=== PATIENT | female | born 1980 | race Caucasian/White ===

== ENCOUNTER 2017-02-26 19:16 | Emergency (ER) | payer OTHER, SELFPAY | END 2017-02-26 19:46 | disposition home or self-care (01) | PROVIDERS: Emergency Provider Nurse Practitioner Family; Family Provider Family Medicine; Visit Provider Nurse Practitioner Family | DX: J02.9 Acute pharyngitis, unspecified (principal) | CPT/HCPCS: 87804; 87880; 99201 ==

== ENCOUNTER → 2019-04-13 18:35 | Outpatient (CLI) | payer OTHER, SELFPAY ==
[2019-04-13 18:52] LABS: Basophils # 0.1 K/mm3 (0-0.2); Basophils % 0.4 % (0.1-2.0); Eosinophils # 0.2 K/mm3 (0.0-0.4); Eosinophils % 1.7 % (0.1-12.0); Hematocrit 41.8 % (37.0-47.0); Hemoglobin 13.7 g/dL (12.2-16.2); Lymphocytes # 2.3 K/mm3 (0.7-4.5); Lymphocytes % 20.1 % (10-50); Mean Corpuscular HGB Conc 32.7 g/dL (31.8-35.4); Mean Corpuscular Hemoglobin 29.9 pg (27.0-31.2); Mean Corpuscular Volume 91.4 fl (81-99); Mean Platelet Volume 8.3 fl (7.4-10.4); Monocytes # 0.6 K/mm3 (0.1-1.0); Monocytes % 4.9 % (1.7-9.3); Neutrophils # 8.3 K/mm3 (1.8-7.8); Neutrophils % 72.7 % (37.0-80.0); Platelet Count 298 K/mm3 (142-424); Red Blood Count 4.57 M/mm3 (4.20-5.40); White Blood Count 11.4 K/mm3 (4.8-10.8)
[2019-04-13 19:28] LABS: Amphetamine/Metha Screen,Urine Negative ng/mL (<1000); Barbiturates Screen,Urine Negative ng/mL (<200); Benzodiazepines Screen,Urine Negative ng/mL (<200); Cannabinoid Screen,Urine Negative ng/mL (<50); Cocaine Screen,Urine Negative ng/mL (<300); Methadone Screen,Urine Negative ng/mL (<300); Opiate Screen,Urine Negative ng/mL (<300); Phencyclidine Screen,Urine Negative ng/mL (<25)
[2019-04-13 20:46] LABS: Alanine Aminotransferase 20 U/L (9-52); Albumin Level 3.9 g/dL (3.4-5.0); Albumin/Globulin Ratio 1.3 (1.1-1.8); Alkaline Phosphatase 132 U/L (46-116); Anion Gap 13.8 mEq/L (5-15); Aspartate Amino Transferase 16 U/L (15-37); Bilirubin,Total 0.2 mg/dL (0.2-1.0); Blood Urea Nitrogen 11 mg/dL (7-18); Calcium 8.7 mg/dL (8.5-10.1); Carbon Dioxide 25 mmol/L (21.0-32.0); Chloride 108 mmol/L (98-107); Chol/HDL Ratio 3.4 (1-3.5); Cholesterol 152 mg/dL (140-200); Creatinine,Serum 0.66 mg/dL (0.55-1.02); Estimated Glomerular Filt Rate 99 ml/min (>60); GFR (African American) 120 ML/MIN (>60); Globulin 3.1 gm/dl (1.3-3.2); Glucose 110 mg/dL (74-106); HDL Cholesterol 45 mg/dL (29-89); LDL Cholesterol 67 mg/dL (0-130); Potassium 3.8 mmoL/L (3.5-5.1); Sodium 143 mmol/L (137-145); T4 (Thyroxine) 6.8 ug/dl (4.7-13.3); Thyroid Stimulating Hormone 0.91 uIU/ml (0.358-3.740); Triglycerides 201 mg/dL (30-200); VLDL Cholesterol 40 mg/dL (0-40)
[2019-04-15 10:48] LABS: Vitamin D 25 Hydroxy 20.7 ng/mL (30.0-100.0)
== END ==
PROVIDERS: Visit Provider Nurse Practitioner Family
DX: E66.9 Obesity, unspecified (principal); E55.9 Vitamin D deficiency, unspecified
CPT/HCPCS: 80053; 80061; 80305; 82652; 84436; 84443; 85025

== ENCOUNTER → 2019-04-18 11:37 | Outpatient (CLI) | payer OTHER, SELFPAY ==
--- NOTE | 2019-04-18 11:41 | XR_ITS ---
PROCEDURE: XR CHEST 2V CLINICAL HISTORY: elevated alk phos COMPARISON: No exams were available for comparison FINDINGS: The cardiomediastinal silhouette and pulmonary vascularity are within normal limits. The lungs are clear without infiltrates, suspicious nodules, or pleural effusions. There is mild dextroscoliotic bowing of the mid thoracic spine. IMPRESSION: No acute findings. Dictated by: Jeff Reece 04/18/2019 15:19 Electronically signed by Jeff Reece in [facility] 04/18/2019 15:19
== END ==
PROVIDERS: PCP Internal Medicine Pulmonary Disease; Visit Provider Nurse Practitioner Family
DX: R74.8 Abnormal levels of other serum enzymes (principal)
CPT/HCPCS: 71046

== ENCOUNTER → 2019-05-18 07:37 | Outpatient (CLI) | payer OTHER, MEDICAID, SELFPAY ==
[2019-05-18 11:19] LABS: Alkaline Phosphatase 99 U/L (38-126)
== END ==
PROVIDERS: Visit Provider Nurse Practitioner Family
DX: R74.8 Abnormal levels of other serum enzymes (principal)
CPT/HCPCS: 36415; 84075

== ENCOUNTER 2019-07-25 18:37 | Emergency (ER) | payer OTHER, SELFPAY ==
[2019-07-25 18:38] VITALS: BP 150/87; PULSE 98; RESP 18; TEMP 36.9; O2SAT 100; BMI 30.2
--- NOTE | 2019-07-25 18:45 | CT_ITS ---
PROCEDURE: CT ABDOMEN PELVIS W CON CLINICAL INDICATION: abd pain abd pain and bloating COMPARISON: ABDPELW/O CT ABD PELVIS W/O CONTRAST from 11/03/2015 TECHNIQUE: IV Contrast: 75ML OPTIRAY 350 Oral Contrast none given Axial images obtained with sagittal and coronal reformats. All CT scans at the facility use one or more dose reduction, viz: automated exposure control, ma/kV adjustment per patient size (including targeted exams where dose is matched to indication, i.e. head), or iterative reconstruction technique. FINDINGS: Lower thorax: There is stable minimal postinflammatory scarring right middle lobe, there is no pleural fluid. ABDOMEN: Liver: No masses or biliary dilatation. Gallbladder: Nondistended. No radio opaque stones. Pancreas: No masses or peripancreatic fluid collections. Spleen: unremarkable Adrenals: unremarkable Kidneys/ureters: The kidneys are normal size and show symmetrical function both appearing normal. ABDOMEN & PELVIS: Stomach bowel: The stomach and small bowel appear normal. There is moderate scattered stool and gas seen throughout the colon. Peritoneum: No abnormal fluid collections. No obvious inflammatory changes. No free air. There is a stable small ventral hernia seen just above the level of the umbilicus containing fat only unchanged in size and appearance from the previous exam 11/03/2015. Lymph nodes: No enlarged lymph nodes apparent. Vasculature: No evidence of abdominal aortic aneurysm. No retroperitoneal hemorrhage evident. Bones: No acute fracture PELVIS: Reproductive: The uterus is slightly enlarged and somewhat retroverted. There is a right ovarian cyst measuring 3.4 x 2.8 by 3.1 cm. There appears to be a small amount of fluid within the endometrial canal, I am not aware of the menstrual period status. There is a small amount of cul-de-sac fluid likely physiologic. Bladder: The bladder is partially decompressed Appendix: The appendix is normal caliber and retrocecal in location. IMPRESSION: Stable small ventral hernia containing fat only, small right ovarian cyst with borderline enlarged uterus, no acute abdominal or pelvic pathology identified Dictated by: Dr. Mundo Webb MD 07/25/2019 20:[address] Mundo Webb MD in [facility] 07/25/2019 20:26
[2019-07-25 18:57] LABS: Microscopic, Urine URINE MICROSCOPIC (MICROSCOPIC)
[2019-07-25 19:00] LABS: Basophils # 0.1 K/mm3 (0-0.2); Basophils % 0.6 % (0.1-2.0); Eosinophils # 0.3 K/mm3 (0.0-0.4); Hematocrit 41.5 % (37.0-47.0); Hemoglobin 14.3 g/dL (12.2-16.2); Lymphocytes # 3.5 K/mm3 (0.7-4.5); Lymphocytes % 28.7 % (10-50); Mean Corpuscular HGB Conc 34.5 g/dL (31.8-35.4); Mean Corpuscular Hemoglobin 30.8 pg (27.0-31.2); Mean Corpuscular Volume 89.2 fl (81-99); Mean Platelet Volume 7.6 fl (7.4-10.4); Monocytes # 0.5 K/mm3 (0.1-1.0); Monocytes % 4.4 % (1.7-9.3); Neutrophils # 7.9 K/mm3 (1.8-7.8); Neutrophils % 64.4 % (37.0-80.0); Platelet Count 282 K/mm3 (142-424); Red Blood Count 4.65 M/mm3 (4.20-5.40); Red Cell Distribution Width 12.3 % (11.5-17.5); White Blood Count 12.3 K/mm3 (4.8-10.8)
[2019-07-25 19:02] LABS: Chloride 102 mmol/L (98-107)
[2019-07-25 19:03] LABS: Appearance,Urine CLEAR (Clear); Bilirubin,Urine Negative (Negative); Blood, Urine Negative (Negative); Color,Urine YELLOW (Yellow); Glucose,Urine (UA) Negative (Negative); Ketones,Urine Negative (Negative); Leukocyte Esterase,Urine Negative (Negative); Nitrate,Urine Negative (Negative); Potassium 3.6 mmoL/L (3.5-5.1); Protein,Urine Negative (Negative); Sodium 139 mmol/L (136-145); Specific Gravity, Urine 1.025 (1.005-1.030); Urobilinogen,Urine 0.2 EU/dl (0.2)
[2019-07-25 19:05] LABS: Alanine Aminotransferase 18 U/L (12-78); Alkaline Phosphatase 112 U/L (38-126); Amylase 42 U/L (30-110); Anion Gap 11.6 mEq/L (5-15); Aspartate Amino Transferase 25 U/L (14-36); Bilirubin,Total 0.3 mg/dl (0.2-1.3); Blood Urea Nitrogen 7 mg/dl (7-17); Carbon Dioxide 29 mmol/L (22.0-30.0); Creatinine Clearance Estimated 143 mL/min (50-200); Estimated Glomerular Filt Rate 111 ml/min (>60); GFR (African American) 134 ML/MIN (>60)
[2019-07-25 19:06] LABS: Albumin Level 4.1 g/dl (3.5-5.0); Albumin/Globulin Ratio 1.4 (1.1-1.8); Calcium 9.4 mg/dl (8.4-10.2); Glucose 108 mg/dl (74-100); Lipase 47 U/L (23-300); Total Protein,Serum 7.1 g/dl (6.3-8.2)
[2019-07-25 19:07] LABS: Urine Pregnancy, HCG Qual. Negative (Negative)
[2019-07-25 19:10] LABS: Bacteria,Urine Trace /lpf; Mucus,Urine 1+ /lpf; Squamous Epithelial Cell,Urine Occasional #/hpf (0-5); WBC,Urine Occasional #/hpf (0-3)
--- NOTE | 2019-07-25 19:37 | HMH.EDABDPAI ---
ED Disposition Condition on Discharge: Good - Critical Care Critical Care Time: No <Prince Collins - Last Filed: 07/25/19 19:39> <Ag Bustos - Last Filed: 07/25/19 21:30> Clinical Impression: Abdominal pain Qualifiers: Abdominal location: right upper quadrant Qualified Code(s): R10.11 - Right upper quadrant pain Disposition: Home, Self-Care Instructions: DI for Acute Abdomen Additional Instructions: call pcp in am for follow up Referrals: Bryan Coe MD [Primary Care Provider] - Attestation: On 07/25/19, the high probability of a clinically significant, sudden or life threatening deterioration of the following system(s) required my full and direct attention, intervention and personal management. The time I documented below is in addition to time spent performing reported procedures but includes the following listed in this critical care notation. Medical Decision Making - Medical Records Medical records reviewed: Yes: I reviewed the patient's medical records. - Bravo Inquiry Pt receiving controlled substance: No - Lab Data Lab results reviewed: Yes: I reviewed the patient's lab results. Result diagrams: 07/25/19 18:51 07/25/19 18:51 <Prince Collins - Last Filed: 07/25/19 19:39> - Lab Data Result diagrams: 07/25/19 18:51 07/25/19 18:51 - CT Data CT Scan: Abdomen, Pelvis Time Received: 21:[address] Reviewed: Yes: I have viewed the radiologist's interpretation Preliminary Findings: Abnormal (see report ) - Reevaluation(s) Time: 21:29 <Ag Bustos - Last Filed: 07/25/19 21:30> Vital Signs: 07/25/19 18:38 Temperature 98.5 F Temperature Source Temporal Artery Scan Pulse Rate [Right] 98 H Respiratory Rate 18 Blood Pressure [Right Arm] 150/87 H Blood Pressure Mean [Right Arm] 108 02 Sat by Pulse Oximetry 100 - Lab Data Lab Results 07/25/19 18:51: Urine Color Yellow, Urine Appearance Clear, Urine pH 6.0, Ur Specific [place] 1.025, Urine Protein Negative, Urine Glucose (UA) Negative, Urine Ketones Negative, Urine Blood Negative, Urine Nitrate Negative, Urine Bilirubin Negative, Urine Urobilinogen 0.2, Ur Leukocyte Esterase Negative, Urine WBC Occasional, Ur Squamous Epith Cells Occasional, Urine Bacteria Trace, Urine Mucus 1+ 07/25/19 18:51: WBC 12.3 H, RBC 4.65, Hgb 14.3, Hct 41.5, MCV 89.2, MCH 30.8, MCHC 34.5, RDW 12.3, Plt Count 282, MPV 7.6, Neut % (Auto) 64.4, Lymph % (Auto) 28.7, [place] % (Auto) 4.4, Eos % (Auto) 2.0, Baso % (Auto) 0.6, Neut # (Auto) 7.9 H, Lymph # (Auto) 3.5, [place] # (Auto) 0.5, Eos # (Auto) 0.3, Baso # (Auto) 0.1 07/25/19 18:51: Urine HCG, Qual Negative 07/25/19 18:51: Sodium 139, Potassium 3.6, Chloride 102, Carbon Dioxide 29, Anion Gap 11.6, BUN 7, Creatinine 0.60, Estimated Creat Clear 143, Estimated GFR 111, Est GFR ( Amer) 134, Glucose 108 H, Calcium 9.4, Total Bilirubin 0.3, AST 25, ALT 18, Alkaline Phosphatase 112, Total Protein 7.1, Albumin 4.1, Globulin 3.0, Albumin/Globulin Ratio 1.4, Amylase 42, Lipase 47 Orders (Tests/Meds): ED MEDICATIONS Generic Name Dose Route Start Last Admin Trade Name Freq PRN Reason Stop Dose Admin Sodium Chloride 8 ml 07/25/19 21:18 Sodium Chloride 0.9% 10ml Vial IV 08/24/19 21:17 NEEDED PRN dilute pepcid Discontinued Medications Generic Name Dose Route Start Last Admin Trade Name Freq PRN Reason Stop Dose Admin Famotidine 20 mg 07/25/19 21:18 07/25/19 21:19 Pepcid 20mg/2ml Vial IV 07/25/19 21:19 20 mg ONCE ONE Administration Ioversol 75 ml 07/25/19 20:17 07/25/19 20:21 Rad-Optiray 350 100ml Vial IV 07/25/19 20:18 75 ml ONCE ONE Administration Protocol Ketorolac Tromethamine 30 mg 07/25/19 21:18 07/25/19 21:19 Toradol 30mg/Ml Vial IV 07/25/19 21:19 30 mg ONCE ONE Administration Metoclopramide HCl 10 mg 07/25/19 21:18 07/25/19 21:19 Reglan 10mg/2ml Vial IVP 07/25/19 21:19 10 mg ONCE ONE Administration Sodium Chlorid
[2019-07-25 21:35] VITALS: BP 121/74; PULSE 63; RESP 16; TEMP 36.5; O2SAT 100
== END 2019-07-25 21:40 | disposition home or self-care (01) ==
PROVIDERS: Emergency Provider Family Medicine; PCP Family Medicine
DX: R10.30 Lower abdominal pain, unspecified (principal); R10.11 Right upper quadrant pain; F41.8 Other specified anxiety disorders
CPT/HCPCS: 74177; 80053; 81001; 81025; 82150; 83690; 85025; 96365; 96374; 96375; 99283; Q9967

== ENCOUNTER → 2019-08-01 08:22 | Outpatient (CLI) | payer OTHER, SELFPAY ==
--- NOTE | 2019-08-01 09:32 | US_ITS ---
PROCEDURE: US ABDOMEN LIMITED CLINICAL INDICATION: ABD PAIN,MIGRAINES,N/V Right upper quadrant pain COMPARISON: No exams were available for comparison FINDINGS: PANCREAS: Unremarkable. No obvious mass or abnormal fluid collection. No ductal dilatation LIVER: No focal liver lesions demonstrated. Homogeneous echogenicity. No intrahepatic biliary ductal dilatation evident. There is appropriate direction of blood flow within a non dilated portal vein RIGHT KIDNEY: Unremarkable. Normal size and echogenicity. No hydronephrosis GALLBLADDER: There is a small amount of sludge in the gallbladder. No shadowing stones are demonstrated. Bile duct is normal at 2 mm. No gallbladder wall thickening, pericholecystic fluid, or biliary dilatation is evident. IMPRESSION: Gallbladder sludge otherwise negative right upper quadrant ultrasound Dictated by: Eitan Albert MD 08/01/2019 14:26 Electronically signed by Eitan Albert MD in [facility] 08/01/2019 14:26
== END ==
PROVIDERS: PCP Family Medicine; Visit Provider Nurse Practitioner
DX: R10.9 Unspecified abdominal pain (principal); R11.2 Nausea with vomiting, unspecified; G43.909 Migraine, unspecified, not intractable, without status migrainosus
CPT/HCPCS: 76705

== ENCOUNTER → 2019-08-15 08:59 | Outpatient (CLI) | payer OTHER, SELFPAY ==
--- NOTE | 2019-08-15 09:05 | NM_ITS ---
PROCEDURE: NM HEPATOBILIARY W PHARM CLINICAL INDICATION: N/V,ABD PAIN Gallbladder sludge on ultrasound COMPARISON: No exams were available for comparison TECHNIQUE: DOSE: 8.4 mCi technetium Choletec 1.5 mcg of CCK FINDINGS: Homogeneous activity is present within the hepatic parenchyma. Activity is present in the gallbladder by 5 minutes. Activity is present in the small bowel by 25 minutes. The gallbladder ejection fraction is calculated to be 83 percent. CCK-The patient reported mild pain during CCK infusion. IMPRESSION: Unremarkable hepatobiliary scan. No evidence of common or cystic duct obstruction with normal gallbladder ejection Dictated by: Eitan Albert MD 08/15/2019 17:17 Electronically signed by Eitan Albert MD in [facility] 08/15/2019 17:17
--- NOTE | 2019-08-15 09:30 | HMH.ITSHM ---
Current Home Medications as stated by this patient Diomedes Morris or product support representative. []PHENTERMINE VITAMIN D2
== END ==
PROVIDERS: PCP Family Medicine; Visit Provider Nurse Practitioner
DX: R10.9 Unspecified abdominal pain (principal); R11.2 Nausea with vomiting, unspecified
CPT/HCPCS: 78227; A9537; J2805

== ENCOUNTER → 2019-10-04 08:07 | Outpatient (POV) | payer OTHER, MEDICAID, SELFPAY | PROVIDERS: PCP Family Medicine; Visit Provider Dermatology | DX: Z00.00 Encounter for general adult medical examination without abnormal findings (principal) ==

== ENCOUNTER 2020-02-03 15:05 | Emergency (ER) | payer OTHER, SELFPAY ==
[2020-02-03 15:14] VITALS: BP 140/92; PULSE 100; RESP 18; O2SAT 99; BMI 30.2
--- NOTE | 2020-02-03 15:41 | HMH.EDUTC ---
[facility] [place] Disposition Clinical Impression: Sinusitis Qualifiers: Sinusitis location: unspecified location Chronicity: acute Recurrence: non-recurrent Qualified Code(s): J01.90 - Acute sinusitis, unspecified Disposition: Home, Self-Care Condition on Discharge: Good Instructions: Sinusitis, DI for Sinusitis Additional Instructions: Drink plenty of fluids. Take tylenol or ibuprofen for pain or fever. Take the medications as directed. Follow up with your regular doctor. GO TO THE ER FOR ANY WORSENING SYMPTOMS Prescriptions: Brompheniramine/Pseudoephed/Dm [Bromfed Dm Cough Syrup] 5 ml PO Q6HP PRN #240 syrup PRN Reason: Cough Transmission Status: Received by [id number] predniSONE [Deltasone 10mg tablet] 10 mg PO BID 3 Days #6 tab Transmission Status: Received by [id number] Azithromycin [Z-Christian 250mg Tab*] 250 mg PO UD DOSE PK #6 tab Transmission Status: Received by [id number] Referrals: Bryan Coe MD [Primary Care Provider] - Time of Disposition: 15:51 Medical Decision Making - Medical Records Medical records reviewed: No: I reviewed the patient's medical records. - Bravo Inquiry Pt receiving controlled substance: No Vital Signs: 02/03/20 15:14 02/03/20 15:57 Temperature 98.1 F Temperature Source Oral Pulse Rate 100 H Pulse Rate [Radial] 100 H Respiratory Rate 18 18 Blood Pressure 140/92 H Blood Pressure [Right Arm] 140/92 H Blood Pressure Mean [Right Arm] 108 Blood Pressure Source Automatic Cuff Blood Pressure Source [Right Arm] Automatic Cuff Blood Pressure Position Sitting Blood Pressure Position [Right Arm] Sitting 02 Sat by Pulse Oximetry 99 Oxygen Delivery Method Room Air Room Air - Lab Data Lab Results 02/03/20 15:17: Strep Scn Rapid Clinic Negative Orders (Tests/Meds): ORDERS Category Date Time Status Covid-19 Nasal PCR ([facility]) Stat Lab 02/03/20 15:11 Received Strep Screen Confirmation Stat Micro 02/03/20 15:17 Received [facility] [place] HPI - General Stated complaint: cough, congestion, covid exposure Time Seen by Provider: 02/03/20 15:41 Mode of Arrival: Ambulatory Source of Information: Patient Limitations: No Limitations Description of Symptoms (Recalled from Triage Doc. by RN): sore throat, cough, borges, exhausted since this morning, states she was exposed to covid. HEENT Symptoms (Recalled from RN notes): Yes Resp Symptoms (Recalled from RN notes): No Skin Symptoms (Recalled from RN notes): No MS Symptoms (Recalled from RN notes): No Functional Status (Recalled from RN notes): wnl - History of Present Illness Provider Complaint: She c/o 2 days of worsening sinus congestion. She has also been coughing. She denies any fever/chills/body aches. - Related Data Previous Rx's Medication Instructions Recorded ergocalciferol (vitamin D2) 1,250 50,000 unit PO QWEEK #7 cap 04/16/19 mcg (50,000 unit) capsule phentermine 37.5 mg tablet 37.5 mg PO DAILY #30 tab 06/24/19 Azithromycin [Z-Christian 250mg Tab*] 250 mg PO UD DOSE PK #6 tab 02/03/20 Brompheniramine/Pseudoephed/Dm 5 ml PO Q6HP PRN #240 syrup 02/03/20 [Bromfed Dm Cough Syrup] predniSONE [Deltasone 10mg tablet] 10 mg PO BID 3 Days #6 tab 02/03/20 Allergies Allergy/AdvReac Type Severity Reaction Status Date / Time No Known Allergies Allergy Verified 06/24/19 08:40 - Worker's Comp Is this a Worker's Comp case?: No [facility] History - Hepatitis A Screen Drug use history?: No High risk sexual behaviors?: No History of sexually transmitted infection?: No Currently employed?: No Childcare worker?: No Do you have indoor plumbing?: Yes Do you have electricity?: Yes Attestation statement:: This patient has been screened for Hepatitis A risk factors. I have reviewed the patient's past medical history: Yes Medical History: Reports:: Anxiety, Depression Denies:: Diabetes Mellitus Type 1, Hyperlipidemia, Hypertension, Migraine, MRSA Other Surgeries: Yes: Tubal Lig
[2020-02-03 15:57] VITALS: BP 140/92; PULSE 100; RESP 18; TEMP 36.7; O2SAT 99
[2020-02-03 19:36] LABS: UTC Strep Screen (Rapid) Negative (Negative)
--- NOTE | 2020-02-04 09:33 | PC.NURSE ---
patient notified of positive covid results
== END 2020-02-03 15:59 | disposition home or self-care (01) ==
PROVIDERS: Emergency Provider Nurse Practitioner Family; PCP Family Medicine
DX: U07.1 COVID-19 (principal); F41.8 Other specified anxiety disorders; Z79.899 Other long term (current) drug therapy
CPT/HCPCS: 87880; 99202; U0003

== ENCOUNTER → 2020-02-14 09:30 | Outpatient (CLI) | payer OTHER, MEDICAID, SELFPAY ==
[2020-02-14 11:23] LABS: Coronavirus 19 IgG Antibody Negative (Negative); Coronavirus 19 IgM Antibody Negative (Negative)
== END ==
PROVIDERS: Visit Provider Family Medicine
DX: Z03.818 Encounter for observation for suspected exposure to other biological agents ruled out (principal)
CPT/HCPCS: 36415; 86328

== ENCOUNTER 2020-03-13 04:24 | Emergency (ER) | payer OTHER, SELFPAY ==
[2020-03-13 04:25] VITALS: BP 164/84; PULSE 113; RESP 16; TEMP 36.8; O2SAT 99; BMI 31.9
--- NOTE | 2020-03-13 04:49 | CT_ITS ---
PROCEDURE: CT HEAD/BRAIN WO CON CLINICAL INDICATION: dizziness COMPARISON: No exams were available for comparison TECHNIQUE: Axial images obtained. All CT scans at the facility use one or more dose reduction, viz: automated exposure control, ma/kV adjustment per patient size (including targeted exams where dose is matched to indication, i.e. head), or iterative reconstruction technique. FINDINGS: No midline shift, mass effect, intracranial hemorrhage, hydrocephalus, or extra-axial fluid collection is evident. The calvarium has an unremarkable appearance. No mastoid effusion. No sinus air-fluid level. IMPRESSION: No acute intracranial finding Dictated by: Eitan Albert MD 03/13/2020 06:47 Eitan Albert MD in [place] 03/13/2020 06:47
--- NOTE | 2020-03-13 04:54 | CT_ITS ---
PROCEDURE: CT ABDOMEN PELVIS W CON CLINICAL INDICATION: nausea and vomiting Nausea and vomiting, abdominal cramping COMPARISON: CT CT ABDOMEN PELVIS W CON from 07/25/2019 TECHNIQUE: IV Contrast: 75ML Isovue 370 Oral Contrast None Axial images obtained with sagittal and coronal reformats. All CT scans at the facility use one or more dose reduction, viz: automated exposure control, ma/kV adjustment per patient size (including targeted exams where dose is matched to indication, i.e. head), or iterative reconstruction technique. FINDINGS: LOWER THORAX: There are atelectatic changes in the right middle lobe ABDOMEN & PELVIS: The liver, gallbladder, spleen, adrenal glands, and pancreas have an unremarkable appearance. No intestinal obstruction or free air is evident. No evidence appendicitis or diverticulitis. There is a small supraumbilical hernia which contains fat. There are few fluid-filled loops of small bowel in the left upper quadrant with questionable bowel wall thickening. Possible mild enteritis. There is a complex left ovarian cyst bilobed in nature at 5.5 cm containing an internal septation. The uterus is retroverted and somewhat bulky. Pelvic ultrasound may provide further evaluation. There is a minimal amount of fluid in the cul-de-sac. No acute bony findings. IMPRESSION: 1. Possible mild enteritis. 2. Small supraumbilical hernia. 3. Complex left ovarian cyst and bulky uterus. Pelvic ultrasound may provide further evaluation. Dictated by: Eitan Albert MD 03/13/2020 07:02 Eitan Albert MD in [facility] 03/13/2020 07:02
[2020-03-13 04:56] LABS: Basophils # 0.1 K/mm3 (0-0.2); Basophils % 0.4 % (0.1-2.0); Eosinophils # 0.2 K/mm3 (0.0-0.4); Eosinophils % 1.2 % (0.1-12.0); Hematocrit 43.8 % (37.0-47.0); Hemoglobin 14.5 g/dL (12.2-16.2); Lymphocytes # 3.2 K/mm3 (0.7-4.5); Lymphocytes % 19.5 % (10-50); Mean Corpuscular HGB Conc 33.1 g/dL (31.8-35.4); Mean Corpuscular Volume 90.6 fl (81-99); Mean Platelet Volume 7.4 fl (7.4-10.4); Monocytes % 6.2 % (1.7-9.3); Neutrophils # 11.7 K/mm3 (1.8-7.8); Neutrophils % 72.6 % (37.0-80.0); Platelet Count 289 K/mm3 (142-424); Red Blood Count 4.84 M/mm3 (4.20-5.40); Red Cell Distribution Width 12.6 % (11.5-17.5); White Blood Count 16.2 K/mm3 (4.8-10.8)
[2020-03-13 05:00] LABS: MANUAL DIFFERENTIAL MANUAL DIFFERENTIAL (MANUAL DIFF)
--- NOTE | 2020-03-13 05:00 | CT_ITS ---
PROCEDURE: CT SINUS WO CON CLINICAL HISTORY: dizziness Acute sinusitis COMPARISON: No exams were available for comparison TECHNIQUE: Axial images obtained with sagittal and coronal reformats. All CT scans at the facility use one or more dose reduction, viz: automated exposure control, ma/kV adjustment per patient size (including targeted exams where dose is matched to indication, i.e. head), or iterative reconstruction technique. FINDINGS: Minimal mucosal thickening involves the right maxillary sinus inferiorly. The ostiomeatal complexes are patent. There is minimal leftward nasal septal deviation. There is a right elvia bullosa. The ethmoid frontal and sphenoid sinuses are unremarkable. No mastoid effusion. Scattered small nodes are present in the neck. The TMJs are unremarkable. There are degenerative changes in the cervical spine at C5-C6 and C6-C7 IMPRESSION: 1. No acute finding. 2. Minimal mucosal thickening right maxillary sinus with small right elvia bullosa and mild leftward nasal septal deviation. 3. Cervical spondylosis Dictated by: Eitan Albert MD 03/13/2020 06:50 Eitan Albert MD in [facility] 03/13/2020 06:50
--- NOTE | 2020-03-13 05:01 | PC.NURSE ---
pt to RAD
[2020-03-13 05:05] LABS: Amylase 38 U/L (30-110); Lipase 85 U/L (23-300)
[2020-03-13 05:06] LABS: Alanine Aminotransferase 28 U/L (12-78); Albumin Level 4.2 g/dl (3.5-5.0); Alkaline Phosphatase 126 U/L (38-126); Anion Gap 13.5 mEq/L (5-15); Aspartate Amino Transferase 39 U/L (14-36); Bilirubin,Direct 0.2 mg/dl (0.0-0.4); Bilirubin,Indirect 0.3 mg/dL (0.0-0.9); Bilirubin,Total 0.5 mg/dl (0.2-1.3); Bilirubin,Unconjugated 0.3 mg/dL (0.0-1.1); Blood Urea Nitrogen 11 mg/dl (7-17); Calcium 9.8 mg/dl (8.4-10.2); Carbon Dioxide 24 mmol/L (22.0-30.0); Chloride 104 mmol/L (98-107); Creatinine Clearance Estimated 149 mL/min (50-200); Estimated Glomerular Filt Rate 110 ml/min (>60); GFR (African American) 133 ML/MIN (>60); Glucose 171 mg/dl (74-100); Potassium 3.5 mmoL/L (3.5-5.1); Sodium 138 mmol/L (136-145); Total Protein,Serum 7.4 g/dl (6.3-8.2)
[2020-03-13 05:28] LABS: Microscopic, Urine URINE MICROSCOPIC (MICROSCOPIC)
--- NOTE | 2020-03-13 05:31 | PC.NURSE ---
back from RAD
[2020-03-13 05:35] LABS: Appearance,Urine CLEAR (Clear); Bilirubin,Urine Negative (Negative); Blood, Urine Negative (Negative); Color,Urine YELLOW (Yellow); Glucose,Urine (UA) Negative (Negative); Ketones,Urine Negative (Negative); Leukocyte Esterase,Urine Negative (Negative); Nitrate,Urine Negative (Negative); PH,Urine 5.5 (5.0-8.5); Protein,Urine Negative (Negative); Specific Gravity, Urine >= 1.030 (1.005-1.030); Urobilinogen,Urine 0.2 EU/dl (0.2)
[2020-03-13 05:36] LABS: Urine Pregnancy, HCG Qual. Negative (Negative)
[2020-03-13 05:47] VITALS: BP 120/69; PULSE 98; RESP 17; O2SAT 100
[2020-03-13 06:07] LABS: Erythrocyte Sedimentation Rate 16 mm/hr (0-20)
[2020-03-13 06:20] VITALS: BP 121/85; PULSE 94; RESP 16; O2SAT 96
[2020-03-13 06:33] LABS: Eosinophils % 3 % (0-3); Lymphocytes % 24 % (10-50); Monocytes % 2 % (2-9); Neutrophils % 71 % (42-76); Platelet Estimate Normal; Stomatocytes 1+; Total Cells Counted 100
--- NOTE | 2020-03-13 06:38 | HMH.EDDIZZ ---
ED Disposition Clinical Impression: Vertigo, SIRS (systemic inflammatory response syndrome) Ovarian cyst Qualifiers: Laterality: left Qualified Code(s): N83.202 - Unspecified ovarian cyst, left side Disposition: Home, Self-Care Condition on Discharge: Good Instructions: Dizziness, Nonvertigo Additional Instructions: fluids and see pcp for follow up and recheck if needed in the ed Referrals: Bryan Ceo MD [Primary Care Provider] - - Critical Care Critical Care Time: No Attestation: On 03/13/20, the high probability of a clinically significant, sudden or life threatening deterioration of the following system(s) required my full and direct attention, intervention and personal management. The time I documented below is in addition to time spent performing reported procedures but includes the following listed in this critical care notation. Medical Decision Making - Medical Records Medical records reviewed: Yes: I reviewed the patient's medical records. - Bravo Inquiry Pt receiving controlled substance: No Vital Signs: 03/13/20 04:25 03/13/20 05:47 03/13/20 06:20 Temperature 98.3 F Temperature Source Oral Pulse Rate [Left Radial] 113 H 98 H 94 H Respiratory Rate 16 17 16 Blood Pressure [Right Arm] 164/84 H 120/69 121/85 Blood Pressure Mean [Right Arm] 110 86 97 Blood Pressure Source [Right Arm] Automatic Cuff Automatic Cuff Automatic Cuff Blood Pressure Position [Right Arm] Sitting Sitting Sitting 02 Sat by Pulse Oximetry 99 100 96 Oxygen Delivery Method Room Air Room Air Room Air - Lab Data Lab results reviewed: Yes: I reviewed the patient's lab results. Lab Results 03/13/20 04:37: Urine Color Yellow, Urine Appearance Clear, Urine pH 5.5, Ur Specific [place] >= 1.030, Urine Protein Negative, Urine Glucose (UA) Negative, Urine Ketones Negative, Urine Blood Negative, Urine Nitrate Negative, Urine Bilirubin Negative, Urine Urobilinogen 0.2, Ur Leukocyte Esterase Negative, Urine WBC 3-5, Ur Squamous Epith Cells 3-5 03/13/20 04:37: Urine HCG, Qual Negative 03/13/20 04:42: WBC 16.2 H, RBC 4.84, Hgb 14.5, Hct 43.8, MCV 90.6, MCH 30.0, MCHC 33.1, RDW 12.6, Plt Count 289, MPV 7.4, Neut % (Auto) 72.6, Lymph % (Auto) 19.5, [place] % (Auto) 6.2, Eos % (Auto) 1.2, Baso % (Auto) 0.4, Neut # (Auto) 11.7 H, Lymph # (Auto) 3.2, [place] # (Auto) 1.0, Eos # (Auto) 0.2, Baso # (Auto) 0.1, Total Counted 100, Neutrophils % (Manual) 71, Lymphocytes % (Manual) 24, Monocytes % (Manual) 2, Eosinophils % (Manual) 3, Platelet Estimate Normal, Stomatocytes 1+ 03/13/20 04:42: Sodium 138, Potassium 3.5, Chloride 104, Carbon Dioxide 24, Anion Gap 13.5, BUN 11, Creatinine 0.60, Estimated Creat Clear 149, Estimated GFR 110, Est GFR ( Amer) 133, Glucose 171 H, Calcium 9.8, Total Bilirubin 0.5, Direct Bilirubin 0.2, Conjugated Bilirubin 0.0, Indirect Bilirubin 0.3, Unconjugated Bilirubin 0.3, AST 39 H, ALT 28, Alkaline Phosphatase 126, Total Protein 7.4, Albumin 4.2 03/13/20 04:42: ESR 16 03/13/20 04:42: C-Reactive Protein 3.0, Amylase 38, Lipase 85 Result diagrams: 03/13/20 04:42 03/13/20 04:42 Orders (Tests/Meds): ED MEDICATIONS Generic Name Dose Route Start Last Admin Trade Name Freq PRN Reason Stop Dose Admin Sodium Chloride 1,000 mls @ 999 mls/hr 03/13/20 05:00 03/13/20 04:55 Sod Chlor 0.9% 1000ml Bag IV 03/13/20 06:00 999 mls/hr .Q1H1M ANNITA Administration Sodium Chloride 1,000 mls @ 999 mls/hr 03/13/20 06:45 03/13/20 06:46 Sod Chlor 0.9% 1000ml Bag IV 03/13/20 07:45 999 mls/hr .Q1H1M ANNITA Administration Discontinued Medications Generic Name Dose Route Start Last Admin Trade Name Freq PRN Reason Stop Dose Admin Iopamidol 75 ml 03/13/20 06:17 03/13/20 06:18 Iopamidol-370 (76%);100ml Bottle IV 03/13/20 06:18 75 ml ONCE ONE Administration Methylprednisolone Sodium Succinate 125 mg 03/13/20 04:48 03/13/20 04:55 Methylprednisolone Sod Succ 125mg Vial IV 03/13/20 04:49 125 mg
[2020-03-13 07:56] VITALS: BP 129/88; PULSE 111; O2SAT 96
[2020-03-13 08:07] VITALS: BP 129/89; PULSE 119; RESP 20; TEMP 36.8; O2SAT 97
== END 2020-03-13 08:07 | disposition home or self-care (01) ==
PROVIDERS: Emergency Provider Emergency Medicine; PCP Family Medicine
DX: R42 Dizziness and giddiness (principal); R65.10 Systemic inflammatory response syndrome (SIRS) of non-infectious origin without acute organ dysfunction; N83.202 Unspecified ovarian cyst, left side; F41.8 Other specified anxiety disorders; Z86.16 Personal history of COVID-19; Z79.899 Other long term (current) drug therapy
CPT/HCPCS: 70450; 70486; 74177; 80048; 80076; 81001; 81025; 82150; 83690; 85007; 85025; 85651; 86140; 96365; 96366; 96375; 99283; J2405; Q9967

== ENCOUNTER → 2020-08-13 08:16 | Outpatient (CLI) | payer OTHER, SELFPAY ==
--- NOTE | 2020-08-13 16:34 | XR_ITS ---
PROCEDURE: XR FOOT WT BEARING RT 3V XR foot weight-bearing left three-view CLINICAL INDICATION: Bilateral foot pain COMPARISON: CR XR FOOT WT BEARING LT 3V from 08/13/2020 FINDINGS: Three views of the right foot show no acute fracture or dislocation. Small accessory ossicle adjacent to the talus medially noted. Tiny plantar calcaneal spur. Joint spaces are normal. Three views of the left foot show small accessory ossicle adjacent to the talus medially. No acute fracture or dislocation. Small plantar calcaneal spur. No soft tissue abnormality. IMPRESSION: No acute findings. Small bilateral accessory ossicles adjacent to the talus bilaterally. Small bilateral plantar calcaneal spurs. Dictated by: Simone Lozada 08/14/2020 10:40 Simone Lozada in [facility] 08/14/2020 10:40
== END ==
PROVIDERS: PCP Family Medicine; Visit Provider Podiatrist
DX: M79.672 Pain in left foot (principal); M79.671 Pain in right foot
CPT/HCPCS: 73630

== ENCOUNTER 2021-01-07 15:14 | Emergency (ER) | payer OTHER, SELFPAY ==
[2021-01-07 16:00] VITALS: BP 140/88; PULSE 84; RESP 21; TEMP 36.9; O2SAT 99; BMI 29.7
[2021-01-07 16:21] LABS: Coronavirus 19, PCR Not Detected (NotDetected); Influenza A, PCR Not Detected (NotDetected); Influenza B, PCR Not Detected (NotDetected)
--- NOTE | 2021-01-07 16:24 | HMH.EDUTC ---
[facility] [place] Disposition Clinical Impression: Sinusitis Qualifiers: Sinusitis location: unspecified location Chronicity: unspecified Qualified Code(s): J32.9 - Chronic sinusitis, unspecified Disposition: Home, Self-Care Condition on Discharge: Good Instructions: Sinusitis, DI for Sinusitis, DI for COVID-19 (Suspected or Confirmed ) Additional Instructions: *Monitor Temp, Over the counter Motrin or Tylenol as directed/as needed Tylenol every 4 hours and Motrin every 6 hours (as long as your family doctor has told you that you can take it) for fever or pain. and straight to ER if unable to lower temp less than 101.0 after medication given *Warm salt water gargles may help to soothe the throat *Throat Lozenges *Warm fluids like tea with honey may help to soothe the throat *Sleep elevated *Humidifier/Vaporizer *Flonase 2 sprays in each nostril daily but be aware that it may take 2-3 days before you notice improvement Take medication as prescribed Your throat swab was sent for culture. Those results are typically sent to your primary care. Be sure to follow up in 2-3 days with your family doctor/primary care physician if no improvement so they can review those result and treat if necessary. If you don?t have a primary care doctor, I recommend you get one but in the mean time, you will have to return to a walk in clinic Follow up IMMEDIATELY for new or worsening symptoms or no Noticeable improvement over the next 48-72 hours. 911 for difficulty breathing or swallowing Prescriptions: predniSONE [Deltasone 10mg tablet] 10 mg PO BID 5 Days #10 tab Transmission Status: Pending to [facility] Fluticasone Propionate [Flonase 50mcg nasal spray 16gm] 1 spr NS DAILY #1 ml Transmission Status: Pending to [facility] Azithromycin [Z-Christian 250mg Tab] 250 mg PO DIRECTED #6 tab Transmission Status: Pending to [facility] Referrals: Bryan Coe MD [Primary Care Provider] - As needed Forms: Work/School Release Time of Disposition: 16:38 Medical Decision Making - Bravo Inquiry Pt receiving controlled substance: No Bravo was queried for this patient: No Vital Signs: 01/07/21 16:00 Temperature 98.5 F Temperature Source Oral Pulse Rate [Right Brachial] 84 Respiratory Rate 21 Blood Pressure [Right Arm] 140/88 Blood Pressure Mean [Right Arm] 105 Blood Pressure Source [Right Arm] Automatic Cuff Blood Pressure Position [Right Arm] Sitting 02 Sat by Pulse Oximetry 99 Oxygen Delivery Method Room Air - Lab Data Lab results reviewed: Yes: I reviewed the patient's lab results. Orders (Tests/Meds): ORDERS Category Date Time Status Rapid PCR Covid and Flu A/B Stat Lab 01/07/21 16:[address] [facility] [place] HPI - General Stated complaint: sore throat headache congestion Time Seen by Provider: 01/07/21 16:24 Mode of Arrival: Ambulatory Source of Information: Patient Limitations: No Limitations Description of Symptoms (Recalled from Triage Doc. by RN): PATIENT C/O HEADACHE, SORE THROAT AND CONGESTION SINCE YESTERDAY HEENT Symptoms (Recalled from RN notes): Yes Resp Symptoms (Recalled from RN notes): No Skin Symptoms (Recalled from RN notes): No MS Symptoms (Recalled from RN notes): No Functional Status (Recalled from RN notes): WNL - History of Present Illness Provider Complaint: Patient states that she has been having sinus congestion and pressure and it has continued to feel worse since yesterday. States that she is having sinus congestion and pressure along with cough, sore scratchy throat and body aches States that she worked today and had continued to feel bad do after work she came in to get checked - Related Data Previous Rx's Medication Instructions Recorded Azithromycin [Z-Christian 250mg Tab] 250 mg PO DIRECTED #6 tab 01/07/21 Fluticasone Propionate [Flonase 1 spr NS DAILY #1 ml 01/07/21 50mcg nasal spray 16gm] predniSONE [Deltasone 10mg tablet] 10 mg PO BID 5 Days #10 tab 01/07/21
[2021-01-07 16:26] LABS: UTC Strep Screen (Rapid) Negative (Negative)
[2021-01-07 16:39] VITALS: BP 140/88; PULSE 84; RESP 21; TEMP 36.9; O2SAT 99
== END 2021-01-07 16:44 | disposition home or self-care (01) ==
PROVIDERS: Emergency Provider Nurse Practitioner; PCP Family Medicine
DX: J32.9 Chronic sinusitis, unspecified (principal)
CPT/HCPCS: 87880; 99203; C9803; G0463; U0003; U0005

== ENCOUNTER → 2021-03-15 14:21 | Outpatient (CLI) | payer OTHER, SELFPAY ==
[2021-03-15 14:54] LABS: Influenza A, PCR Not Detected (NotDetected); Influenza B, PCR Not Detected (NotDetected)
[2021-03-15 15:22] LABS: Coronavirus 19, PCR Detected (NotDetected)
== END ==
PROVIDERS: Visit Provider Nurse Practitioner
DX: U07.1 COVID-19 (principal)
CPT/HCPCS: C9803; U0003; U0005

== ENCOUNTER 2021-04-30 09:04 | Emergency (ER) | payer OTHER, SELFPAY ==
[2021-04-30 09:04] VITALS: BP 108/86; PULSE 97; RESP 16; TEMP 36.7; O2SAT 97; BMI 33.0
--- NOTE | 2021-04-30 09:38 | HMH.EDUTC ---
[facility] [place] Disposition Clinical Impression: Sinusitis Qualifiers: Sinusitis location: unspecified location Chronicity: unspecified Qualified Code(s): J32.9 - Chronic sinusitis, unspecified Disposition: Home, Self-Care Condition on Discharge: Good Instructions: Sinusitis, DI for Sinusitis Additional Instructions: *Monitor Temp, Over the counter Motrin or Tylenol as directed/as needed Tylenol every 4 hours and Motrin every 6 hours (as long as your family doctor has told you that you can take it) for fever or pain. and straight to ER if unable to lower temp less than 101.0 after medication given *Warm salt water gargles may help to soothe the throat *Throat Lozenges *Warm fluids like tea with honey may help to soothe the throat *Sleep elevated *Humidifier/Vaporizer *Flonase 2 sprays in each nostril daily but be aware that it may take 2-3 days before you notice improvement Take medication as prescribed Return if needed Follow up IMMEDIATELY for new or worsening symptoms or no Noticeable improvement over the next 48-72 hours. 911 for difficulty breathing or swallowing Prescriptions: Amoxicillin/Potassium Clav [Amox-Clav 875-125 mg Tablet] 1 tab PO BID #14 tab [facility]: [facility] predniSONE [Deltasone 10mg tablet] 10 mg PO BID 5 Days #10 tab Transmission Status: Pending to [facility] Referrals: Bryan Coe MD [Primary Care Provider] - As needed Time of Disposition: 09:42 Medical Decision Making - Bravo Inquiry Pt receiving controlled substance: No Bravo was queried for this patient: No Vital Signs: 04/30/21 09:04 Temperature 98.0 F Temperature Source Oral Pulse Rate [Right] 97 H Respiratory Rate 16 Blood Pressure [Right Arm] 108/86 L Blood Pressure Mean [Right Arm] 93 Blood Pressure Source [Right Arm] Automatic Cuff Blood Pressure Position [Right Arm] Sitting 02 Sat by Pulse Oximetry 97 Oxygen Delivery Method Room Air [facility] [place] HPI - General Stated complaint: congestion, h/a, body aches Time Seen by Provider: 04/30/21 09:38 Mode of Arrival: Ambulatory Source of Information: Patient Limitations: No Limitations Description of Symptoms (Recalled from Triage Doc. by RN): Pt c/o congestion, body aches, headache that started yesterday HEENT Symptoms (Recalled from RN notes): Yes (congestion, body aches, headache) Resp Symptoms (Recalled from RN notes): No Skin Symptoms (Recalled from RN notes): No MS Symptoms (Recalled from RN notes): No Functional Status (Recalled from RN notes): na - History of Present Illness Provider Complaint: Patient states that she has been having sinus issues about a week ago States that yesterday it got worse States that she is having sinus pain and pressure, headache, feeling achy and over all not feeling well States that she thinks she may have a sinus infection - Related Data Previous Rx's Medication Instructions Recorded Azithromycin [Z-Christian 250mg Tab] 250 mg PO DIRECTED #6 tab 01/07/21 Fluticasone Propionate [Flonase 1 spr NS DAILY #1 ml 01/07/21 50mcg nasal spray 16gm] predniSONE [Deltasone 10mg tablet] 10 mg PO BID 5 Days #10 tab 01/07/21 Amoxicillin/Potassium Clav 1 tab PO BID #14 tab 04/30/21 [Amox-Clav 875-125 mg Tablet] predniSONE [Deltasone 10mg tablet] 10 mg PO BID 5 Days #10 tab 04/30/21 Allergies Allergy/AdvReac Type Severity Reaction Status Date / Time No Known Allergies Allergy Verified 11/01/20 15:54 - Worker's Comp Is this a Worker's Comp case?: No [facility] History - Hepatitis A Screen Drug use history?: No High risk sexual behaviors?: No History of sexually transmitted infection?: No Currently employed?: No Childcare worker?: No Do you have indoor plumbing?: Yes Do you have electricity?: Yes Attestation statement:: This patient has been screened for Hepatitis A risk factors. I have reviewed the patient's past medical history: Yes Medical History: Reports:: Anxiety, Depression, Migr
[2021-04-30 09:57] VITALS: BP 108/86; PULSE 97; RESP 16; TEMP 36.7; O2SAT 97
== END 2021-04-30 09:57 | disposition home or self-care (01) ==
PROVIDERS: Emergency Provider Nurse Practitioner; PCP Family Medicine
DX: J32.9 Chronic sinusitis, unspecified (principal)
CPT/HCPCS: 99212; G0463

== ENCOUNTER 2022-02-24 08:56 | Emergency (ER) | payer OTHER, SELFPAY ==
[2022-02-24 09:15] VITALS: BP 137/92; PULSE 82; RESP 16; TEMP 37.1; O2SAT 95; BMI 23.3
--- NOTE | 2022-02-24 09:22 | EXP.UTC ---
Discharge Plan Disposition Patient Disposition: Home, Self-Care Condition: Good Prescriptions Prescriptions: New azithromycin [Zithromax] 250 mg tablet 250 mg PO UD DOSE PK Qty: 6 0RF Rx Instructions: Take two (2) tablets today, then one (1) tablet days #2 thru #5 benzonatate [benzonatate] 100 mg capsule 100 mg PO TIDP PRN (Reason: Cough) Qty: 30 0RF methylprednisolone 4 mg Tablets,Dose Pack 4 mg PO DIRECTED Qty: 21 0RF No Action cholecalciferol (vitamin D3) 25 mcg (1,000 unit) capsule 25 mcg PO DAILY metformin 500 mg tablet 500 mg PO BID Qty: 60 2RF phentermine [Adipex-P] 37.5 mg tablet 37.5 mg PO DAILY Qty: 30 0RF Rx Instructions: must administer 30 minutes before or 1-2 hours after breakfast Referrals Follow up/Referrals: Aftab Alonso MD [Primary Care Provider] - See instructions Activity Restrictions/Add. Instructions Additional Instructions/Restrictions: Drink plenty of fluids. Take tylenol or ibuprofen for pain or fever. Take the medications as directed. Follow up with your regular doctor. GO TO THE ER FOR ANY WORSENING SYMPTOMS Clinical Impressions Clinical Impression: Sinusitis Instructions Patient Instructions: DI for Sinusitis Discharge ED Provider: Simone Fournier [facility] [place] [place] General Stated complaint: Congestion,Cough Mode of Arrival: Ambulatory Source of Information: Patient Limitations: No Limitations Time Seen by Provider: 02/24/22 09:22 Description of Symptoms (Recalled from Triage Doc. by RN): pt comes in with c/o sinus congestion ongoing for a few days. productive cough and head pressure. HEENT Symptoms (Recalled from RN notes): Yes Resp Symptoms (Recalled from RN notes): Yes Skin Symptoms (Recalled from RN notes): No MS Symptoms (Recalled from RN notes): No Functional Status (Recalled from RN notes): n/a History of Present Illness Provider Complaint: She states that for the past 3 days she has had sinus congestion, a sinus headache, and sinus drainage. She denies any fever/chills/body aches. Related Data Home Medications Medication Instructions Recorded Confirmed cholecalciferol (vitamin D3) 25 25 mcg PO DAILY 10/15/21 10/15/21 mcg (1,000 unit) capsule Previous Rx's Medication Instructions Recorded metformin 500 mg tablet 500 mg PO BID #60 tabs 10/15/21 phentermine 37.5 mg tablet 37.5 mg PO DAILY #30 tabs 12/18/21 (Adipex-P) azithromycin 250 mg tablet 250 mg PO UD DOSE PK #6 tabs 02/24/22 (Zithromax) benzonatate 100 mg capsule 100 mg PO TIDP PRN Cough #30 caps 02/24/22 methylprednisolone 4 mg tablets in 4 mg PO DIRECTED #21 tabs 02/24/22 a dose pack Allergies Allergy/AdvReac Type Severity Reaction Status Date / Time No Known Allergies Allergy Verified 02/24/22 09:17 Worker's Comp Is this a Worker's Comp case?: No PFSH [facility] Disclaimer: The information contained in this section may have been updated after the patient was seen, as this information can be updated by other users. Social History Smoking Status: Never smoker alcohol intake: current substance use type: denies use current occupational status: employed Travel in the last 8 weeks: None household members: spouse and children housing: house current occupation: [employer] ROS Obtained: Yes All systems reviewed & no additional complaints except as documented Constitutional Constitutional: Reports chills and Denies fever(s) Eyes Eyes: Denies eye discharge ENT Ears, Nose, Mouth, and Throat: Reports as per HPI Cardiovascular Cardiovascular: Denies chest pain Respiratory Respiratory: Denies chest congestion and Reports cough Gastrointestinal Gastrointestingal: Reports nausea; Denies abdominal pain, constipation, cramping, diarrhea or vomiting Musculoskeletal Musculoskeletal: Denies arthralgias Integumentary/Breasts Skin/Breast: Denies rash Neurologic Flash
[2022-02-24 10:16] VITALS: BP 137/92; PULSE 82; RESP 16; TEMP 37.1
== END 2022-02-24 10:19 | disposition home or self-care (01) ==
PROVIDERS: Emergency Provider Nurse Practitioner Family; PCP Family Medicine
DX: J32.9 Chronic sinusitis, unspecified (principal)
CPT/HCPCS: 96372; 99212; G0463

== ENCOUNTER → 2022-03-31 11:05 | Outpatient (CLI) | payer OTHER, SELFPAY ==
[2022-03-31 10:08] LABS: MANUAL DIFFERENTIAL MANUAL DIFFERENTIAL (MANUAL DIFF); Microscopic, Urine URINE MICROSCOPIC (MICROSCOPIC)
[2022-03-31 10:21] LABS: Appearance,Urine CLEAR (Clear); Basophils % 0.6 % (0.1-2.0); Bilirubin,Urine Negative (Negative); Blood, Urine Negative (Negative); Color,Urine YELLOW (Yellow); Eosinophils # 0.2 K/mm3 (0.0-0.4); Eosinophils % 2.2 % (0.1-12.0); Glucose,Urine (UA) Negative (Negative); Hematocrit 42.8 % (37.0-47.0); Ketones,Urine Negative (Negative); Leukocyte Esterase,Urine Negative (Negative); Lymphocytes # 2.4 K/mm3 (0.7-4.5); Lymphocytes % 32.9 % (10-50); Mean Corpuscular HGB Conc 32.8 g/dL (31.8-35.4); Mean Corpuscular Hemoglobin 29.3 pg (27.0-31.2); Mean Corpuscular Volume 89.3 fl (81-99); Mean Platelet Volume 7.9 fl (7.4-10.4); Monocytes # 0.5 K/mm3 (0.1-1.0); Monocytes % 6.2 % (1.7-9.3); Neutrophils # 4.2 K/mm3 (1.8-7.8); Neutrophils % 58.1 % (37.0-80.0); Nitrate,Urine Negative (Negative); PH,Urine 6.5 (5.0-8.5); Platelet Count 363 K/mm3 (142-424); Protein,Urine Negative (Negative); Red Blood Count 4.79 M/mm3 (4.20-5.40); Red Cell Distribution Width 12.3 % (11.5-17.5); Urobilinogen,Urine 0.2 EU/dl (0.2); White Blood Count 7.3 K/mm3 (4.8-10.8)
[2022-03-31 10:33] LABS: Bacteria,Urine Trace /lpf; Squamous Epithelial Cell,Urine Occasional #/hpf (0-5); WBC,Urine Occasional #/hpf (0-3)
[2022-03-31 10:44] LABS: Alanine Aminotransferase 19 U/L (12-78); Albumin Level 4.3 g/dl (3.5-5.0); Albumin/Globulin Ratio 1.5 (1.1-1.8); Alkaline Phosphatase 120 U/L (38-126); Anion Gap 10.2 mEq/L (5-15); Aspartate Amino Transferase 26 U/L (14-36); Bilirubin,Total 0.4 mg/dl (0.2-1.3); Blood Urea Nitrogen 9 mg/dl (7-17); Calcium 9.2 mg/dl (8.4-10.2); Carbon Dioxide 26 mmol/L (22.0-30.0); Chloride 105 mmol/L (98-107); Chol/HDL Ratio 3.4 (1-3.5); Cholesterol 189 mg/dl (140-200); Estimated Glomerular Filt Rate 135 ml/min (>60); GFR (African American) 163 ML/MIN (>60); Globulin 2.8 g/dL (1.3-3.2); Glucose 105 mg/dl (74-100); HDL Cholesterol 56 mg/dl (40-60); Potassium 4.2 mmoL/L (3.5-5.1); Sodium 137 mmol/L (136-145); Total Protein,Serum 7.1 g/dl (6.3-8.2); Triglycerides 135 mg/dl (30-150); VLDL Cholesterol 27 mg/dL (0-40)
[2022-03-31 10:49] LABS: Hemoglobin A1C 5.6 % (4.0-6.0)
[2022-03-31 10:55] LABS: Direct LDL Cholesterol 110.37 mg/dL (100-129)
[2022-03-31 11:15] LABS: Thyroid Stimulating Hormone 1.18 uIU/mL (0.465-4.68)
[2022-03-31 11:40] LABS: Eosinophils % 2 % (0-3); Lymphocytes % 37 % (10-50); Monocytes % 3 % (2-9); Neutrophils % 58 % (42-76); Platelet Estimate Normal; RBC Morphology Normal; Total Cells Counted 100
== END ==
PROVIDERS: PCP Nurse Practitioner Family; Visit Provider Nurse Practitioner Family
DX: Z00.00 Encounter for general adult medical examination without abnormal findings (principal); Z13.1 Encounter for screening for diabetes mellitus
CPT/HCPCS: 80053; 80061; 81001; 83036; 84443; 85007; 85014; 85018; 85048; 85049

== ENCOUNTER → 2022-04-04 12:51 | Outpatient (CLI) | payer OTHER, SELFPAY ==
--- NOTE | 2022-04-04 13:00 | CA_ITS ---
APPROVED REPORT EXAM: Comprehensive 2D, Doppler, and color-flow Echocardiogram Reservoir Engineer: Emelina Carvajal CRT Ht: 5 ft 1 in Wt: 167lbs BSA: 1.75 BP: 120/78 mmHg Indications: Migraines bubble study, cp Echo Enhancing Agent Indication: Rule out Shunt Agent(s) / Amount(s) Used: Agitated Saline 5 cc Comments: B/S appears positive 2D Dimensions LVOT 1.85 cm (M/F) 1.5-2.5 LA Volume 27.60 mL LA Volume Index 15.40 mL/m2 (M/F) 16-34 M-Mode Dimensions RVDd 2.97 cm (0.9-2.6) LA Diam 3.45 cm (1.9-4.0) LVDd 4.41 cm (3.5-5.7) Ao Diam 3.33 cm (2.0-3.7) LVDs 3.22 cm (3.5-5.7) IVSd 0.59 cm (0.6-1.1) PWd 0.41 cm (0.6-1.1) EF (Teich) 52.80% FS 27.00% EDV (Teich) 88.20 mL TAPSE 2.67 (<1.7) ESV (Teich) 41.60 mL LV Diastology E Decel Time 163.00 (160-240 msec) E/A Ratio 0.82 MED E' 10.80 (< 7 cm/sec) MED A' 15.80 cm/s E'/MED E' Ratio 6.71 (>14) LAT E' 13.60 (<10 cm/sec) LAT A' 15.00 cm/s E/LAT E' Ratio 5.33 (>14) Aortic Valve AO Peak GR. 9.90 mmHg Mitral Valve MV E Max Won. 73.00 (40-130 cm/s) MV A Velocity 88.00 (40-130 cm/s) E/A Ratio 0.82 MV Decel. Time 163.00 (160-240 ms) MV PHT 48.00 ms Pulmonary Valve PV Peak Velocity 118.00 (50-150 cm/s) Tricuspid Valve TR P. Velocity 152.00 cm/s RAP Estimate 10.00 mmHg RVSP 19.20 mmHg Left Ventricle Left atrium is normal size, left ventricle is normal size, estimated ejection fraction 55% with no regional wall motion abnormality, diastolic parameters are within normal range. Right Ventricle Right atrium and right ventricle are normal size and contractility. Atria Intra-atrial septum is intact, agitated saline contrast study with provocative measures identifies right to left shunt likely small patent foramen ovale. Aortic Valve Aortic valve is grossly normal, there is no aortic stenosis or aortic insufficiency. Mitral Valve Mitral valve grossly normal, there is trace mitral regurgitation. Tricuspid Valve Tricuspid grossly normal, there is trace tricuspid regurgitation. Tricuspid regurgitation jet velocity is inadequate for calculation of the right ventricular systolic pressure. Pulmonic Valve Pulmonic valve is poorly visualized. Great Vessels Aortic root is normal size. Inferior vena cava is normal size with normal inspiratory collapse. Pericardium No significant pericardial effusion noted. Conclusion 1. Normal left ventricular size preserved left ventricular systolic function, estimated ejection fraction 55% with no regional wall motion abnormality, diastolic parameters are within normal range. 2. Likely small patent foramen ovale with [id number] shunt. 3. Trace mitral and tricuspid regurgitation. 4. No significant pericardial effusion noted. 5. Inferior vena cava is normal 7 normal inspiratory collapse. Electronically signed by : Rafa Eduardo MD 04/04/2022 16:41:12
== END ==
PROVIDERS: PCP Nurse Practitioner Family; Visit Provider Nurse Practitioner Family
DX: R07.9 Chest pain, unspecified (principal)
CPT/HCPCS: 93306

== ENCOUNTER → 2022-04-08 21:13 | Outpatient (CLI) | payer OTHER, SELFPAY | LOC: LAB 04-11 00:36 → LAB.DROPOF 04-16 08:14 | PROVIDERS: PCP Student in an Organized Health Care Education/Training Program; Visit Provider Student in an Organized Health Care Education/Training Program | DX: J32.9 Chronic sinusitis, unspecified (principal) | CPT/HCPCS: 87070 ==

== ENCOUNTER → 2022-04-14 12:46 | Outpatient (CLI) | payer OTHER, SELFPAY ==
--- NOTE | 2022-04-14 12:46 | MM_ITS ---
PROCEDURE INFORMATION: Exam: MG Bilateral Screening 3D Mammography Exam date and time: 04/14/2022 12:56 PM Age: 41 years old Clinical indication: Screening mammogram TECHNIQUE: Imaging protocol: Bilateral Screening tomosynthesis and 2D mammography including computer-aided detection (CAD) when performed. COMPARISON: 1. MG MAMMO SCREENING DIGITAL TOMOSYNTHESIS BILATERAL W CAD 12/26/2019 2:33 PM 2. US BREAST LEFT LIMITED 01/06/2020 8:12 AM FINDINGS: MAMMOGRAPHY: Breast composition: The breast is heterogeneously dense, which may obscure small masses. Mass: None. Architectural distortion: No new or suspicious architectural distortion. Calcifications: No new or suspicious calcifications are present Asymmetric density: No new or suspicious asymmetric density is present Skin thickening: None. Axillary adenopathy: None. IMPRESSION: No mammographic evidence of malignancy. Recommend annual screening mammography unless otherwise clinically indicated. ASSESSMENT: BI-RADS category 1: Negative
== END ==
PROVIDERS: PCP Student in an Organized Health Care Education/Training Program; Visit Provider Nurse Practitioner Family
DX: Z12.31 Encounter for screening mammogram for malignant neoplasm of breast (principal)
CPT/HCPCS: 77063; 77067

== ENCOUNTER → 2022-04-21 13:16 | Outpatient (CLI) | payer OTHER, SELFPAY ==
--- NOTE | 2022-04-21 13:17 | CT_ITS ---
FINAL REPORT CLINICAL HISTORY: migraines/pfo FINDINGS: Axial images of the head were obtained without and with contrast. Coronal reformatted images were also obtained. This study was performed with techniques to keep radiation doses as low as reasonably achievable (ALARA). Individualized dose reduction techniques using automated exposure control or adjustment of mA and/or kV according to the patient's size were employed. There is no evidence of intracranial hemorrhage or mass. There is no evidence of acute infarct. There is no evidence of shift of the midline structures. No skull abnormality is seen on the bone window images. No abnormal contrast enhancement is seen. IMPRESSION: No acute intracranial abnormality identified. Reviewed, Interpreted and Dictated by Charles Mcdonald III, MD Transcribed by Earle Henning Authenticated and . [facility]
== END ==
PROVIDERS: PCP Nurse Practitioner Family; Visit Provider Physician Assistant
DX: G43.909 Migraine, unspecified, not intractable, without status migrainosus (principal); Q21.12 Patent foramen ovale; R00.0 Tachycardia, unspecified; R07.9 Chest pain, unspecified
CPT/HCPCS: 70470; Q9966

== ENCOUNTER → 2022-04-24 07:44 | Outpatient (CLI) | payer OTHER, SELFPAY ==
--- NOTE | 2022-04-24 | CA_ITS ---
APPROVED REPORT Exam: Exercise Treadmill Technologist: Ariana Juarez, Ht: 5 ft 1 in Wt: 166 lbs BSA: 1.74 m2 HR: 73 bpm BP: 149/83 mmHg Rhythm: NSR Medical History Medications: Prednisone,,,,, RImegapant,,,,, Allergies: No known drug allergies Stress Test Details Test: Harry HR Resting HR: 93 bpm Max Heart Rate (APMHR): 177.785990 bpm Max HR Achieved: 174 bpm Target HR (85% APMHR): 150.217671 bpm % of APMHR: 98.31 BP Resting BP: 149/83 mmHg Max BP: 156/82 mmHg ECG Clinical Reason for Termination: Dyspnea Exercise duration: 09:06 min Highest Stage Achieved: Exercise capacity: 10.1 METs Stress ECG Conclusion EXERCISED 9 MINUTES ON HARRY PROTOCOL WITH A METS OF 10.1. MAX HEART RATE 172 BPM WHICH IS 115% OF PM FOR AGE. TEST STOPPED DUE TO DYSPNEA. NO CHEST PAIN. NO ARRHYTHMIAS/ECTOPY. <1.5MM ST SEGMENT CHANGES. NEGATIVE STRESS. SEE ECHO Test Summary REST . . . . . . . Standing REST . . . . . . . Sitting REST 09:21 0.0 0.0 93 . 149/ 83 . . Stage 1 01:00 10.0 1.7 112 . . . . Stage 1 02:00 10.0 1.7 121 . . . . Stage 1 03:00 10.0 1.7 128 . 152/ 82 . . Stage 2 01:00 12.0 2.5 140 . . . . Stage 2 02:00 12.0 2.5 146 . . . . Stage 2 03:00 12.0 2.5 151 . 156/ 82 . . Stage 3 01:00 14.0 3.4 164 . . . . Stage 3 02:00 14.0 3.4 168 . . . . Stage 3 03:00 14.0 3.4 171 . . . . Stage 4 00:06 16.0 4.2 172 . . . Stop exercise at 09:06 RECOVERY 01:00 0.0 0.0 139 . . . . RECOVERY 02:00 0.0 0.0 121 . . . . RECOVERY 03:00 0.0 0.0 113 . . . . RECOVERY 04:00 0.0 0.0 115 . 145/ 86 . . RECOVERY 04:45 0.0 0.0 109 . 130/ 81 . . Electronically signed by : Rafa Eduardo MD 04/25/2022 12:58:11
--- NOTE | 2022-04-24 07:48 | CA_ITS ---
APPROVED REPORT EXAM: Comprehensive 2D, Doppler, and color-flow Echocardiogram Casing Running Machine Tender: Briana Pena RVT Ht: 5 ft 1 in Wt: 165lbs BSA: 1.74 BP: 126/88 mmHg Indications: CP,PFO,TACHYCARDIA Stress Test Details HR Max Heart Rate (APMHR): 177.874555 bpm Target HR (85% APMHR): 150.732536 bpm BP ECG Conclusion 1. Patient exercised on Harry protocol achieved 10.1 METs of workload on treadmill with no chest pain, EKG was negative for ischemia. 2. The resting echocardiogram showed normal left ventricular size and function with no regional wall motion abnormality, with exercise there is increase in contractility of all the segments of the myocardium with hyperdynamic left ventricular systolic response, no obvious regional wall motion abnormality to suggest underlying ischemic heart disease. 3. Normal exercise stress echo, normal ejection fraction. Electronically signed by : Rafa Eduardo MD 04/25/2022 13:00:10
== END ==
PROVIDERS: PCP Nurse Practitioner Family; Visit Provider Physician Assistant
DX: R07.9 Chest pain, unspecified (principal); R00.0 Tachycardia, unspecified; Q21.12 Patent foramen ovale; G43.909 Migraine, unspecified, not intractable, without status migrainosus
CPT/HCPCS: 93017; 93350

== ENCOUNTER 2022-05-29 15:00 | Outpatient (RCR) | payer OTHER, SELFPAY ==
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
== END 2022-05-29 15:05 | disposition home or self-care (01) ==
LOC: PT 15:00
PROVIDERS: PCP Nurse Practitioner Family; Visit Provider Specialist
DX: G43.909 Migraine, unspecified, not intractable, without status migrainosus (principal); G44.86 Cervicogenic headache
CPT/HCPCS: 97010; 97014; 97110; 97163; G0283

== ENCOUNTER → 2022-08-29 14:30 | Outpatient (CLI) | payer OTHER, SELFPAY ==
[2022-08-29 15:43] LABS: 25-OH Vitamin D, Total 31.9 ng/mL (30-100)
[2022-08-29 16:16] LABS: Vitamin B12 805 pg/mL (239-931)
== END ==
PROVIDERS: PCP Nurse Practitioner Family; Visit Provider Nurse Practitioner Family
DX: R53.83 Other fatigue (principal); E66.3 Overweight; Z68.29 Body mass index [BMI] 29.0-29.9, adult
CPT/HCPCS: 36415; 82306; 82607

== ENCOUNTER 2023-05-11 17:17 | Emergency (ER) | payer BC, SELFPAY ==
[2023-05-11 18:05] VITALS: BP 134/87; PULSE 86; RESP 18; TEMP 37.1; O2SAT 98; BMI 31.5
[2023-05-11 18:12] VITALS: BP 134/87; PULSE 86; RESP 18; TEMP 37.1; O2SAT 98
--- NOTE | 2023-05-11 18:27 | EXP.UTC ---
Discharge Plan Disposition Patient Disposition: Home, Self-Care Condition: Good Prescriptions Prescriptions: New methylprednisolone [Medrol (Christian)] 4 mg tablets,dose pack See Rx Instructions .Route .COMPLEX 6 Days Qty: 21 0RF Rx Instructions: taper pack; amoxicillin-pot clavulanate 875-125 mg Tablet 1 tab PO Q12H Qty: 20 0RF No Action Qulipta 10 mg tablet 10 mg PO DAILY citalopram [Celexa] 10 mg tablet 10 mg PO DAILY Qty: 30 2RF Ubrelvy 50 mg tablet 50 mg PO ONCE PRN (Reason: migraine ) Qty: 30 2RF Rx Instructions: If needed, may take a second dose at least 2 hours after initial dose. MDD 200mg/24hr. Ozempic 0.25 mg or 0.5 mg (2 mg/3 mL) Pen Injector 0.25 mg SQ WEEKLY Rx Instructions: for 4 weeks Referrals Follow up/Referrals: Glendy Brar APRN [Primary Care Provider] - See instructions Activity Restrictions/Add. Instructions Additional Instructions/Restrictions: *Monitor Temp, Over the counter Motrin or Tylenol as directed/as needed Tylenol every 4 hours and Motrin every 6 hours (as long as your family doctor has told you that you can take it) for fever or pain. and straight to ER if unable to lower temp less than 101.0 after medication given *Warm salt water gargles may help to soothe the throat *Throat Lozenges? *Warm fluids like tea with honey may help to soothe the throat? *Sleep elevated *Humidifier/Vaporizer Take medication as prescribed Follow up IMMEDIATELY for new or worsening symptoms or no Noticeable improvement over the next 48-72 hours. 911 for difficulty breathing or swallowing Clinical Impressions Clinical Impression: Sinusitis Instructions Patient Instructions: DI for Sinusitis, Sinusitis Discharge ED Provider: Amber Rose [facility] [place] HPI General Stated complaint: Head congestion Mode of Arrival: Ambulatory Source of Information: Patient Limitations: No Limitations Time Seen by Provider: 05/11/23 18:27 Description of Symptoms (Recalled from Triage Doc. by RN): PATIENT C/O SINUS PRESSURE AND CONGESTION SINCE YESTERDAY HEENT Symptoms (Recalled from RN notes): Yes Resp Symptoms (Recalled from RN notes): No Skin Symptoms (Recalled from RN notes): No MS Symptoms (Recalled from RN notes): No Functional Status (Recalled from RN notes): WNL History of Present Illness Provider Complaint: Patient states that she has been having sinus congestion and drainage in the back of her throat for several days but got worse yesterday States that she is having pain and pressure in her sinuses and behind her eyes and drainage in the back of her throat making her throat feel achy and scratchy Related Data Home Medications Medication Instructions Recorded Confirmed atogepant 10 mg tablet (Qulipta) 10 mg PO DAILY 03/23/23 05/11/23 semaglutide 0.25 mg or 0.5 mg (2 0.25 mg SQ WEEKLY 05/11/23 05/11/23 mg/3 mL) subcutaneous pen injector (Ozempic) Previous Rx's Medication Instructions Recorded citalopram 10 mg tablet (Celexa) 10 mg PO DAILY #30 tabs 03/23/23 ubrogepant 50 mg tablet (Ubrelvy) 50 mg PO ONCE PRN migraine 04/03/23 #30 tabs amoxicillin 875 mg-potassium 1 tab PO Q12H #20 tabs 05/11/23 clavulanate 125 mg tablet methylprednisolone 4 mg tablets in See Rx Instructions .Route 05/11/23 a dose pack (Medrol (Christian)) .COMPLEX 6 days #21 tabs Allergies Allergy/AdvReac Type Severity Reaction Status Date / Time No Known Allergies Allergy Verified 05/07/23 11:34 Worker's Comp Is this a Worker's Comp case?: No PFSH PFS Disclaimer: The information contained in this section may have been updated after the patient was seen, as this information can be updated by other users. Medical History Gallstones BMI 29.0-29.9,adult Sinusitis Body mass index (BMI) of 30.0 to 30.9 in adult Cervicogenic headache Migraine Sinus tachycardia PFO (patent foramen ovale) Chest pain Establishing care with new doctor, encounter for BMI 31.0-31.9,adult Chest pain at rest Diabetes Asthma Migraine Anxiety and depression SIRS (systemic inflammatory response syndrome) Ovarian cyst Vertigo Sinusitis Abdominal pain Sciatica Surgical History H/O tubal ligation 01/25/2011 Family History Father Cancer lung Diabetes Mother Hypertension FHx: mental illness COPD (chronic obstructive pulmonary disease) Social History Smoking Status: Never smoker alcohol intake: current substance use type: denies use current occupational status: employed Travel in the last 8 weeks: None household members: spouse and children housing: house marital status: number of children: 3 current occupation: [employer] ROS Obtained: Yes All systems reviewed & no additional complaints except as documented and Yes Systems reviewed as appropriate & no additional complaints except as documented Constitutional Constitutional: Reports system reviewed and no additional complaints, except as documented, Reports as per HPI and Reports headache(s) ENT Ears, Nose, Mouth, and Throat: Reports system reviewed and no additional complaints, except as documented, Reports as per HPI, Reports headache(s), Reports sinus pain, Reports sinus pressure and Reports sore throat Cardiovascular Cardiovascular: Reports system reviewed and no additional complaints, except as documented and Reports as per HPI Respiratory Respiratory: Reports system reviewed and no additional complaints, except as documented and Reports as per HPI Gastrointestinal Gastrointestingal: Reports system reviewed and no additional complaints, except as documented and as per HPI Neurologic Neurologic: Reports headache(s) Physical Exam General General appearance: alert and in no apparent distress ENT ENT exam: Present mucous membranes moist Expanded ENT Exam Nose exam: Present sinus tenderness Throat exam: Present other (Pharyngeal erythema noted with PND) Respiratory Respiratory exam: Present normal lung sounds bilaterally; Absent respiratory distress or wheezes Cardiovascular Cardiovascular exam: Present regular rate, normal rhythm and normal heart sounds Abdominal Exam Abdominal exam: Present soft and normal bowel sounds; Absent distention or tenderness Neurological Exam Neurological exam: Present alert, oriented X3 and normal gait Medical Decision Making Bravo Inquiry Pt receiving controlled substance: No Bravo was queried for this patient: No Vital Signs: 05/11/23 18:05 05/11/23 18:12 Temperature 98.7 F 98.7 F Temperature Source Oral Pulse Rate 86 Pulse Rate [Left Brachial] 86 Respiratory Rate 18 18 Blood Pressure 134/87 Blood Pressure [Left Arm] 134/87 Blood Pressure Mean [Left Arm] 102 Blood Pressure Source [Left Arm] Automatic Cuff Blood Pressure Position [Left Arm] Sitting 02 Sat by Pulse Oximetry 98 Oxygen Delivery Method Room Air Medical Decision Narrative: Patient states that she has taken Medrol in the past without complications or reactions
== END 2023-05-11 18:37 | disposition home or self-care (01) ==
PROVIDERS: Emergency Provider Nurse Practitioner; PCP Nurse Practitioner Family
DX: J01.90 Acute sinusitis, unspecified (principal); E11.9 Type 2 diabetes mellitus without complications; J45.909 Unspecified asthma, uncomplicated; F41.9 Anxiety disorder, unspecified; F32.A Depression, unspecified
CPT/HCPCS: 99212; 99214; G0463

== ENCOUNTER 2023-08-21 17:42 | Outpatient (CLI) | payer BC, SELFPAY ==
[2023-08-21 18:34] LABS: Basophils # 0.1 K/mm3 (0-0.2); Basophils % 0.6 % (0.1-2.0); Eosinophils # 0.1 K/mm3 (0.0-0.4); Eosinophils % 1.2 % (0.1-12.0); Hematocrit 43.4 % (37.0-47.0); Hemoglobin 13.9 g/dL (12.2-16.2); Lymphocytes # 1.5 K/mm3 (0.7-4.5); Lymphocytes % 20.4 % (10-50); Mean Corpuscular HGB Conc 32.1 g/dL (31.8-35.4); Mean Corpuscular Hemoglobin 30.8 pg (27.0-31.2); Mean Corpuscular Volume 95.9 fl (81-99); Mean Platelet Volume 9.5 fl (7.4-10.4); Monocytes # 0.5 K/mm3 (0.1-1.0); Monocytes % 6.8 % (1.7-9.3); Neutrophils # 5.3 K/mm3 (1.8-7.8); Platelet Count 301 K/mm3 (142-424); Red Blood Count 4.53 M/mm3 (4.20-5.40); White Blood Count 7.5 K/mm3 (4.8-10.8)
[2023-08-21 18:54] LABS: Chloride 104 mmol/L (98-107); Potassium 4.3 mmoL/L (3.5-5.1); Sodium 140 mmol/L (136-145)
[2023-08-21 18:55] LABS: Hemoglobin A1C 4.9 % (4.0-6.0)
[2023-08-21 18:56] LABS: Alanine Aminotransferase 16 U/L (12-78); Alkaline Phosphatase 106 U/L (38-126); Anion Gap 10.3 mEq/L (5-15); Aspartate Amino Transferase 27 U/L (14-36); Bilirubin,Total 0.5 mg/dl (0.2-1.3); Blood Urea Nitrogen 10 mg/dl (7-17); Carbon Dioxide 30 mmol/L (22.0-30.0); Estimated Glomerular Filt Rate 109 ml/min (>60); GFR (African American) 131 ML/MIN (>60)
[2023-08-21 18:57] LABS: Albumin/Globulin Ratio 1.5 (1.1-1.8); Calcium 9.6 mg/dl (8.4-10.2); Chol/HDL Ratio 3.2 (1-3.5); Cholesterol 154 mg/dl (140-200); Globulin 2.6 g/dL (1.3-3.2); Glucose 65 mg/dl (74-100); HDL Cholesterol 48 mg/dl (40-60); Total Protein,Serum 6.6 g/dl (6.3-8.2); Triglycerides 114 mg/dl (30-150); VLDL Cholesterol 23 mg/dL (0-40)
[2023-08-21 19:08] LABS: Direct LDL Cholesterol 79.42 mg/dL (100-129)
[2023-08-21 19:15] LABS: 25-OH Vitamin D, Total 34.2 ng/mL (30-100)
[2023-08-21 19:16] LABS: Free T4 (Free Thyroxine) 0.91 ng/dl (0.78-2.19)
[2023-08-21 19:29] LABS: Thyroid Stimulating Hormone 1.11 uIU/mL (0.465-4.68)
[2023-08-21 19:53] LABS: Iron 155 ug/dL (37-170); Total Iron Binding Capacity 292 ug/dL (265-497)
[2023-08-21 20:31] LABS: Vitamin B12 669 pg/mL (239-931)
[2023-08-21 20:34] LABS: Ferritin 18.4 ng/ml (6.24-137)
== END 2023-08-21 23:59 | disposition home or self-care (01) ==
LOC: LAB.DROPOF 17:46
PROVIDERS: PCP Nurse Practitioner Family; Visit Provider Nurse Practitioner Family
DX: Z13.220 Encounter for screening for lipoid disorders (principal); G43.109 Migraine with aura, not intractable, without status migrainosus; R53.83 Other fatigue; Z13.1 Encounter for screening for diabetes mellitus; E66.9 Obesity, unspecified; Z68.31 Body mass index [BMI] 31.0-31.9, adult
CPT/HCPCS: 80050; 80053; 80061; 82306; 82607; 82728; 83036; 83540; 83550; 84439; 84443; 85025

== ENCOUNTER 2023-09-17 16:39 | Emergency (ER) | payer BC, SELFPAY ==
[2023-09-17 16:50] VITALS: BP 117/62; PULSE 63; RESP 19; TEMP 37; O2SAT 99; BMI 29.6
--- NOTE | 2023-09-17 16:59 | EXP.UTC ---
Discharge Plan Disposition Patient Disposition: Home, Self-Care Condition: Good Prescriptions Prescriptions: New ondansetron 4 mg Tablet,Disintegrating 4 mg PO Q8H PRN (Reason: Nausea) Qty: 12 0RF No Action propranolol 40 mg tablet 40 mg PO DAILY Patient Comments: TAKE ONE TABLET BY MOUTH TWICE DAILY sertraline 50 mg tablet 50 mg PO DAILY Patient Comments: TAKE ONE TABLET BY MOUTH EVERY DAY Qulipta 10 mg tablet 10 mg PO DAILY Patient Comments: TAKE 1 TABLET BY MOUTH ONCE DAILY Referrals Follow up/Referrals: Glendy Brar APRN [Primary Care Provider] - See instructions Activity Restrictions/Add. Instructions Additional Instructions/Restrictions: Drink plenty of fluids. Take tylenol or ibuprofen for pain or fever. Take the zofran as directed if you have nausea. Follow up with your regular doctor. GO TO THE ER FOR ANY WORSENING SYMPTOMS Clinical Impressions Clinical Impression: Acute viral syndrome Stand Alone Forms Stand Alone Forms: Work/School Release Instructions Patient Instructions: DI for Viral Syndrome Discharge ED Provider: Simone Fournier [facility] General Stated complaint: sore throat, GARCIA, body aches Time Seen by Provider: 09/17/23 16:58 Related Data Home Medications Medication Instructions Recorded Confirmed atogepant 10 mg tablet (Qulipta) 10 mg PO DAILY 09/17/23 09/17/23 propranolol 40 mg tablet 40 mg PO DAILY 09/17/23 09/17/23 sertraline 50 mg tablet 50 mg PO DAILY 09/17/23 09/17/23 Previous Rx's Medication Instructions Recorded ondansetron 4 mg disintegrating 4 mg PO Q8H PRN Nausea #12 tabs 09/17/23 tablet Allergies Allergy/AdvReac Type Severity Reaction Status Date / Time No Known Allergies Allergy Verified 09/09/23 13:15 [facility] Disclaimer: The information contained in this section may have been updated after the patient was seen, as this information can be updated by other users. Medical History Sinusitis Gallstones BMI 29.0-29.9,adult Sinusitis Body mass index (BMI) of 30.0 to 30.9 in adult Cervicogenic headache Migraine Sinus tachycardia PFO (patent foramen ovale) Chest pain Establishing care with new doctor, encounter for BMI 31.0-31.9,adult Chest pain at rest Diabetes Asthma Migraine Anxiety and depression SIRS (systemic inflammatory response syndrome) Ovarian cyst Vertigo Sinusitis Abdominal pain Sciatica Surgical History H/O tubal ligation 01/25/2011 Family History Father Cancer lung Diabetes Mother Hypertension FHx: mental illness COPD (chronic obstructive pulmonary disease) Social History Smoking Status: Never smoker alcohol intake: current alcohol intake frequency: holidays/special occasions only substance use type: denies use current occupational status: employed Travel in the last 8 weeks: None household members: spouse and children housing: house marital status: number of children: 3 current occupation: [employer] ROS Obtained: Yes All systems reviewed & no additional complaints except as documented Constitutional Constitutional: Reports chills and Reports fever(s) Eyes Eyes: Denies eye discharge ENT Ears, Nose, Mouth, and Throat: Reports as per HPI Cardiovascular Cardiovascular: Denies chest pain Respiratory Respiratory: Denies chest congestion and Reports cough Gastrointestinal Gastrointestingal: Reports nausea; Denies abdominal pain, constipation, cramping, diarrhea or vomiting Musculoskeletal Musculoskeletal: Denies arthralgias Integumentary/Breasts Skin/Breast: Denies rash Neurologic Neurologic: Denies paresthesias Physical Exam General General appearance: alert and in no apparent distress Head Head exam: atraumatic, normocephalic and normal inspection Eye Eye exam: Present normal appearance, PERRL and EOMI ENT ENT exam: Present normal exam, normal oropharynx, mucous membranes moist, TM's normal bilaterally and normal external ear exam Neck Neck exam: Present normal inspection, full ROM and trachea midline; Absent meningismus or lymphadenopathy Chest Chest inspection: Present normal inspection and symmetric chest wall rise; Absent tenderness Respiratory Respiratory exam: Present normal lung sounds bilaterally; Absent respiratory distress Cardiovascular Cardiovascular exam: Present regular rate and normal rhythm; Absent JVD Abdominal Exam Abdominal exam: Present soft and normal bowel sounds; Absent distention, tenderness or guarding Extremities Exam Extremities exam: Present normal inspection, full ROM and normal capillary refill; Absent calf tenderness Back Exam Back exam: Present normal inspection; Absent tenderness Neurological Exam Neurological exam: Present alert and oriented X3 Psychiatric Psychiatric exam: Present normal affect and normal mood Skin Skin exam: Present warm, dry, intact and normal color Lymphatic Lymphatic Findings: no adenopathy Medical Decision Making Medical Records Medical records reviewed: No I reviewed the patient's medical records. Bravo Inquiry Pt receiving controlled substance: No
[2023-09-17 17:11] LABS: UTC Strep Screen (Rapid) Negative (Negative)
[2023-09-17 17:30] VITALS: BP 117/62; PULSE 63; RESP 19; TEMP 37; O2SAT 99
== END 2023-09-17 17:34 | disposition home or self-care (01) ==
PROVIDERS: Emergency Provider Nurse Practitioner Family; PCP Nurse Practitioner Family
DX: R51.9 Headache, unspecified (principal); R07.0 Pain in throat; B34.9 Viral infection, unspecified
CPT/HCPCS: 87635; 87880; 99212; 99214; G0463

== ENCOUNTER 2023-10-15 06:04 | Day surgery (SDC) | payer BC, SELFPAY ==
[2023-10-13 15:25] VITALS: BMI 29.8
[2023-10-15] VITALS (11 sets, daily range): BP systolic 115–146; BP diastolic 71–86; PULSE 62–88; RESP 14–18; TEMP 36.2–43; O2SAT 95–100
[2023-10-15] MEDS: LACTATED RINGERS 1000ML 1,000 ML 25 ML IV (06:22)
[2023-10-15 06:31] LABS: Urine Pregnancy, HCG Qual. Negative (Negative)
--- NOTE | 2023-10-15 07:06 | P.PNANES_ITS ---
[facility] Disclaimer: The information contained in this section may have been updated after the patient was seen, as this information can be updated by other users. Medical History Sinusitis Gallstones BMI 29.0-29.9,adult Sinusitis Body mass index (BMI) of 30.0 to 30.9 in adult Cervicogenic headache Migraine Sinus tachycardia PFO (patent foramen ovale) Chest pain Establishing care with new doctor, encounter for BMI 31.0-31.9,adult Chest pain at rest Diabetes Asthma Migraine Anxiety and depression SIRS (systemic inflammatory response syndrome) Ovarian cyst Vertigo Sinusitis Abdominal pain Sciatica Surgical History H/O tubal ligation 01/25/2011 Family History Father Cancer lung Diabetes Mother Hypertension FHx: mental illness COPD (chronic obstructive pulmonary disease) Social History Smoking Status: Never smoker alcohol intake: never substance use type: denies use current occupational status: employed Travel in the last 8 weeks: None household members: spouse and children housing: house marital status: number of children: 3 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 Anesthesia Checklist Patient Identification Patient Identification: Arm Band and Family Structural Data Admitted From: Home Planned Operative Procedure/s: Laparoscopic Cholecystectomy Consent for Planned Operative Procedure(s) Verified: Yes Verified Documents: Surgical Consent and History and Physical NPO Status Verified Time NPO: 00:00 Additional verifications Anesthesia Reactions: No Hx Blood Transfusions: No Blood Transfusion Reaction: No Airway Assessment Mallampati Score:: Class II C-Spine Mobility Assessed: Yes TMJ Mobility Assessed: Yes Dentition: Good Dentition Neurological Assessment Level of Consciousness: Awake, Alert and Appropriate Anesthesia Plan Anesthesia Risk discussed: Yes Anesthesia Plan: Verified ASA Class: II Anesthesia Type: General
--- NOTE | 2023-10-15 07:16 | P.OP_ITS ---
Date of procedure: 10/15/23 Pre-op Diagnosis:: Chronic calculus cholecystitis Post-op Diagnosis:: Same Procedure performed:: Laparoscopic cholecystectomy Surgeon:: Wilberto Morley MD Anesthesia: GETAftab Estimated blood loss (mL): 15 Operative findings:: Significant pericholecystic fat stranding Infundibular thickening Operative note:: After informed consent was obtained, the patient was taken to the operating room and placed in the supine position. General anesthesia was induced and the abdomen was prepped and draped in a sterile fashion. After infiltration with local anesthetic an infraumbilical incision was made. A Veress needle was p laced in position. The abdomen was insufflated. A 5 mm optical trocar was placed in position. Under direct visualization, a 12 mm trocar was placed in the subxiphoid position and 2 additional 5 mm trocars were placed in the right upper quadrant. The gallbladder was elevated up and over the liver margin. The tissue around the cystic duct was carefully dissected. 3 clips were placed proximally and the duct was transected with harmonic harley. Harmonic harley were then utilized to dissect the gallbladder away from the liver margin with careful attention to the control of the cystic artery. The gallbladder was placed in a retrieval bag and removed through the subxiphoid trocar site. The right upper quadrant was thoroughly irrigated. No active bleeding or bile leak was noted. Fascia at the subxiphoid trocar site was reapproximated utilizing the NeoClose device. The remaining trocars were removed. All wounds were irrigated and skin was closed with 4-0 Monocryl in a subcuticular fashion. Steri-Strips were applied. The patient's anesthetic agents were reversed and extubation was completed prior to transfer to recovery in stable condition. Condition: stable Disposition: PACU Specimens:: Gallbladder and contents Complications:: No immediate
[2023-10-15] MEDS: CEFAZOLIN SODIUM 1GM ADV 1 GM IV (07:30)
[2023-10-15] MEDS: 0.9 % SODIUM CHLORIDE 50 ML 100 ML IV (07:30)
[2023-10-15] MEDS: SODIUM CHLORIDE IRRIG SOLUTION 3,000 ML 25 ML IR (08:02)
[2023-10-15] MEDS: LIDOCAINE 1% 20ML MDV 20 ML (08:02)
--- NOTE | 2023-10-15 09:06 | P.PNANES_ITS ---
[facility] Anesthesia Record Part I Anesthesia Record I Intake, IV Amount: 850 Hydration: Adequate Estimated blood loss (mL): 15 Urine output (mL): 0 Blood Products used (#): none Blood Pressure: 146/77 SaO2: 97 Pulse Rate: 85 Airway Patency: Patent Respiratory Rate: 14 Temperature: 97.2 F Patient is:: Awake and Stable Stable to PACU at:: 09:05
[2023-10-15 09:11] LABS: POC Glucose,Bedside 127 (70-110)
--- NOTE | 2023-10-15 11:17 | EXP.ANES.II ---
[facility] Anesthesia Record Part II Anesthesia Record Part II Discharge Time: 09:30 Destination: Surgical Day Care (OP Surgery) PACU nurse assessment reviewed?: Yes Patient Condition:: Good Anesthesia Complications:: None Swallowing reflex intact?: Yes Airway Patency: Patent Cyanosis?: No Blood Pressure: 124/77 SaO2: 98 Respiratory Rate: 16 Pulse Rate: 67 Temperature: 98 F Mental Status: Alert & Oriented Pain level:: 0 Nausea and/or vomitting:: None Intake, IV Amount: 850 Hydration: Adequate
[2023-10-15 11:42] LABS: POC Glucose,Bedside 112 (70-110)
== END 2023-10-15 10:05 | disposition home or self-care (01) ==
PROVIDERS: PCP Nurse Practitioner Family; Visit Provider Surgery
PROC: 0FT44ZZ Resection of Gallbladder, Percutaneous Endoscopic Approach (ICD-10-PCS; CPT 47562; principal; 2023-10-15 07:30)
DX: R10.13 Epigastric pain (principal); K80.10 Calculus of gallbladder with chronic cholecystitis without obstruction
CPT/HCPCS: 47562; 81025; 82962; 96374; J3490; J0690; J1100; J1885; J2250; J2405; J3010; J7120

== ENCOUNTER 2023-11-03 16:37 | Emergency (ER) | payer BC, SELFPAY ==
[2023-11-03 18:05] VITALS: BP 135/74; PULSE 86; RESP 19; TEMP 36.8; O2SAT 98; BMI 29.9
--- NOTE | 2023-11-03 18:08 | EXP.UTC ---
Discharge Plan Disposition Patient Disposition: Home, Self-Care Condition: Good Prescriptions Prescriptions: New azithromycin [Zithromax] 250 mg tablet 250 mg PO UD DOSE PK Qty: 6 0RF Rx Instructions: Take two (2) tablets today, then one (1) tablet days #2 thru #5 benzonatate 100 mg capsule 100 mg PO TIDP PRN (Reason: Cough) Qty: 30 0RF methylprednisolone 4 mg Tablets,Dose Pack 4 mg PO DIRECTED 6 Days Qty: 21 0RF Rx Instructions: Take 1 pack as directed for 6 days No Action triamcinolone acetonide 0.1 % cream 1 applic topical BID Qty: 15 0RF Qulipta 10 mg tablet 10 mg PO DAILY Qty: 90 2RF Ubrelvy 50 mg tablet 50 mg PO ONCE PRN (Reason: migraine ) Qty: 30 2RF Rx Instructions: If needed, may take a second dose at least 2 hours after initial dose. MDD 200mg/24hr. propranolol 40 mg tablet 40 mg PO DAILY Patient Comments: TAKE ONE TABLET BY MOUTH TWICE DAILY sertraline [Zoloft] 50 mg tablet 50 mg PO DAILY Patient Comments: TAKE ONE TABLET BY MOUTH EVERY DAY ondansetron 4 mg Tablet,Disintegrating 4 mg PO Q8H PRN (Reason: Nausea) Qty: 12 0RF hydrocodone-acetaminophen 5-325 mg tablet 1 tab PO Q6H PRN (Reason: post-op pain) Qty: 17 0RF Referrals Follow up/Referrals: Glendy Brar APRN [Primary Care Provider] - See instructions Activity Restrictions/Add. Instructions Additional Instructions/Restrictions: Drink plenty of fluids. Take tylenol or ibuprofen for pain or fever. Take the medications as directed. Follow up with your regular doctor. GO TO THE ER FOR ANY WORSENING SYMPTOMS Clinical Impressions Clinical Impression: Acute bronchitis, Sinusitis Stand Alone Forms Stand Alone Forms: Work/School Release Instructions Patient Instructions: DI for Sinusitis, DI for Acute Bronchitis Print Language Print Language: Persian Discharge ED Provider: Simone Fournier [facility] General Stated complaint: sore htroat, cough Time Seen by Provider: 11/03/23 18:08 Related Data Home Medications ?Medication ?Instructions ?Recorded ?Confirmed propranolol 40 mg tablet 40 mg PO DAILY 09/17/23 10/13/23 sertraline 50 mg tablet (Zoloft) 50 mg PO DAILY 09/17/23 10/13/23 Previous Rx's ?Medication ?Instructions ?Recorded ondansetron 4 mg disintegrating 4 mg PO Q8H PRN Nausea #12 tabs 09/17/23 tablet hydrocodone 5 mg-acetaminophen 325 1 tab PO Q6H PRN post-op pain #17 10/15/23 mg tablet tabs triamcinolone acetonide 0.1 % 1 applic topical BID #15 grams 10/22/23 topical cream atogepant 10 mg tablet (Qulipta) 10 mg PO DAILY #90 tabs 10/26/23 ubrogepant 50 mg tablet (Ubrelvy) 50 mg PO ONCE PRN migraine 10/26/23 #30 tabs azithromycin 250 mg tablet 250 mg PO UD DOSE PK #6 tabs 11/03/23 (Zithromax) benzonatate 100 mg capsule 100 mg PO TIDP PRN Cough #30 caps 11/03/23 methylprednisolone 4 mg tablets in 4 mg PO DIRECTED 6 days #21 tabs 11/03/23 a dose pack Allergies Allergy/AdvReac Type Severity Reaction Status Date / Time No Known Allergies Allergy Verified 10/22/23 08:01 [facility] Disclaimer: The information contained in this section may have been updated after the patient was seen, as this information can be updated by other users. Medical History Sinusitis Gallstones BMI 29.0-29.9,adult Sinusitis Body mass index (BMI) of 30.0 to 30.9 in adult Cervicogenic headache Migraine Sinus tachycardia PFO (patent foramen ovale) Chest pain Establishing care with new doctor, encounter for BMI 31.0-31.9,adult Chest pain at rest Diabetes Asthma Migraine Anxiety and depression SIRS (systemic inflammatory response syndrome) Ovarian cyst Vertigo Sinusitis Abdominal pain Sciatica Surgical History H/O tubal ligation 01/25/2011 Family History Father Cancer lung Diabetes Mother Hypertension FHx: mental illness COPD (chronic obstructive pulmonary disease) Social History Smoking Status: Never smoker alcohol intake: never substance use type: denies use current occupational status: employed Travel in the last 8 weeks: None household members: spouse and children housing: house marital status: number of children: 3 current occupation: [employer] department ROS Obtained: Yes All systems reviewed & no additional complaints except as documented Constitutional Constitutional: Reports chills and Reports fever(s) Eyes Eyes: Denies eye discharge ENT Ears, Nose, Mouth, and Throat: Reports as per HPI Cardiovascular Cardiovascular: Denies chest pain Respiratory Respiratory: Denies chest congestion and Reports cough Gastrointestinal Gastrointestingal: Reports nausea; Denies abdominal pain, constipation, cramping, diarrhea or vomiting Musculoskeletal Musculoskeletal: Denies arthralgias Integumentary/Breasts Skin/Breast: Denies rash Neurologic Neurologic: Denies paresthesias Physical Exam General General appearance: alert and in no apparent distress Head Head exam: atraumatic, normocephalic and normal inspection Eye Eye exam: Present normal appearance, PERRL and EOMI ENT ENT exam: Present mucous membranes moist and normal external ear exam Expanded ENT Exam TM/Canal exam: Bilateral TM: erythema and bulging Nose exam: Absent sinus tenderness Mouth exam: Present normal external inspection; Absent drooling Teeth exam: Present normal inspection Throat exam: Present tonsillar erythema, tonsillomegaly and tonsillar exudate Neck Neck exam: Present normal inspection, full ROM and trachea midline; Absent tenderness, meningismus or lymphadenopathy Chest Chest inspection: Present normal inspection and symmetric chest wall rise; Absent tenderness Respiratory Respiratory exam: Present normal lung sounds bilaterally; Absent respiratory distress, wheezes or stridor Cardiovascular Cardiovascular exam: Present regular rate and normal rhythm; Absent systolic murmur or diastolic murmur Abdominal Exam Abdominal exam: Present soft and normal bowel sounds; Absent distention, tenderness, guarding, rebound or rigidity Extremities Exam Extremities exam: Present normal inspection and normal capillary refill; Absent calf tenderness Back Exam Back exam: Present normal inspection and full ROM; Absent tenderness, CVA tenderness (R) or CVA tenderness (L) Neurological Exam Neurological exam: Present alert, oriented X3 and CN II-XII intact Psychiatric Psychiatric exam: Present normal affect and normal mood Skin Skin exam: Present warm, dry, intact and normal color Medical Decision Making Medical Records Medical records reviewed: No I reviewed the patient's medical records. Bravo Inquiry Pt receiving controlled substance: No Lab Data Lab results reviewed: Yes I reviewed the patient's lab results.
[2023-11-03 18:38] VITALS: BP 135/74; PULSE 86; RESP 19; TEMP 36.8; O2SAT 98
== END 2023-11-03 18:40 | disposition home or self-care (01) ==
PROVIDERS: Emergency Provider Nurse Practitioner Family; PCP Nurse Practitioner Family
DX: J20.9 Acute bronchitis, unspecified (principal); J01.90 Acute sinusitis, unspecified; R07.0 Pain in throat
CPT/HCPCS: 99212; 99214; G0463

== ENCOUNTER 2023-11-09 15:32 | Emergency (ER) | payer BC, SELFPAY ==
[2023-11-09] VITALS (9 sets, daily range): BP systolic 125–165; BP diastolic 74–90; PULSE 53–87; RESP 13–24; TEMP 36.7–37.1; O2SAT 95–100; BMI 29.8
--- NOTE | 2023-11-09 15:31 | ECG_ITS ---
APPROVED REPORT Exam: Resting ECG HR:66 bpm ECG Measurements Heart Rate 66 AXES NE 147 P 58 QRSd 81 QRS 45 QT 401 T 57 QTc 414 Conclusion SINUS RHYTHM POSSIBLE RIGHT VENTRICULAR CONDUCTION DELAY [RSR (QR) IN V1/V2] BORDERLINE ECG Electronically signed by : KERLINE PARSON, 11/09/2023 23:11:59
--- NOTE | 2023-11-09 15:41 | XR_ITS ---
FINAL REPORT CLINICAL HISTORY: recent URI, CP FINDINGS: 2 views of the chest were obtained . The heart is normal in size. The mediastinum is within normal limits. There is bronchial wall thickening consistent with bronchitis. There is no pneumothorax. Osseous structures are unremarkable. IMPRESSION: Bronchial wall thickening consistent with bronchitis. Reviewed, Interpreted and Dictated by Charles Mcdonald III, MD Transcribed by Katie Hutchinson Authenticated and [facility]
--- NOTE | 2023-11-09 15:48 | ED_ITS ---
Discharge Plan Disposition Patient Disposition: Xfer Short-Term Hosp Chief Complaint: PAIN Prescriptions Prescriptions: No Action triamcinolone acetonide 0.1 % cream 1 applic topical BID Qty: 15 0RF Qulipta 10 mg tablet 10 mg PO DAILY Qty: 90 2RF Ubrelvy 50 mg tablet 50 mg PO ONCE PRN (Reason: migraine ) Qty: 30 2RF Rx Instructions: If needed, may take a second dose at least 2 hours after initial dose. MDD 200mg/24hr. propranolol 40 mg tablet 40 mg PO DAILY Patient Comments: TAKE ONE TABLET BY MOUTH TWICE DAILY sertraline [Zoloft] 50 mg tablet 50 mg PO DAILY Patient Comments: TAKE ONE TABLET BY MOUTH EVERY DAY ondansetron 4 mg Tablet,Disintegrating 4 mg PO Q8H PRN (Reason: Nausea) Qty: 12 0RF hydrocodone-acetaminophen 5-325 mg tablet 1 tab PO Q6H PRN (Reason: post-op pain) Qty: 17 0RF azithromycin [Zithromax] 250 mg tablet 250 mg PO UD DOSE PK Qty: 6 0RF Rx Instructions: Take two (2) tablets today, then one (1) tablet days #2 thru #5 benzonatate 100 mg capsule 100 mg PO TIDP PRN (Reason: Cough) Qty: 30 0RF methylprednisolone 4 mg Tablets,Dose Pack 4 mg PO DIRECTED 6 Days Qty: 21 0RF Rx Instructions: Take 1 pack as directed for 6 days Referrals Follow up/Referrals: Glendy Brar APRN [Primary Care Provider] - See instructions Clinical Impressions Clinical Impression: Transaminitis, Common bile duct dilation, Chest pain Print Language Print Language: Occitan Discharge ED Provider: Kian London HPI General Chief Complaint: PAIN Stated Complaint: chest pain Time Seen by Provider: 11/09/23 15:35 History of Present Illness HPI narrative: Patient is a 42-year-old female with past medical history of recently diagnosed upper respiratory tract infection who presents emergency department for evaluation of chest pain. Patient has no significant comorbidities, she had her gallbladder taken out over a month ago for which things have been going well. Over the last week she has had upper respiratory symptoms, cough, congestion but no significant chest pain for which she was seen by urgent care and discharged on a Z-Christian. Over the last 24 hours she has had persistent substernal chest pain that is nonmodifiable, she also has mid thoracic back pain in a bandlike distribution around her bra line. No vomiting, no diarrhea, no dysuria. No other acute complaints at this time. Per chart review of surgery conducted on it was uneventful and patient was diagnosed with calculus cholecystitis without obstruction. Related Data Home Medications ?Medication ?Instructions ?Recorded ?Confirmed propranolol 40 mg tablet 40 mg PO DAILY 09/17/23 10/13/23 sertraline 50 mg tablet (Zoloft) 50 mg PO DAILY 09/17/23 10/13/23 Previous Rx's ?Medication ?Instructions ?Recorded ondansetron 4 mg disintegrating 4 mg PO Q8H PRN Nausea #12 tabs 09/17/23 tablet hydrocodone 5 mg-acetaminophen 325 1 tab PO Q6H PRN post-op pain #17 10/15/23 mg tablet tabs triamcinolone acetonide 0.1 % 1 applic topical BID #15 grams 10/22/23 topical cream atogepant 10 mg tablet (Qulipta) 10 mg PO DAILY #90 tabs 10/26/23 ubrogepant 50 mg tablet (Ubrelvy) 50 mg PO ONCE PRN migraine 10/26/23 #30 tabs azithromycin 250 mg tablet 250 mg PO UD DOSE PK #6 tabs 11/03/23 (Zithromax) benzonatate 100 mg capsule 100 mg PO TIDP PRN Cough #30 caps 11/03/23 methylprednisolone 4 mg tablets in 4 mg PO DIRECTED 6 days #21 tabs 11/03/23 a dose pack Allergies Allergy/AdvReac Type Severity Reaction Status Date / Time No Known Allergies Allergy Verified 10/22/23 08:01 [facility] Disclaimer: The information contained in this section may have been updated after the patient was seen, as this information can be updated by other users. Medical History Sinusitis Gallstones BMI 29.0-29.9,adult Sinusitis Body mass index (BMI) of 30.0 to 30.9 in adult Cervicogenic headache Migraine Sinus tachycardia PFO (patent foramen ovale) Chest pain Establishing care with new doctor, encounter for BMI 31.0-31.9,adult Chest pain at rest Diabetes Asthma Migraine Anxiety and depression SIRS (systemic inflammatory response syndrome) Ovarian cyst Vertigo Sinusitis Abdominal pain Sciatica Surgical History H/O tubal ligation 01/25/2011 Family History Father Cancer lung Diabetes Mother Hypertension FHx: mental illness COPD (chronic obstructive pulmonary disease) Social History Smoking Status: Never smoker alcohol intake: never substance use type: denies use current occupational status: employed Travel in the last 8 weeks: None household members: spouse and children housing: house marital status: number of children: 3 current occupation: [employer] ROS Obtained: Yes Systems reviewed as appropriate & no additional complaints except as documented Physical Exam General General appearance: alert and in no apparent distress Head Head exam: atraumatic and normocephalic Eye Eye exam: Present PERRL and EOMI ENT ENT exam: Present mucous membranes moist Neck Neck exam: Present normal inspection Chest Chest inspection: Present normal inspection and symmetric chest wall rise Respiratory Respiratory exam: Present normal lung sounds bilaterally; Absent respiratory distress or wheezes Cardiovascular Cardiovascular exam: Present regular rate and normal rhythm Abdominal Exam Abdominal exam: Present soft; Absent tenderness Extremities Exam Extremities exam: Present normal inspection Back Exam Back exam: Absent tenderness Neurological Exam Neurological exam: Present alert Psychiatric Psychiatric exam: Present normal affect Skin Skin exam: Present warm and dry HEART Score HEART Score HEART Score assessment performed?: Yes History (anamnesis): Moderately suspicious ECG: Normal Age: <45 years Risk factors: No known risk factors Troponin: </= normal limit HEART Score: 1 Critical Care Critical Care Time Critical Care Time: Yes Attestation: On 11/09/23, the high probability of a clinically significant, sudden or life threatening deterioration of the following system(s) required my full and direct attention, intervention and personal management. The time I documented below is in addition to time spent performing reported procedures but includes the following listed in this critical care notation. Total Time Total Critical Care Time: 45 Medical Decision Making Bravo Inquiry Pt receiving controlled substance: No Vital Signs Vital Signs: 11/09/23 15:32 11/09/23 16:24 11/09/23 16:30 Temperature 98.0 F Temperature Source Oral Pulse Rate 55 L 53 L Pulse Rate [Right] 70 Respiratory Rate 23 24 14 Blood Pressure 150/84 H 138/82 Blood Pressure [Right Arm] 165/88 H Blood Pressure Mean [Right Arm] 113 Blood Pressure Source [Right Arm] Automatic Cuff 02 Sat by Pulse Oximetry 99 100 98 Oxygen Delivery Method Room Air Room Air Room Air 11/09/23 17:00 11/09/23 17:47 11/09/23 18:00 Temperature Temperature Source Pulse Rate 61 76 70 Pulse Rate [Right] Respiratory Rate 15 13 14 Blood Pressure 126/82 145/84 H 145/81 H Blood Pressure [Right Arm] Blood Pressure Mean [Right Arm] Blood Pressure Source [Right Arm] 02 Sat by Pulse Oximetry 95 99 99 Oxygen Delivery Method Room Air Room Air Room Air 11/09/23 18:30 11/09/23 19:25 Temperature Temperature Source Pulse Rate 65 70 Pulse Rate [Right] Respiratory Rate 13 Blood Pressure 151/90 H 125/82 Blood Pressure [Right Arm] Blood Pressure Mean [Right Arm] Blood Pressure Source [Right Arm] 02 Sat by Pulse Oximetry 99 96 Oxygen Delivery Method Room Air Lab Data Labs: Lab Results 11/09/23 15:33: WBC 7.6, RBC 4.73, Hgb 14.3, Hct 44.8, MCV 94.6, MCH 30.2, MCHC 32.0, RDW 12.4, Plt Count 348, MPV 8.2, Neut % (Auto) 72.2, Lymph % (Auto) 18.7, Bollinger % (Auto) 6.3, Eos % (Auto) 1.7, Baso % (Auto) 1.0, Neut # (Auto) 5.5, Lymph # (Auto) 1.4, Bollinger # (Auto) 0.5, Eos # (Auto) 0.1, Baso # (Auto) 0.1, D-Dimer 2.24 H, Sodium 137, Potassium 3.6, Chloride 101, Carbon Dioxide 32 H, Anion Gap 7.6, BUN 5 L, Creatinine 0.50 L, Estimated Creat Clear 162, Estimated GFR 134, Est GFR ( Amer) 162, Glucose 122 H, Calcium 9.4, Total Bilirubin 3.5 H, A ST 1480 H*, ALT 1299 H*, Alkaline Phosphatase 214 H, Troponin I < 0.01, Total Protein 7.6, Albumin 4.0, Globulin 3.6 H, Albumin/Globulin Ratio 1.1, Serum HCG, Qual Negative 11/09/23 17:12: PT 10.9, INR 0.97, Ammonia 27 11/09/23 17:47: Sodium 137, Potassium 3.4 L, Chloride 100, Carbon Dioxide 32 H, Anion Gap 8.4, BUN 4 L, Creatinine 0.50 L, Estimated Creat Clear 162, Estimated GFR 134, Est GFR ( Amer) 162, Glucose 113 H, Calcium 8.9, Total Bilirubin 3.6 H, Direct Bilirubin 2.5 H, AST 1381 H*, ALT 1179 H*, Alkaline Phosphatase 235 H, Total Protein 7.2, Albumin 4.1, Globulin 3.1, Albumin/Globulin Ratio 1.3, Lipase 75, Salicylates < 1.0 L, Acetaminophen 14 11/09/23 17:48: VBG pH 7.35, VBG pCO2 52.4 H, VBG pO2 34.9, VBG HCO3 28.0, VBG Total CO2 29.6 H, VBG O2 Saturation 67.4, VBG Base Excess 2.3, VBG Lactic Acid 1.7 11/09/23 15:33 11/09/23 17:47 Response Orders (Tests/Meds): ED MEDICATIONS Generic Name Dose Route Start Last Admin Trade Name Freq PRN Reason Stop Dose Admin Piperacillin Sod/Tazobactam 100 mls @ 200 mls/hr 11/09/23 19:00 11/09/23 19:27 Sod 4.5 gm/ Sodium Chloride IV 11/19/23 18:59 200 mls/hr Q8H ANNITA Administration Sodium Chloride 10 ml 11/09/23 17:27 11/09/23 17:28 Sodium Chloride 0.9% 10ml Syr (Rad Only) IV 12/09/23 17:26 10 ml NEEDED PRN Administration Maintain IV Site Discontinued Medications Generic Name Dose Route Start Last Admin Trade Name Freq PRN Reason Stop Dose Admin Acetaminophen 1,000 mg 11/09/23 15:41 11/09/23 16:20 Acetaminophen 1,000mg/100ml Vial IV 11/09/23 15:42 1,000 mg ONCE ONE Administration Belladonna Alkaloids 60 ml 11/09/23 15:47 11/09/23 16:20 Belladonna Alkaloids 60 Ml Ml PO 11/09/23 15:48 60 ml ONCE ONE Administration Lactated Ringer's 1,000 mls @ 999 mls/hr 11/09/23 16:56 11/09/23 17:29 Lactated Ringer's 1000 Ml Bag IV 11/09/23 17:56 999 mls/hr .Q1H1M ONE Administration Piperacillin Sod/Tazobactam 100 mls @ 200 mls/hr 11/09/23 18:38 11/09/23 19:26 Sod 4.5 gm/ Sodium Chloride IV 11/09/23 19:07 Not Given ONCE ONE Iopamidol 80 ml 11/09/23 17:27 11/09/23 17:28 Iopamidol-370 (76%);100ml Bottle IV 11/09/23 17:28 80 ml ONCE ONE Administration Ketorolac Tromethamine 30 mg 11/09/23 15:41 11/09/23 16:21 Ketorolac 30mg/Ml Vial IV 11/09/23 15:42 30 mg ONCE ONE Administration Morphine Sulfate 4 mg 11/09/23 18:55 11/09/23 19:22 Morphine 4mg/Ml Syringe IV 11/09/23 18:56 4 mg ONCE ONE Administration Sodium Chloride 50 ml 11/09/23 17:27 11/09/23 17:28 0.9 % Sodium Chloride 50 Ml Vial IV 11/09/23 17:28 50 ml ONCE ONE Administration ORDERS Category Date Time Status CT abdomen pelvis w con Stat Cat Scan 11/09/23 16:[address] angio chest - dissection Stat Cat Scan 11/09/23 16:55 Taken CXR 2 view (NOT portable) [XR chest 2V] Stat Exams 11/09/23 15:41 Completed POCUS Point of Care (ER Only) Stat Exams 11/09/23 15:47 Completed Acetaminophen Routine Lab 11/09/23 17:47 Completed Ammonia Stat Lab 11/09/23 17:12 Completed Bilirubin,Direct Stat Lab 11/09/23 17:47 Completed CBC w/Auto Diff [Complete Blood Count Auto Diff] Stat Lab 11/09/23 15:33 Completed CMP [Comprehensive Metabolic Panel] Stat Lab 11/09/23 15:33 Completed CMP [Comprehensive Metabolic Panel] Stat Lab 11/09/23 17:47 Completed D-Dimer Stat Lab 11/09/23 15:33 Completed HCG Qualitative, Serum Stat Lab 11/09/23 15:33 Completed Hepatitis Panel Stat Lab 11/09/23 17:47 Received INR [Prothrombin Time INR] Stat Lab 11/09/23 17:12 Completed Lipase Stat Lab 11/09/23 17:47 Completed Procalcitonin Stat Lab 11/09/23 17:47 Received Salicylate Routine Lab 11/09/23 17:47 Completed Trop I [Troponin I] Stat Lab 11/09/23 15:33 Completed Blood Culture Stat Micro 11/09/23 18:49 Received VBG [Venous Blood Gas] Stat RT 11/09/23 17:48 Completed ECG Data Tracing #1: ECG Narrative: Independently interpreted by me, rate is 66, rhythm is regular, axis is normal, no ST elevation in anatomical contiguous leads, QTc 414 MDM Narrative Medical Decision Narrative: In summary patient is a 42-year-old female past medical history described above who presents emergency department for evaluation of chest pain in the setting of upper respiratory tract infection. Patient is hemodynamically stable nontoxic- appearing upon arrival, afebrile. Differential diagnosis includes ACS, noncardiac chest pain, pleurisy, pulmonary embolism, dissection, among others. Workup will be conducted with hematologic labs, two-view chest x-ray. I consider patient low risk pretest for pulmonary embolism and dissection therefore D-dimer will be obtained. Initial inventions include Tylenol, GI cocktail, Toradol. Initial workup reviewed by me, no significant leukocytosis, D-dimer is elevated which will necessitate CT imaging to rule out pulmonary embolism versus dissection. No critical electrolyte abnormalities or ABBY. There is fulminant hepatitis of undetermined etiology with elevated bilirubin. Repeat CMP, direct bilirubin, INR, ammonia, hepatitis panel, Tylenol and salicylate level will be added on. I had an interactive discussion with radiology who contacted me personally, they are concerned for radiographic findings consistent with acute cholangitis with mild central intrahepatic ductal dilatation despite the fact that the common bile duct appears to taper normally the presence of biliary ductal dilatation seems out of proportion to reservoir effect from status postcholecystectomy. CTA chest pending. On repeat physical exam patient does have right upper quadrant pain but is not modifiable. Morphine will be administered. Broad-spectrum antibiotics with Zosyn will be initiated after obtaining blood cultures. Patient appears euvolemic therefore aggressive fluid resuscitation was considered on top of her previous bolus will be deferred. INR and ammonia normal. Acid-base status normal. Direct bilirubin 2.5. Tylenol level is 14 is nonactionable given that she has had Tylenol before the level was drawn. Patient is adamant that she has not ingested anything prior to arrival. Salicylates undetectably low. Patient will require gastroenterology for continued evaluation therefore send Church will be contacted. I discussed this case with Dr. Vides at [facility] at approximately 7:30 PM, they recommend adding on a procalcitonin and patient was added to wait list for which there are few people ahead of her. I discussed the case with Dr. Lockhart [facility] graciously accepted patient for transfer for continued evaluation at this time. CTA chest pending.
[2023-11-09 15:55] LABS: Basophils # 0.1 K/mm3 (0-0.2); Eosinophils # 0.1 K/mm3 (0.0-0.4); Eosinophils % 1.7 % (0.1-12.0); Hematocrit 44.8 % (37.0-47.0); Hemoglobin 14.3 g/dL (12.2-16.2); Lymphocytes # 1.4 K/mm3 (0.7-4.5); Lymphocytes % 18.7 % (10-50); Mean Corpuscular Hemoglobin 30.2 pg (27.0-31.2); Mean Corpuscular Volume 94.6 fl (81-99); Mean Platelet Volume 8.2 fl (7.4-10.4); Monocytes # 0.5 K/mm3 (0.1-1.0); Monocytes % 6.3 % (1.7-9.3); Neutrophils # 5.5 K/mm3 (1.8-7.8); Neutrophils % 72.2 % (37.0-80.0); Platelet Count 348 K/mm3 (142-424); Red Blood Count 4.73 M/mm3 (4.20-5.40); Red Cell Distribution Width 12.4 % (11.5-17.5); White Blood Count 7.6 K/mm3 (4.8-10.8)
[2023-11-09] MEDS: BELLADONNA ALKALOIDS 60 ML ML PO (16:20)
[2023-11-09] MEDS: ACETAMINOPHEN 1,000MG/100ML VIAL 1000 MG IV (16:20)
[2023-11-09] MEDS: KETOROLAC 30MG/ML VIAL 30 MG IV (16:21)
[2023-11-09 16:22] LABS: HCG Qualitative, Serum Negative (Negative)
[2023-11-09 16:30] LABS: Albumin/Globulin Ratio 1.1 (1.1-1.8); Alkaline Phosphatase 214 U/L (38-126); Anion Gap 7.6 mEq/L (5-15); Bilirubin,Total 3.5 mg/dl (0.2-1.3); Blood Urea Nitrogen 5 mg/dl (7-17); Calcium 9.4 mg/dl (8.4-10.2); Carbon Dioxide 32 mmol/L (22.0-30.0); Chloride 101 mmol/L (98-107); Creatinine Clearance Estimated 162 mL/min (50-200); Estimated Glomerular Filt Rate 134 ml/min (>60); GFR (African American) 162 ML/MIN (>60); Globulin 3.6 g/dL (1.3-3.2); Glucose 122 mg/dl (74-100); Potassium 3.6 mmoL/L (3.5-5.1); Sodium 137 mmol/L (136-145); Total Protein,Serum 7.6 g/dl (6.3-8.2)
[2023-11-09 16:36] LABS: D-Dimer 2.24 ug/mL (0.0-0.5)
[2023-11-09 16:37] LABS: Alanine Aminotransferase 1299 U/L (12-78)
[2023-11-09 16:43] LABS: Troponin I < 0.01 ng/ml (0.00-0.034)
--- NOTE | 2023-11-09 16:55 | CT_ITS ---
PROCEDURE INFORMATION: Exam: CT Abdomen And Pelvis With Contrast Exam date and time: 11/09/2023 5:25 PM Age: 42 years old Clinical indication: Abdominal pain; Generalized; Prior surgery; Surgery date: <1 month; Surgery type: Ccy; Additional info: Recent ccy a month ago, fulminant hepatitis TECHNIQUE: Imaging protocol: Computed tomography of the abdomen and pelvis with contrast. 3D rendering (Not supervised by radiologist): MIP and/or 3D reconstructed images were created by the technologist. Radiation optimization: All CT scans at this facility use at least one of these dose optimization techniques: automated exposure control; mA and/or kV adjustment per patient size (includes targeted exams where dose is matched to clinical indication); or iterative reconstruction. Contrast material: ISOVUE; Contrast volume: 80 ml; Contrast route: IV; COMPARISON: CT ABDOMEN PELVIS W CON 03/13/2020 5:15 AM FINDINGS: Lungs: The visualized lung bases demonstrate no focal infiltrates. Liver: Mild diffuse hepatic steatosis is identified. Gallbladder and biliary ducts: There has been a cholecystectomy. Mild central intrahepatic biliary ductal dilatation. There is also mild dilation of the proximal common bile duct measuring up to a cm. The common bile duct appears to taper normally toward the ampulla. There appears to be subtle hyperenhancement of the mucosa of the central intrahepatic ducts and proper hepatic duct and near the origin of the CBD. Correlate clinically for possible cholangitis. Patient is status post cholecystectomy. Pancreas: The pancreas is normal. Spleen: The spleen is normal. Adrenal glands: The adrenal glands appear within normal limits. Kidneys and ureters: The kidneys are normal. Stomach and bowel: The stomach appears within normal limits. No wall thickening or inflammatory change. Appendix: No evidence of appendicitis. Intraperitoneal space: No free air. No evidence for focal fluid collection or ascites. No evidence for omental thickening. Vasculature: Unremarkable. No abdominal aortic aneurysm. Lymph nodes: Unremarkable. No pathologically enlarged lymph nodes are identified. Urinary bladder: The bladder appears within normal limits. No wall thickening. Reproductive: Intramural fibroid measures 4.4 cm. Bones/joints: Unremarkable. No acute fracture. Soft tissues: Stable anterior abdominal wall hernia containing fat measures 3.7 cm diameter. The visualize subcutaneous soft tissues and abdominal wall and flank wall appear unremarkable. IMPRESSION: 1. Possible changes of acute cholangitis. See above discussion. 2. Mild central intrahepatic biliary ductal dilatation. Despite the fact that the CBD appears to taper normally, the presence of the biliary ductal dilatation seems out of proportion to the merely seen with reservoir effect status post cholecystectomy. Therefore, Consider MRCP to exclude any potential occult lesion to account for the biliary ductal dilatation 3. The liver parenchyma appears unremarkable with the exception of mild hepatic steatosis.. 4. Stable anterior abdominal wall hernia containing fat measures 3.7 cm diameter. 5. Intramural fibroid measures 4.4 cm.
--- NOTE | 2023-11-09 16:55 | CT_ITS ---
PROCEDURE INFORMATION: Exam: CTA Chest With Contrast Exam date and time: 11/09/2023 5:25 PM Age: 42 years old Clinical indication: Pain; Other: Cp to back, elevated dimer TECHNIQUE: Imaging protocol: Computed tomographic angiography of the chest with contrast. Exam focused on the arteries. 3D rendering (Not supervised by radiologist): MIP and/or 3D reconstructed images were created by the technologist. Radiation optimization: All CT scans at this facility use at least one of these dose optimization techniques: automated exposure control; mA and/or kV adjustment per patient size (includes targeted exams where dose is matched to clinical indication); or iterative reconstruction. Contrast material: 80; Contrast volume: 70 ml; Contrast route: INTRAVENOUS (IV); COMPARISON: CT ANGIO CHEST 11/09/2023 5:25 PM FINDINGS: Pulmonary arteries: No CT evidence for pulmonary embolism. Aorta: Supravalvular ectasia ascending aorta maximal transverse dimension 3.4 cm. Lungs: No acute infiltrates.. Linear scarring identified within the caudal middle lobe. Pleural spaces: Unremarkable. No pneumothorax. No pleural effusion. Heart: Unremarkable. No cardiomegaly. No pericardial effusion. Lymph nodes: Unremarkable. No enlarged lymph nodes. Bones/joints: Unremarkable. No acute fracture. Soft tissues: Unremarkable. IMPRESSION: 1. No CT evidence for pulmonary embolism. No evidence for aortic dissection. 2. Supravalvular ectasia ascending aorta maximal transverse dimension 3.4 cm. 3. No acute infiltrates..
--- NOTE | 2023-11-09 17:00 | PC.NURSE ---
Dr London noticed critical lab results of AST/ALT. Lab did not call for critical results.
--- NOTE | 2023-11-09 17:10 | PC.NURSE ---
Radiology notified to take pt to ct next.
[2023-11-09] MEDS: SODIUM CHLORIDE 0.9% 10ML SYR (RAD ONLY) 10 ML IV (17:28)
[2023-11-09] MEDS: 0.9 % SODIUM CHLORIDE 50 ML VIAL IV (17:28)
[2023-11-09] MEDS: IOPAMIDOL-370 (76%);100ML BOTTLE 80 ML IV (17:28)
--- NOTE | 2023-11-09 17:28 | PC.NURSE ---
pt to ct scan
[2023-11-09] MEDS: LACTATED RINGERS 1000ML 1,000 ML 999 ML IV (17:29)
--- NOTE | 2023-11-09 17:42 | PC.NURSE ---
Pt back from ct scan. Started 2nd line and obtained new full set of labs, hepatitis panel, VBG, and lactic.
[2023-11-09 17:45] LABS: INR 0.97 (0.9-1.1); Prothrombin Time 10.9 seconds (10.1-12.5)
[2023-11-09 18:03] LABS: Lactate Venous 1.7 mmol/L (0.4-2.0); VBG Base Excess 2.3 mmol/L (-2.4-2.3); VBG Oxygen Saturation 67.4 % (50-70); VBG PH 7.35 mmol/L (7.31-7.41); VBG PO2 34.9 mmol/L (28-40); VBG Total CO2 29.6 mmol/L (23-27)
[2023-11-09 18:06] LABS: VBG PCO2 52.4 mmol/L (35-51)
--- NOTE | 2023-11-09 18:06 | PC.NURSE ---
aware of vbg results
[2023-11-09 18:07] LABS: Albumin Level 4.1 g/dl (3.5-5.0); Chloride 100 mmol/L (98-107); Potassium 3.4 mmoL/L (3.5-5.1); Sodium 137 mmol/L (136-145)
[2023-11-09 18:10] LABS: Albumin/Globulin Ratio 1.3 (1.1-1.8); Alkaline Phosphatase 235 U/L (38-126); Anion Gap 8.4 mEq/L (5-15); Bilirubin,Total 3.6 mg/dl (0.2-1.3); Blood Urea Nitrogen 4 mg/dl (7-17); Calcium 8.9 mg/dl (8.4-10.2); Carbon Dioxide 32 mmol/L (22.0-30.0); Creatinine Clearance Estimated 162 mL/min (50-200); Estimated Glomerular Filt Rate 134 ml/min (>60); GFR (African American) 162 ML/MIN (>60); Globulin 3.1 g/dL (1.3-3.2); Glucose 113 mg/dl (74-100); Total Protein,Serum 7.2 g/dl (6.3-8.2)
[2023-11-09 18:23] LABS: Ammonia 27 umol/L (9-30)
[2023-11-09 18:28] LABS: Alanine Aminotransferase 1179 U/L (12-78); Aspartate Amino Transferase 1381 U/L (14-36)
[2023-11-09 18:32] LABS: Bilirubin,Direct 2.5 mg/dl (0.0-0.4)
[2023-11-09 18:33] LABS: Acetaminophen 14 ug/ml (10-30)
[2023-11-09 18:34] LABS: Aspartate Amino Transferase 1480 U/L (14-36)
[2023-11-09 18:47] LABS: Salicylate < 1.0 mg/dL (2.0-20.0)
[2023-11-09 18:52] LABS: Lipase 75 U/L (23-300)
--- NOTE | 2023-11-09 18:58 | PC.NURSE ---
spoke to [facility] regarding tx for GI. they advised they would call us back
[2023-11-09] MEDS: MORPHINE 4MG/ML SYRINGE 4 MG IV (19:22)
[2023-11-09] MEDS: PIPERACILLIN/TAZO 4.5 GM in 0.9 % SODIUM CHLORIDE 100 ML IV (19:27)
--- NOTE | 2023-11-09 19:31 | PC.NURSE ---
received call back from gladys krishnamurthy md speaking with dr yoselin caicedo.
--- NOTE | 2023-11-09 19:34 | PC.NURSE ---
waitlisted at [facility]
--- NOTE | 2023-11-09 19:49 | PC.NURSE ---
call placed to [facility] transfer [place]. was advised they will call back. dx: cholangitis.
--- NOTE | 2023-11-09 20:13 | PC.NURSE ---
Patient was accepted to [facility] by provider Adeline Rose, room # 107. made aware.
[2023-11-09 21:15] LABS: Procalcitonin 0.151 ng/mL (0.0-2.0)
--- NOTE | 2023-11-10 07:35 | PC.NURSE ---
faxed ct scan to [facility] where pt was transferred
[2023-11-11 06:21] LABS: HBsAg Screen Negative (Negative); HCV Ab Non Reactive (Non Reactive); Hep A Ab, IGM Negative (Negative); Hep B Core Ab, IgM Negative (Negative)
== END 2023-11-09 20:41 | disposition short-term general hospital (02) ==
PROVIDERS: Emergency Provider Emergency Medicine; PCP Nurse Practitioner Family
DX: R07.89 Other chest pain (principal); R74.01 Elevation of levels of liver transaminase levels; K83.8 Other specified diseases of biliary tract; M54.6 Pain in thoracic spine
CPT/HCPCS: 71046; 71275; 74177; 80053; 80074; 80329; 82140; 82248; 82803; 83690; 84145; 84484; 84703; 85025; 85378; 85610; 87040; 93005; 96361; 96365; 96366; 96375; 99285; G0480; J0131; J1885; J2270; J2543; J7120; Q9967

== ENCOUNTER 2023-11-14 20:36 | Observation (INO) | payer BC, SELFPAY ==
[2023-11-14] VITALS (9 sets, daily range): BP systolic 127–146; BP diastolic 80–94; PULSE 70–112; RESP 18; TEMP 36.6–36.9; O2SAT 96–98; BMI 29.8
--- NOTE | 2023-11-14 20:53 | CT_ITS ---
PROCEDURE INFORMATION: Exam: CT Abdomen And Pelvis With Contrast Exam date and time: 11/14/2023 9:35 PM Age: 42 years old Clinical indication: Abdominal pain; Additional info: Post ercp pain (re thursday) TECHNIQUE: Imaging protocol: Computed tomography of the abdomen and pelvis with contrast. Radiation optimization: All CT scans at this facility use at least one of these dose optimization techniques: automated exposure control; mA and/or kV adjustment per patient size (includes targeted exams where dose is matched to clinical indication); or iterative reconstruction. Contrast material: ISOVUE; Contrast volume: 75 ml; Contrast route: IV; COMPARISON: CT ABDOMEN PELVIS W CON 11/09/2023 5:25 PM FINDINGS: Lungs: Small areas of bibasilar atelectasis and/or scarring. Liver: Mild hepatic steatosis is evident. Gallbladder and biliary ducts: The gallbladder is absent. A biliary stent has been placed since the prior examination. No biliary ductal dilation. Pneumobilia is evident. Pancreas: Normal. No ductal dilation. Spleen: Normal. No splenomegaly. Adrenal glands: Normal. No mass. Kidneys and ureters: Normal. No hydronephrosis. Stomach and bowel: Unremarkable. No obstruction. No mucosal thickening. Appendix: No evidence of appendicitis. Intraperitoneal space: Unremarkable. No free air. No significant fluid collection. Vasculature: Unremarkable. No abdominal aortic aneurysm. Lymph nodes: Unremarkable. No enlarged lymph nodes. Urinary bladder: Unremarkable as visualized. Reproductive: Fibroid uterus is again noted. Bones/joints: Moderate degenerative changes of the L4-L5 and L5-S1 levels. No acute fracture. Soft tissues: Stable fat containing immediate supraumbilical ventral hernia. IMPRESSION: 1. No acute findings. 2. A biliary stent is now in place. No biliary ductal dilation. Pneumobilia is evident. 3. Other stable nonemergent findings as noted.
--- NOTE | 2023-11-14 21:02 | ED_ITS ---
Discharge Plan Disposition Patient Disposition: Admitted Condition: Fair Clinical Impressions Clinical Impression: Intractable abdominal pain Discharge ED Provider: Fidel Stephens General Adult HPI <Fidel Stephens MD - Last Filed: 11/14/23 21:04> General Chief complaint: Abdominal Pain Stated complaint: Pain upper stomach,sharp abd pain,nausea Time Seen by Provider: 11/14/23 20:40 Mode of Arrival: Ambulatory Source of Information: Patient Limitations: No Limitations Description of Symptoms (Recalled from ER Triage Doc. by RN): Abdominal pain post ERCP- worsening. All the way around abdomen. History of Present Illness HPI narrative: Patient is a 42-year-old female recently transferred to [facility] for choledocholithiasis had an ERCP on Thursday discharged on Thursday now with persistent and worsening epigastric abdominal pain. She did have a history of pancreatitis that was presumed to be gallstone pancreatitis in the past that she had her gallbladder removed within the last year. No sudden pain after the surgery no fevers or chills etc. She did take the Percocets that were prescribed to her after her surgical procedure without any significant improvement. Denies any other past medical history. Related Data Home Medications ?Medication ?Instructions ?Recorded ?Confirmed propranolol 40 mg tablet 40 mg PO DAILY 09/17/23 10/13/23 sertraline 50 mg tablet (Zoloft) 50 mg PO DAILY 09/17/23 10/13/23 Previous Rx's ?Medication ?Instructions ?Recorded ondansetron 4 mg disintegrating 4 mg PO Q8H PRN Nausea #12 tabs 09/17/23 tablet hydrocodone 5 mg-acetaminophen 325 1 tab PO Q6H PRN post-op pain #17 10/15/23 mg tablet tabs triamcinolone acetonide 0.1 % 1 applic topical BID #15 grams 10/22/23 topical cream atogepant 10 mg tablet (Qulipta) 10 mg PO DAILY #90 tabs 10/26/23 ubrogepant 50 mg tablet (Ubrelvy) 50 mg PO ONCE PRN migraine 10/26/23 #30 tabs azithromycin 250 mg tablet 250 mg PO UD DOSE PK #6 tabs 11/03/23 (Zithromax) benzonatate 100 mg capsule 100 mg PO TIDP PRN Cough #30 caps 11/03/23 methylprednisolone 4 mg tablets in 4 mg PO DIRECTED 6 days #21 tabs 11/03/23 a dose pack Allergies Allergy/AdvReac Type Severity Reaction Status Date / Time No Known Allergies Allergy Verified 10/22/23 08:01 [facility] <Fidel Stephens MD - Last Filed: 11/14/23 21:04> [facility] Disclaimer: The information contained in this section may have been updated after the patient was seen, as this information can be updated by other users. Medical History Sinusitis Gallstones BMI 29.0-29.9,adult Sinusitis Body mass index (BMI) of 30.0 to 30.9 in adult Cervicogenic headache Migraine Sinus tachycardia PFO (patent foramen ovale) Chest pain Establishing care with new doctor, encounter for BMI 31.0-31.9,adult Chest pain at rest Diabetes Asthma Migraine Anxiety and depression SIRS (systemic inflammatory response syndrome) Ovarian cyst Vertigo Sinusitis Abdominal pain Sciatica Surgical History H/O tubal ligation 01/25/2011 Family History Father Cancer lung Diabetes Mother Hypertension FHx: mental illness COPD (chronic obstructive pulmonary disease) Social History Smoking Status: Never smoker alcohol intake: never substance use type: denies use current occupational status: employed Travel in the last 8 weeks: None household members: spouse and children housing: house marital status: number of children: 3 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 <Juan C Mensah MD - Last Filed: 11/15/23 02:37> ROS Obtained: Yes Systems reviewed as appropriate & no additional complaints except as documented Physical Exam <Fidel Stephens MD - Last Filed: 11/14/23 21:04> Respiratory Respiratory exam: Present normal lung sounds bilaterally Cardiovascular Cardiovascular exam: Present regular rate and normal rhythm Abdominal Exam Abdominal exam: Present soft, distention and tenderness (Epigastric tenderness) <Juan C Mensah MD - Last Filed: 11/15/23 02:37> General General appearance: alert and in no apparent distress Neurological Exam Neurological exam: Present alert and oriented X3 Medical Decision Making <Fidel Stephens MD - Last Filed: 11/14/23 21:04> Vital Signs: 11/14/23 20:47 11/14/23 20:56 11/14/23 22:18 Temperature 98.4 F 98 F Temperature Source Oral Oral Pulse Rate 89 87 Pulse Rate [Left Radial] 112 H Respiratory Rate 18 18 Blood Pressure 128/82 146/94 H Blood Pressure [Right Arm] 146/92 H Blood Pressure Mean [Right Arm] 110 Blood Pressure Source [Right Arm] Automatic Cuff Blood Pressure Position [Right Arm] Supine 02 Sat by Pulse Oximetry 98 97 98 Oxygen Delivery Method Room Air Room Air 11/14/23 22:30 11/14/23 22:45 11/14/23 23:00 Temperature Temperature Source Pulse Rate 79 80 77 Pulse Rate [Left Radial] Respiratory Rate Blood Pressure 133/85 142/80 H 132/84 Blood Pressure [Right Arm] Blood Pressure Mean [Right Arm] Blood Pressure Source [Right Arm] Blood Pressure Position [Right Arm] 02 Sat by Pulse Oximetry 97 96 96 Oxygen Delivery Method 11/14/23 23:15 11/14/23 23:30 11/14/23 23:45 Temperature Temperature Source Pulse Rate 70 76 79 Pulse Rate [Left Radial] Respiratory Rate Blood Pressure 127/81 132/87 133/85 Blood Pressure [Right Arm] Blood Pressure Mean [Right Arm] Blood Pressure Source [Right Arm] Blood Pressure Position [Right Arm] 02 Sat by Pulse Oximetry 97 98 96 Oxygen Delivery Method 11/15/23 00:00 11/15/23 00:15 11/15/23 00:30 Temperature Temperature Source Pulse Rate 75 67 72 Pulse Rate [Left Radial] Respiratory Rate Blood Pressure 128/83 132/80 138/85 Blood Pressure [Right Arm] Blood Pressure Mean [Right Arm] Blood Pressure Source [Right Arm] Blood Pressure Position [Right Arm] 02 Sat by Pulse Oximetry 95 95 95 Oxygen Delivery Method 11/15/23 00:45 Temperature Temperature Source Pulse Rate 71 Pulse Rate [Left Radial] Respiratory Rate Blood Pressure 141/77 H Blood Pressure [Right Arm] Blood Pressure Mean [Right Arm] Blood Pressure Source [Right Arm] Blood Pressure Position [Right Arm] 02 Sat by Pulse Oximetry 95 Oxygen Delivery Method Lab Data Lab Results 11/14/23 20:57: WBC 14.5 H, RBC 4.69, Hgb 14.2, Hct 43.7, MCV 93.2, MCH 30.3, MCHC 32.5, RDW 12.9, Plt Count 292, MPV 9.0, Neut % (Auto) 72.6, Lymph % (Auto) 18.8, [place] % (Auto) 5.7, Eos % (Auto) 2.3, Baso % (Auto) 0.5, Neut # (Auto) 10.5 H, Lymph # (Auto) 2.7, [place] # (Auto) 0.8, Eos # (Auto) 0.3, Baso # (Auto) 0.1, Sodium 136, Potassium 3.7, Chloride 106, Carbon Dioxide 24, Anion Gap 9.7, BUN 6 L, Creatinine 0.50 L, Estimated Creat Clear 162, Estimated GFR 134, Est GFR ( Amer) 162, Glucose 115 H, Calcium 8.8, Total Bilirubin 0.8, AST 68 H, A LT 236 H, Alkaline Phosphatase 242 H, Total Protein 7.1, Albumin 4.0, Globulin 3.1, Albumin/Globulin Ratio 1.3, Lipase 57 11/14/23 20:57 11/14/23 20:57 Orders (Tests/Meds): ED MEDICATIONS Generic Name Dose Route Start Last Admin Trade Name Freq PRN Reason Stop Dose Admin Sodium Chloride 10 ml 11/14/23 21:38 11/14/23 21:38 Sodium Chloride 0.9% 10ml Syr (Rad Only) IV 12/14/23 21:37 10 ml NEEDED PRN Administration Maintain IV Site Discontinued Medications Generic Name Dose Route Start Last Admin Trade Name Freq PRN Reason Stop Dose Admin Hydromorphone HCl 0.5 mg 11/15/23 02:02 11/15/23 02:20 Hydromorphone 2mg/Ml Syringe IV 11/15/23 02:03 0.5 mg ONCE ONE Administration Lactated Ringer's 1,000 mls @ 999 mls/hr 11/14/23 21:00 11/14/23 21:04 Lactated Ringer's 1000 Ml Bag IV 11/14/23 22:00 999 mls/hr .Q1H1M ANNITA Administration Iopamidol 75 ml 11/14/23 21:38 11/14/23 21:38 Iopamidol-370 (76%);100ml Bottle IV 11/14/23 21:39 75 ml ONCE ONE Administration Morphine Sulfate 4 mg 11/14/23 20:51 11/14/23 21:04 Morphine 4mg/Ml Syringe IV 11/14/23 20:52 4 mg ONCE ONE Administration Morphine Sulfate 4 mg 11/14/23 22:18 11/14/23 22:33 Morphine 4mg/Ml Syringe IV 11/14/23 22:19 4 mg ONCE ONE Administration Ondansetron HCl 4 mg 11/14/23 20:51 11/14/23 21:04 Ondansetron 4mg/2ml Vial IV 11/14/23 20:52 4 mg ONCE ONE Administration Ondansetron HCl 4 mg 11/14/23 22:18 11/14/23 22:32 Ondansetron 4mg/2ml Vial IV 11/14/23 22:19 4 mg ONCE ONE Administration ORDERS Category Date Time Status CT abdomen pelvis w con Stat Cat Scan 11/14/23 20:53 Completed CBC w/Auto Diff [Complete Blood Count Auto Diff] Stat Lab 11/14/23 20:57 Completed CMP [Comprehensive Metabolic Panel] Stat Lab 11/14/23 20:57 Completed Lipase Stat Lab 11/14/23 20:57 Completed Medical Decision Narrative: 42-year-old with above history and physical with epigastric tenderness following recent ERCP most likely post ERCP pancreatitis. Other things on the differential would be infection bleeding perforation etc. Will get a contrasted CT scan for further evaluation addition to labs IV fluids pain medicine nausea medicine have been administered will reassess <Juan C Mensah MD - Last Filed: 11/15/23 02:37> [facility] Inquiry Pt receiving controlled substance: No Vital Signs: 11/14/23 20:47 11/14/23 20:56 11/14/23 22:18 Temperature 98.4 F 98 F Temperature Source Oral Oral Pulse Rate 89 87 Pulse Rate [Left Radial] 112 H Respiratory Rate 18 18 Blood Pressure 128/82 146/94 H Blood Pressure [Right Arm] 146/92 H Blood Pressure Mean [Right Arm] 110 Blood Pressure Source [Right Arm] Automatic Cuff Blood Pressure Position [Right Arm] Supine 02 Sat by Pulse Oximetry 98 97 98 Oxygen Delivery Method Room Air Room Air 11/14/23 22:30 11/14/23 22:45 11/14/23 23:00 Temperature Temperature Source Pulse Rate 79 80 77 Pulse Rate [Left Radial] Respiratory Rate Blood Pressure 133/85 142/80 H 132/84 Blood Pressure [Right Arm] Blood Pressure Mean [Right Arm] Blood Pressure Source [Right Arm] Blood Pressure Position [Right Arm] 02 Sat by Pulse Oximetry 97 96 96 Oxygen Delivery Method 11/14/23 23:15 11/14/23 23:30 11/14/23 23:45 Temperature Temperature Source Pulse Rate 70 76 79 Pulse Rate [Left Radial] Respiratory Rate Blood Pressure 127/81 132/87 133/85 Blood Pressure [Right Arm] Blood Pressure Mean [Right Arm] Blood Pressure Source [Right Arm] Blood Pressure Position [Right Arm] 02 Sat by Pulse Oximetry 97 98 96 Oxygen Delivery Method 11/15/23 00:00 11/15/23 00:15 11/15/23 00:30 Temperature Temperature Source Pulse Rate 75 67 72 Pulse Rate [Left Radial] Respiratory Rate Blood Pressure 128/83 132/80 138/85 Blood Pressure [Right Arm] Blood Pressure Mean [Right Arm] Blood Pressure Source [Right Arm] Blood Pressure Position [Right Arm] 02 Sat by Pulse Oximetry 95 95 95 Oxygen Delivery Method 11/15/23 00:45 Temperature Temperature Source Pulse Rate 71 Pulse Rate [Left Radial] Respiratory Rate Blood Pressure 141/77 H Blood Pressure [Right Arm] Blood Pressure Mean [Right Arm] Blood Pressure Source [Right Arm] Blood Pressure Position [Right Arm] 02 Sat by Pulse Oximetry 95 Oxygen Delivery Method Lab Data Lab Results 11/14/23 20:57: WBC 14.5 H, RBC 4.69, Hgb 14.2, Hct 43.7, MCV 93.2, MCH 30.3, MCHC 32.5, RDW 12.9, Plt Count 292, MPV 9.0, Neut % (Auto) 72.6, Lymph % (Auto) 18.8, [place] % (Auto) 5.7, Eos % (Auto) 2.3, Baso % (Auto) 0.5, Neut # (Auto) 10.5 H, Lymph # (Auto) 2.7, [place] # (Auto) 0.8, Eos # (Auto) 0.3, Baso # (Auto) 0.1, Sodium 136, Potassium 3.7, Chloride 106, Carbon Dioxide 24, Anion Gap 9.7, BUN 6 L, Creatinine 0.50 L, Estimated Creat Clear 162, Estimated GFR 134, Est GFR ( Amer) 162, Glucose 115 H, Calcium 8.8, Total Bilirubin 0.8, AST 68 H, A LT 236 H, Alkaline Phosphatase 242 H, Total Protein 7.1, Albumin 4.0, Globulin 3.1, Albumin/Globulin Ratio 1.3, Lipase 57 Orders (Tests/Meds): ED MEDICATIONS Generic Name Dose Route Start Last Admin Trade Name Freq PRN Reason Stop Dose Admin Sodium Chloride 10 ml 11/14/23 21:38 11/14/23 21:38 Sodium Chloride 0.9% 10ml Syr (Rad Only) IV 12/14/23 21:37 10 ml NEEDED PRN Administration Maintain IV Site Discontinued Medications Generic Name Dose Route Start Last Admin Trade Name Freq PRN Reason Stop Dose Admin Hydromorphone HCl 0.5 mg 11/15/23 02:02 11/15/23 02:20 Hydromorphone 2mg/Ml Syringe IV 11/15/23 02:03 0.5 mg ONCE ONE Administration Lactated Ringer's 1,000 mls @ 999 mls/hr 11/14/23 21:00 11/14/23 21:04 Lactated Ringer's 1000 Ml Bag IV 11/14/23 22:00 999 mls/hr .Q1H1M ANNITA Administration Iopamidol 75 ml 11/14/23 21:38 11/14/23 21:38 Iopamidol-370 (76%);100ml Bottle IV 11/14/23 21:39 75 ml ONCE ONE Administration Morphine Sulfate 4 mg 11/14/23 20:51 11/14/23 21:04 Morphine 4mg/Ml Syringe IV 11/14/23 20:52 4 mg ONCE ONE Administration Morphine Sulfate 4 mg 11/14/23 22:18 11/14/23 22:33 Morphine 4mg/Ml Syringe IV 11/14/23 22:19 4 mg ONCE ONE Administration Ondansetron HCl 4 mg 11/14/23 20:51 11/14/23 21:04 Ondansetron 4mg/2ml Vial IV 11/14/23 20:52 4 mg ONCE ONE Administration Ondansetron HCl 4 mg 11/14/23 22:18 11/14/23 22:32 Ondansetron 4mg/2ml Vial IV 11/14/23 22:19 4 mg ONCE ONE Administration ORDERS Category Date Time Status CT abdomen pelvis w con Stat Cat Scan 11/14/23 20:53 Completed CBC w/Auto Diff [Complete Blood Count Auto Diff] Stat Lab 11/14/23 20:57 Completed CMP [Comprehensive Metabolic Panel] Stat Lab 11/14/23 20:57 Completed Lipase Stat Lab 11/14/23 20:57 Completed Medical Decision Narrative: 42-year-old with above history and physical with epigastric tenderness following recent ERCP most likely post ERCP pancreatitis. Other things on the differential would be infection bleeding perforation etc. Will get a contrasted CT scan for further evaluation addition to labs IV fluids pain medicine nausea medicine have been administered will reassess Mensah: Upon my assumption of care patient is stable and pain is currently managed after having received multiple doses of morphine. I reviewed labs which do not demonstrate findings of pancreatitis, transaminitis is improving, alk phos stable from previous, bilirubin improved. CT abdomen pelvis was pending at the time of me assuming care of this patient. I personally interpreted CT abdomen pelvis and do not appreciate abscess or free fluid. No findings of perforation. See radiology read for final interpretation which does, and stent being in place and pneumobilia which is expected with her recent procedure. On reassessment patient continues having significant pain. Dilaudid administered. I attempted to discuss this patient with [facility] since that is where she had her procedure initially performed, however GI is not available on the weekend. Instead, GI was consulted. I discussed this case including patient's improving labs and imaging findings but persistent intractable pain with Dr. Gomez. At this time she is recommending no further advanced procedure, she recommends admission for intractable pain and MRCP the patient does not show signs of improvement. ECG personally interpreted does not demonstrate acute cardiac abnormality, sinus rhythm, normal axis, normal MD and QTc, rate 67, no STEMI, stable from ECG on 11/08. Patient is amenable to this plan. Hospitalist consulted, we discussed labs, imaging, intractable pain. He recommended amylase and GGT be ordered. Patient accepted for admission. Critical Care <Juan C Mensah MD - Last Filed: 11/15/23 02:37> Critical Care Time Critical Care Time: No
[2023-11-14] MEDS: ONDANSETRON 4MG/2ML VIAL 4 MG IV ×2 (21:04→22:32)
[2023-11-14] MEDS: MORPHINE 4MG/ML SYRINGE 4 MG IV ×2 (21:04→22:33)
[2023-11-14] MEDS: LACTATED RINGERS 1000ML 1,000 ML 999 ML IV (21:04)
[2023-11-14 21:13] LABS: Basophils # 0.1 K/mm3 (0-0.2); Basophils % 0.5 % (0.1-2.0); Chloride 106 mmol/L (98-107); Eosinophils # 0.3 K/mm3 (0.0-0.4); Eosinophils % 2.3 % (0.1-12.0); Hematocrit 43.7 % (37.0-47.0); Hemoglobin 14.2 g/dL (12.2-16.2); Lymphocytes # 2.7 K/mm3 (0.7-4.5); Lymphocytes % 18.8 % (10-50); Mean Corpuscular HGB Conc 32.5 g/dL (31.8-35.4); Mean Corpuscular Hemoglobin 30.3 pg (27.0-31.2); Mean Corpuscular Volume 93.2 fl (81-99); Monocytes # 0.8 K/mm3 (0.1-1.0); Monocytes % 5.7 % (1.7-9.3); Neutrophils # 10.5 K/mm3 (1.8-7.8); Neutrophils % 72.6 % (37.0-80.0); Platelet Count 292 K/mm3 (142-424); Red Blood Count 4.69 M/mm3 (4.20-5.40); Red Cell Distribution Width 12.9 % (11.5-17.5); Sodium 136 mmol/L (136-145); White Blood Count 14.5 K/mm3 (4.8-10.8)
[2023-11-14 21:14] LABS: Potassium 3.7 mmoL/L (3.5-5.1)
[2023-11-14 21:16] LABS: Alanine Aminotransferase 236 U/L (12-78); Albumin/Globulin Ratio 1.3 (1.1-1.8); Alkaline Phosphatase 242 U/L (38-126); Anion Gap 9.7 mEq/L (5-15); Aspartate Amino Transferase 68 U/L (14-36); Bilirubin,Total 0.8 mg/dl (0.2-1.3); Blood Urea Nitrogen 6 mg/dl (7-17); Carbon Dioxide 24 mmol/L (22.0-30.0); Creatinine Clearance Estimated 162 mL/min (50-200); Estimated Glomerular Filt Rate 134 ml/min (>60); GFR (African American) 162 ML/MIN (>60); Globulin 3.1 g/dL (1.3-3.2); Lipase 57 U/L (23-300); Total Protein,Serum 7.1 g/dl (6.3-8.2)
[2023-11-14 21:17] LABS: Calcium 8.8 mg/dl (8.4-10.2); Glucose 115 mg/dl (74-100)
--- NOTE | 2023-11-14 21:34 | PC.NURSE ---
Call to [facility] to request medical records from ERCP, spoke with Zaynab, ARPITA filled out, signed by patient and faxed, fax confirmation received. Awaiting records at this time
[2023-11-14] MEDS: SODIUM CHLORIDE 0.9% 10ML SYR (RAD ONLY) 10 ML IV (21:38)
[2023-11-14] MEDS: IOPAMIDOL-370 (76%);100ML BOTTLE 75 ML IV (21:38)
[2023-11-15] VITALS (12 sets, daily range): BP systolic 98–141; BP diastolic 70–85; PULSE 60–85; RESP 16; TEMP 36.7–37.1; O2SAT 95–98; BMI 29.8
--- NOTE | 2023-11-15 01:11 | PC.NURSE ---
called [facility] for [facility] transfer to [facility], we are supposed to be receiving a call back.
--- NOTE | 2023-11-15 01:51 | PC.NURSE ---
No GI coverage @ [facility], they are reaching out to [facility] and will return call
--- NOTE | 2023-11-15 02:04 | PC.NURSE ---
Call to [facility], for consult with GI, awaiting return call
--- NOTE | 2023-11-15 02:14 | PC.NURSE ---
RECEIVED CALL BACK FROM DR HARO
[2023-11-15] MEDS: HYDROMORPHONE 2MG/ML SYRINGE 0.5 MG IV (02:20)
--- NOTE | 2023-11-15 02:26 | ECG_ITS ---
APPROVED REPORT Exam: Resting ECG HR:67 bpm ECG Measurements Heart Rate 67 AXES [place] 157 P 55 QRSd 77 QRS 25 QT 421 T 49 QTc 436 Conclusion SINUS RHYTHM NORMAL ECG UNCONFIRMED REPORT Electronically signed by : HOMAR SHOEMAKER, 11/16/2023 04:28:58
[2023-11-15 02:47] LABS: Amylase 45 U/L (30-110); Gamma Glutamyl Transpeptidase 271 U/L (12-43)
--- NOTE | 2023-11-15 03:15 | PC.NURSE ---
pt arrived to overflow unit @03:00 via wheelchair
[2023-11-15] MEDS: SODIUM CHLORIDE 0.9% 25ML BAG 25 ML IV (03:27)
[2023-11-15] MEDS: PROMETHAZINE HCL 25MG/ML 1ML VIAL 6.25 MG IV (03:27)
[2023-11-15] MEDS: LACTATED RINGERS 1000ML 1,000 ML 75 ML IV (03:28)
[2023-11-15] MEDS: NIFEdipine 10MG CAPSULE 10 MG PO (03:59)
[2023-11-15] MEDS: CEFTAZIDIME IV (04:04)
[2023-11-15] MEDS: SODIUM CHLORIDE 0.9% IV (04:04)
--- NOTE | 2023-11-15 04:38 | EXP.HP ---
History of Present Illness *Admission Date: 11/15/23 *Reason for visit:: Nausea and vomiting significant abdominal pain radiating to the back *History of present illness: Ms. Morris is here with her . They noted a history that she has had pancreatitis about 6 or 7 times since her teenage years. Normally would resolve within 2 to 3 days. Patient was noted to having pain gallstones and had her gallbladder removed on 10/15/2023 patient started to improve went home on Lortab but began to have significant pain after that period of time. She was also seen in our ER on 11/03/2023 for bronchitis and prescribed azithromycin. Patient then returned on 11/09/2023, because her abdominal pain began, she then drove by private car to [place] and had an ERCP done . Per her history 3 gallstones were removed and a stent was placed in the common bile duct . and since then has had significant pain and has come in for evaluation tonight. Patient has continued with pain until receiving narcotic pain medication, morphine had very little effect Dilaudid helped. But patient remains nauseated and at times vomit. Zofran did not appear to be helping so once admitted was given Phenergan iv and at the present time appears to be successful. [facility] Disclaimer: The information contained in this section may have been updated after the patient was seen, as this information can be updated by other users. Medical History (Updated 11/15/23 @ 05:06 by Jomar Gutierrez APRN) Sinusitis Gallstones BMI 29.0-29.9,adult Sinusitis Body mass index (BMI) of 30.0 to 30.9 in adult Cervicogenic headache Migraine Sinus tachycardia PFO (patent foramen ovale) Chest pain Establishing care with new doctor, encounter for BMI 31.0-31.9,adult Chest pain at rest Diabetes Asthma Migraine Anxiety and depression SIRS (systemic inflammatory response syndrome) Ovarian cyst Vertigo Sinusitis Abdominal pain Sciatica Surgical History History of ERCP H/O tubal ligation Family History Father Cancer Diabetes Mother Hypertension FHx: mental illness COPD (chronic obstructive pulmonary disease) Social History (Reviewed 11/15/23 @ 04:46 by NIMESH Simms Smoking Status: Never smoker alcohol intake: never substance use type: denies use current occupational status: employed Travel in the last 8 weeks: None household members: spouse and children housing: house marital status: number of children: 3 current occupation: [employer] Review of Systems Review of Systems Review of systems:: pertinent systems reviewed and negative unless documented below Review of systems (narrative): Patient examined and interviewed on stretcher in the emergency room is in the room also, Constitutional Constitutional: Reports as per HPI Eyes Eyes: Reports as per HPI ENT Ears, Nose, Mouth, and Throat: Reports as per HPI *Cardiovascular Cardiovascular: Reports as per HPI *Respiratory Respiratory: Reports as per HPI *Gastrointestinal Gastrointestinal: Reports as per HPI, Reports abdominal pain and Reports cramping *Genitourinary Genitourinary: Reports system reviewed and no additional complaints, except as documented *Musculoskeletal Musculoskeletal: Reports system reviewed and no additional complaints, except as documented Integumentary/Breasts Skin/Breast: Reports system reviewed and no additional complaints, except as documented *Neurologic Neurologic: Reports system reviewed and no additional complaints, except as documented Psychiatric Psychiatric: Reports system reviewed and no additional complaints, except as documented Endocrine Endocrine: Reports system reviewed and no additional complaints, except as documented Hematologic/Lymphatic Hematologic/Lymphatic: Reports system reviewed and no additional complaints, except as documented Allergic/Immunologic Allergic/Immunologic: Reports system reviewed and no additional complaints, except as documented Meds Home Medications and Allergies Home Medications ?Medication ?Instructions ?Recorded ?Confirmed ?Type sertraline 50 mg tablet (Zoloft) 50 mg PO DAILY 09/17/23 11/15/23 History atogepant 60 mg tablet (Qulipta) 60 mg PO DAILY 11/15/23 11/15/23 History ubrogepant 50 mg tablet (Ubrelvy) 50 mg PO DAILYP PRN Migraine 11/15/23 11/15/23 History Headache New Prescriptions to Start Prescriptions: Allergies Allergy/AdvReac Type Severity Reaction Status Date / Time No Known Allergies Allergy Verified 10/22/23 08:01 Exam Data for Last 24 hours Vital signs and Labs for Last 24 Hours: Temp Pulse Resp BP Pulse Ox O2 Del Method 98.2 F 60 16 115/71 97 Room Air 11/15/23 04:00 11/15/23 04:00 11/15/23 04:00 11/15/23 04:00 11/15/23 04:00 11/15/23 04:35 Laboratory Results - last 24 hr 11/14/23 20:57: WBC 14.5 H, RBC 4.69, Hgb 14.2, Hct 43.7, MCV 93.2, MCH 30.3, MCHC 32.5, RDW 12.9, Plt Count 292, MPV 9.0, Neut % (Auto) 72.6, Lymph % (Auto) 18.8, [place] % (Auto) 5.7, Eos % (Auto) 2.3, Baso % (Auto) 0.5, Neut # (Auto) 10.5 H, Lymph # (Auto) 2.7, [place] # (Auto) 0.8, Eos # (Auto) 0.3, Baso # (Auto) 0.1, Sodium 136, Potassium 3.7, Chloride 106, Carbon Dioxide 24, Anion Gap 9.7, BUN 6 L, Creatinine 0.50 L, Estimated Creat Clear 162, Estimated GFR 134, Est GFR ( Amer) 162, Glucose 115 H, Calcium 8.8, Total Bilirubin 0.8, GGT 271 H, AST 68 H, ALT 236 H, Alkaline Phosphatase 242 H, Total Protein 7.1, Albumin 4.0, Globulin 3.1, Albumin/Globulin Ratio 1.3, Amylase 45, Lipase 57 I & O for Last 24 hours: Intake & Output 11/12/23 11/13/23 11/14/23 11/15/23 23:59 23:59 23:59 23:59 Weight 71.668 kg 71.668 kg Radiology Reports for the Last 24 Hours: Abdominal scan showed stent but no signs of biliary dilatation, no cause for pain was identified from testing Constitutional Constitutional: moderate distress Comments: The patient is very cooperative and less the pain hits her she does become nauseated very quickly, but when laying on stretcher most of the time is comfortable *Routine HEENT Exam Head: Present normocephalic and atraumatic Eye: Present EOMI and PERRL ENT: Present mucous membranes moist *Routine Neck Exam Neck: Present supple and full ROM Routine Chest/Breast/Axilla Exam Comments: No complaints voiced, no pain found upon palpation of chest wall or back *Routine Respiratory Exam Respiratory: Present CTA bilaterally, normal respiratory effort, able to speak in complete sentences and symmetric chest movement *Routine Cardiovascular Exam Cardiovascular: Present RRR, Normal S1 and Normal S2 Comments: EKG examined in the room shows normal sinus rhythm *Routine Abdominal Exam Abdominal: Present soft, normoactive bowel sounds and tenderness Comments: While examining patient some palpation pain found in the upper right quadrant but not severe, *Routine Rectal Exam Rectal:: deferred *Routine Genitalia Exam Genitalia:: deferred *Routine Extremities Exam Comments: Patient is able to stand and walk without assistance no deficits noted Routine Back/Spine/Pelvis Exam Back/Spine: Present full ROM and CVA tenderness Comments: Exam on palpation found no back pain patient moves well without assistance *Routine Skin Exam Skin: Present intact Comments: Skin [place] warm and dry, with brisk capillary refill to all distal extremity *Routine Neurological Exam Neurological: Present alert, oriented X3 and CN II-XII intact Comments: No deficits found Routine Psychiatric Exam Psychiatric: Present normal affect, normal thought process, cooperative, good insight and good judgment H&P: Result Impressions 1. Abdominal pain after gallbladder removed and recent ERCP. elevated white count. Nausea and vomiting. Imaging and Cardiology CT scan - abdomen: Additional comments: No acute findings on CT scan of the abdomen or the chest Assessment and Plan *Assessment and plan (1) Intractable abdominal pain: Status: Acute Category: Medical Code(s): R10.9 - Unspecified abdominal pain (2) Elevated white blood cell count: Status: Acute Category: Medical Code(s): D72.829 - Elevated white blood cell count, unspecified (3) Nausea and vomiting: Status: Acute Category: Medical Code(s): R11.2 - Nausea with vomiting, unspecified (4) Abnormal liver function test: Status: Acute Category: Medical Code(s): R79.89 - Other specified abnormal findings of blood chemistry (5) Cholangitis: Status: Acute Category: Medical Code(s): K83.09 - Other cholangitis Plan Ms. Morris is a 42-year-old female with recent ERCP, extraction of retained CBD stones, and stenting of CBD. Presented with abdominal pain. Discussion with the ER overnight, request admission for treatment of her pain and further monitoring and evaluation for possible pancreatitis, cholangitis, sphincter of Oddi dysfunction. Medicine agreed to admit for further management. Will GI see the patient in the morning. Poor tolerance of clear liquids today. Responding well with pain to Toradol however. Problems addressed as follows: Transaminitis Abdominal pain and nausea -Status post ERCP and removal of common bile duct stones. Differential includes cholangitis, CBD spasm, gastroenteritis, pancreatitis. -Initially started on ceftazidime, will transition to cefepime 2 g every 12 hours empirically as patient had a white count of 14.5 on presentation -GI consult see patient Thursday -Pain responding to Toradol, increase to 30 mg as needed every 6 hours -Consider MRCP Thursday if no improvement in pain. - GGT elevated at 271, AST 68, ALT 236, alk phos 242. Will monitor serial CMP, CBC, magnesium and GGT for possible improvement. suspect elevated secondary to procedure, however cannot rule out inflammation or infection Nausea and vomiting: Zofran was not controlling the vomiting so 1 dose of Phenergan IV was given and patient at present is resting comfortably. Will continue clear liquids as she sees fit to take. Continue home Zoloft 50 mg daily for mood Full code
[2023-11-15] MEDS: KETOROLAC 30MG/ML VIAL 15 MG IV (06:51)
--- NOTE | 2023-11-15 07:45 | PC.NURSE ---
Rounded on patient, patient resting at this time.
[2023-11-15 07:57] LABS: Lactic Acid 1.1 mmol/L (0.7-2.1)
[2023-11-15] MEDS: FAMOTIDINE 20MG TABLET 20 MG PO ×2 (09:13→20:01)
[2023-11-15] MEDS: SERTRALINE 50MG TABLET 50 MG PO (09:13)
[2023-11-15] MEDS: ENOXAPARIN 40MG/0.4ML SYRINGE 40 MG SQ (09:13)
[2023-11-15] MEDS: ATOGEPANT 60 MG 1 EACH PO (09:52)
[2023-11-15] MEDS: ONDANSETRON 4MG/2ML VIAL 4 MG IV ×2 (11:06→22:21)
[2023-11-15] MEDS: KETOROLAC 30MG/ML VIAL 30 MG IV (12:26)
[2023-11-15] MEDS: CEFEPIME HCL 2 GM in 0.9 % SODIUM CHLORIDE 100 ML IV ×2 (13:11→20:01)
[2023-11-15] MEDS: FAMOTIDINE 20MG TABLET 40 MG PO (13:15)
--- NOTE | 2023-11-15 15:58 | PC.NURSE ---
pt has rested t/o shift, has been ambulatory to and from , has remained on room air, has complained of nausea once, and pain once and was treated per APR, abdomen tender in middle, no other complaints this shift
[2023-11-15] MEDS: SODIUM CHLORIDE 0.9% 10ML VIAL 10 ML IV (20:01)
[2023-11-15] MEDS: PANTOPRAZOLE 40MG VIAL 40 MG IV (20:01)
[2023-11-16] VITALS: BP 119/71; PULSE 65; RESP 16; TEMP 36.8; O2SAT 95
[2023-11-16] MEDS: KETOROLAC 30MG/ML VIAL 30 MG IV (01:29)
[2023-11-16 04:00] VITALS: BP 120/78; PULSE 76; RESP 16; TEMP 36.9; O2SAT 95; BMI 29.8
--- NOTE | 2023-11-16 05:11 | PC.NURSE ---
Alert and oriented. Complained of pain one time, treated apr. Complained of nausea one time, treated per apr. Abdomen soft and tender. Has rested throughout the night. Ambulated to the restroom independently. Call light in reach.
[2023-11-16 07:00] LABS: Basophils % 0.3 % (0.1-2.0); Eosinophils # 0.4 K/mm3 (0.0-0.4); Eosinophils % 3.6 % (0.1-12.0); Hematocrit 42.1 % (37.0-47.0); Hemoglobin 13.2 g/dL (12.2-16.2); Lymphocytes # 1.9 K/mm3 (0.7-4.5); Mean Corpuscular HGB Conc 31.4 g/dL (31.8-35.4); Mean Corpuscular Volume 95.3 fl (81-99); Mean Platelet Volume 9.7 fl (7.4-10.4); Monocytes # 0.7 K/mm3 (0.1-1.0); Monocytes % 6.2 % (1.7-9.3); Neutrophils # 7.6 K/mm3 (1.8-7.8); Neutrophils % 71.9 % (37.0-80.0); Platelet Count 261 K/mm3 (142-424); Red Blood Count 4.42 M/mm3 (4.20-5.40); White Blood Count 10.5 K/mm3 (4.8-10.8)
[2023-11-16 07:05] LABS: Albumin Level 3.3 g/dl (3.5-5.0); Chloride 106 mmol/L (98-107); Sodium 137 mmol/L (136-145)
[2023-11-16 07:06] LABS: Potassium 3.8 mmoL/L (3.5-5.1)
[2023-11-16 07:08] LABS: Alanine Aminotransferase 145 U/L (12-78); Albumin/Globulin Ratio 1.2 (1.1-1.8); Alkaline Phosphatase 156 U/L (38-126); Anion Gap 4.8 mEq/L (5-15); Aspartate Amino Transferase 50 U/L (14-36); Bilirubin,Total 0.8 mg/dl (0.2-1.3); Blood Urea Nitrogen 9 mg/dl (7-17); Carbon Dioxide 30 mmol/L (22.0-30.0); Creatinine Clearance Estimated 162 mL/min (50-200); Estimated Glomerular Filt Rate 134 ml/min (>60); GFR (African American) 162 ML/MIN (>60); Globulin 2.8 g/dL (1.3-3.2); Total Protein,Serum 6.1 g/dl (6.3-8.2)
[2023-11-16 07:09] LABS: Calcium 8.8 mg/dl (8.4-10.2); Glucose 93 mg/dl (74-100)
[2023-11-16 08:00] VITALS: BP 99/62; PULSE 96; RESP 16; TEMP 36.6; O2SAT 96
[2023-11-16] MEDS: SERTRALINE 50MG TABLET 50 MG PO (08:15)
[2023-11-16] MEDS: ENOXAPARIN 40MG/0.4ML SYRINGE 40 MG SQ (08:16)
[2023-11-16] MEDS: ATOGEPANT 60 MG 1 EACH PO (08:16)
[2023-11-16] MEDS: CEFEPIME HCL 2 GM in 0.9 % SODIUM CHLORIDE 100 ML IV (08:16)
[2023-11-16] MEDS: FAMOTIDINE 20MG TABLET 20 MG PO (08:16)
--- NOTE | 2023-11-16 15:07 | P.CONS_ITS ---
History of Present Illness *Admission Date: 11/15/23 *Reason for visit:: Post ERCP pain *History of present illness: Ms. Morris is a 42-year-old female admitted for post ERCP pain without post ERCP pancreatitis. The patient is clinically improving. The patient did have an ERCP for choledocholithiasis and had plastic biliary stent placement. Ms. Morris is here with her . They noted a history that she has had pancreatitis about 6 or 7 times since her teenage years. Normally would resolve within 2 to 3 days. Patient was noted to having pain gallstones and had her gallbladder removed on 10/15/2023 patient started to improve went home on Lortab but began to have significant pain after that period of time. She was also seen in our ER on 11/03/2023 for bronchitis and prescribed azithromycin. Patient then returned on 11/09/2023, because her abdominal pain began, she then drove by private car to [place] and had an ERCP done . Per her history 3 gallstones were removed and a stent was placed in the common bile duct . and since then has had significant pain and has come in for evaluation tonight. Patient has continued with pain until receiving narcotic pain medication, morphine had very little effect Dilaudid helped. But patient remains nauseated and at times vomit. Zofran did not appear to be helping so once admitted was given Phenergan iv and at the present time appears to be successful. [facility] Disclaimer: The information contained in this section may have been updated after the patient was seen, as this information can be updated by other users. Medical History (Updated 11/16/23 @ 15:13 by Delonte Castro MD) Sinusitis Gallstones BMI 29.0-29.9,adult Sinusitis Body mass index (BMI) of 30.0 to 30.9 in adult Cervicogenic headache Migraine Sinus tachycardia PFO (patent foramen ovale) Chest pain Establishing care with new doctor, encounter for BMI 31.0-31.9,adult Chest pain at rest Diabetes Asthma Migraine Anxiety and depression SIRS (systemic inflammatory response syndrome) Ovarian cyst Vertigo Sinusitis Abdominal pain Sciatica Surgical History History of ERCP H/O tubal ligation Family History Father Cancer Diabetes Mother Hypertension FHx: mental illness COPD (chronic obstructive pulmonary disease) Social History Smoking Status: Never smoker alcohol intake: never substance use type: denies use current occupational status: employed Travel in the last 8 weeks: None household members: spouse and children housing: house marital status: number of children: 3 current occupation: [employer] Review of Systems Review of Systems Review of systems (narrative): The patient reports no fever, chills, night sweats, jaundice, abdominal swelling. She does have some resolving abdominal pain. *Neurologic Neurologic: Reports system reviewed and no additional complaints, except as documented Meds Home Medications and Allergies Home Medications ?Medication ?Instructions ?Recorded ?Confirmed ?Type sertraline 50 mg tablet (Zoloft) 50 mg PO DAILY 09/17/23 11/15/23 History atogepant 60 mg tablet (Qulipta) 60 mg PO DAILY 11/15/23 11/15/23 History ubrogepant 50 mg tablet (Ubrelvy) 50 mg PO DAILYP PRN Migraine 11/15/23 11/15/23 History Headache New Prescriptions to Start Prescriptions: Allergies Allergy/AdvReac Type Severity Reaction Status Date / Time No Known Allergies Allergy Verified 10/22/23 08:01 Exam (Inpt) Vital signs and Labs for Last 24 Hours: Temp Pulse Resp BP Pulse Ox O2 Del Method 97.8 F 96 H 16 99/62 L 96 Room Air 11/16/23 08:00 11/16/23 08:00 11/16/23 08:00 11/16/23 08:00 11/16/23 08:00 11/16/23 13:00 Laboratory Results - last 24 hr 11/16/23 05:26: WBC 10.5 D, RBC 4.42, Hgb 13.2, Hct 42.1, MCV 95.3, MCH 30.0, M CHC 31.4 L, RDW 13.0, Plt Count 261, MPV 9.7, Neut % (Auto) 71.9, Lymph % (Auto) 18.0, [place] % (Auto) 6.2, Eos % (Auto) 3.6, Baso % (Auto) 0.3, Neut # (Auto) 7.6, Lymph # (Auto) 1.9, [place] # (Auto) 0.7, Eos # (Auto) 0.4, Baso # (Auto) 0.0, Sodium 137, Potassium 3.8, Chloride 106, Carbon Dioxide 30, Anion Gap 4.8 L, BUN 9 D, Creatinine 0.50 L, Estimated Creat Clear 162, Estimated GFR 134, Est GFR ( Amer) 162, Glucose 93, Calcium 8.8, Total Bilirubin 0.8, AST 50 H D, A LT 145 H D, Alkaline Phosphatase 156 H, Total Protein 6.1 L, Albumin 3.3 L D, Globulin 2.8, Albumin/Globulin Ratio 1.2 I & O for Labs for Last 24 Hours: Intake & Output 11/13/23 11/14/23 11/15/23 11/16/23 23:59 23:59 23:59 23:59 Intake Total 280 / 680 1360 / 1360 Output Total 300 / 300 0 / 0 Balance -20 / 380 1360 / 1360 Weight 158 lb 158 lb 0.014 oz 158 lb 0.014 oz GI: Present soft and tenderness (Minimal right upper quadrant tenderness) Comments:: Normoactive bowel sounds, soft, minimal tenderness in the right upper quadrant, no rebound or guarding, no masses, no hernias Results Labs 11/16/23 05:26 11/16/23 05:26 Labs: Laboratory Results - last 24 hr 11/16/23 05:26: WBC 10.5 D, RBC 4.42, Hgb 13.2, Hct 42.1, MCV 95.3, MCH 30.0, M CHC 31.4 L, RDW 13.0, Plt Count 261, MPV 9.7, Neut % (Auto) 71.9, Lymph % (Auto) 18.0, [place] % (Auto) 6.2, Eos % (Auto) 3.6, Baso % (Auto) 0.3, Neut # (Auto) 7.6, Lymph # (Auto) 1.9, [place] # (Auto) 0.7, Eos # (Auto) 0.4, Baso # (Auto) 0.0, Sodium 137, Potassium 3.8, Chloride 106, Carbon Dioxide 30, Anion Gap 4.8 L, BUN 9 D, Creatinine 0.50 L, Estimated Creat Clear 162, Estimated GFR 134, Est GFR ( Amer) 162, Glucose 93, Calcium 8.8, Total Bilirubin 0.8, AST 50 H D, A LT 145 H D, Alkaline Phosphatase 156 H, Total Protein 6.1 L, Albumin 3.3 L D, Globulin 2.8, Albumin/Globulin Ratio 1.[address] scan - abdomen: report reviewed Assessment and Plan *Assessment and plan (1) Status post endoscopic retrograde cholangiopancreatography: Status: Acute Category: Surgical Code(s): Z98.890 - Other specified postprocedural states (2) Right upper quadrant abdominal pain: Status: Acute Category: Medical Code(s): R10.11 - Right upper quadrant pain Plan 1. Post ERCP abdominal pain without post ERCP pancreatitis. She has had the CAT scan from 11/13 and I suspect that there may have been trauma to the biliary system. I do not have the ERCP report but difficult stones can present some difficulty and when these are large stones, they can result in some trauma to the biliary tree when they are extracted. It is important to size the stones so that the biliary orifice/sphincter site is sized properly via sphincterotomy or sphincteroplasty. When stones are extracted, there can be enough impaction trauma to result in fairly significant pain from biliary duct injury. Given the fact that a stent was placed, it is clear that the patient still has common bile duct stones and that these were likely larger stones. This is an indicator that it was a more complicated case since smaller stones are very readily cleared without requiring biliary stent. Most often for bigger stones, we do use a temporary fully covered Wallstent rather than a plastic stent which allows for more rapid clearance of the choledocholithiasis and protects the rutledge of the biliary system. Her CAT scan did not show any evidence of abscess or perforation. She is resolving presently. I would recommend repeat ERCP in 6 to 8 weeks. I have given her the option of whether she would like to go back to [place] but she can schedule this here at [facility] with me. She agreed that she would prefer to stay here. I will remove the stent and clear the biliary system. I did state that we could go ahead and get her an appointment on the schedule for early to mid December for outpatient ERCP. The patient can be discharged to home as long as she tolerates bland diet. The patient's white blood cell count is improving and her liver chemistries are clearly improved as well. There is certainly no evidence of cholangitis, perforation or abscess. She will not require outpatient antibiotics.
--- NOTE | 2023-11-16 15:36 | PC.NURSE ---
aox4, tolerating room air without difficulty. pt has denied n/v. has not c/o pain this shift. ambulating to restroom independently.
[2023-11-16 16:00] VITALS: BP 122/80; PULSE 96; RESP 16; TEMP 36.6; O2SAT 98
--- NOTE | 2023-11-16 16:56 | EXP.DC.SUM ---
General Admission date:: 11/15/23 Discharge date: 11/16/23 HPI HPI HPI: Ms. Morris is a 42-year-old female admitted for post ERCP pain without post ERCP pancreatitis. The patient is clinically improving. The patient did have an ERCP for choledocholithiasis and had plastic biliary stent placement. Ms. Morris is here with her . They noted a history that she has had pancreatitis about 6 or 7 times since her teenage years. Normally would resolve within 2 to 3 days. Patient was noted to having pain gallstones and had her gallbladder removed on 10/15/2023 patient started to improve went home on Lortab but began to have significant pain after that period of time. She was also seen in our ER on 11/03/2023 for bronchitis and prescribed azithromycin. Patient then returned on 11/09/2023, because her abdominal pain began, she then drove by private car to [facility] and had an ERCP done . Per her history 3 gallstones were removed and a stent was placed in the common bile duct . and since then has had significant pain and has come in for evaluation tonight. Patient has continued with pain until receiving narcotic pain medication, morphine had very little effect Dilaudid helped. But patient remains nauseated and at times vomit. Zofran did not appear to be helping so once admitted was given Phenergan iv and at the present time appears to be successful. Hospital Course Hospital Course Hospital Course: Ms. Morris is a 42-year-old female with recent ERCP, extraction of retained CBD stones, and stenting of CBD. Presented with abdominal pain. Discussion with the ER overnight, request admission for treatment of her pain and further monitoring and evaluation for possible pancreatitis, cholangitis, sphincter of Oddi dysfunction. Medicine agreed to admit for further management. Symptoms improved overnight. Evaluated by GI. Symptoms most consistent with post ERCP abdominal pain. No signs of pancreatitis or cholangitis. Stable to discharge home with close outpatient follow-up. Problems addressed as follows: Post ERCP abdominal pain Transaminitis Abdominal pain and nausea -Status post ERCP and removal of common bile duct stones. Differential includes cholangitis, CBD spasm, gastroenteritis, pancreatitis, post ERCP pain. Symptoms showed improvement with continued decrease in liver enzymes by morning of discharge. GI was consulted, recommended repeat ERCP in 6 to 8 weeks to make further no further stones or sludge in her CBD. Recommend continuing with bland diet which was tolerated during admission. Given normalization of her white count, no clear evidence of infection. Recommend no continuation of antibiotics at this time. Will continue a few days of Toradol as NSAIDs have helped significantly with her pain. As she is tolerating p.o. intake. Pain managed. Will discharge home. Continue omeprazole for GERD at discharge. Nausea and vomiting: Zofran was not controlling the vomiting so 1 dose of Phenergan IV was given and patient at present is resting comfortably. Able to tolerate advancement of diet. Nausea and vomiting resolved. Continue home Zoloft 50 mg daily for mood Total time spent on discharge 32 minutes in counseling, discussion with subspecialist, documentation, chart review, and direct care with patient. Exam Data for Last 24 hours Vital signs and Labs for Last 24 Hours: Temp Pulse Resp BP Pulse Ox O2 Del Method 98 F 96 H 16 122/80 98 Room Air 11/16/23 16:00 11/16/23 16:00 11/16/23 16:00 11/16/23 16:00 11/16/23 16:00 11/16/23 15:00 Laboratory Results - last 24 hr 11/16/23 05:26: WBC 10.5 D, RBC 4.42, Hgb 13.2, Hct 42.1, MCV 95.3, MCH 30.0, MCHC 31.4 L, RDW 13.0, Plt Count 261, MPV 9.7, Neut % (Auto) 71.9, Lymph % (Auto) 18.0, [place] % (Auto) 6.2, Eos % (Auto) 3.6, Baso % (Auto) 0.3, Neut # (Auto) 7.6, Lymph # (Auto) 1.9, [place] # (Auto) 0.7, Eos # (Auto) 0.4, Baso # (Auto) 0.0, Sodium 137, Potassium 3.8, Chloride 106, Carbon Dioxide 30, Anion Gap 4.8 L, BUN 9 D, Creatinine 0.50 L, Estimated Creat Clear 162, Estimated GFR 134, Est GFR ( Amer) 162, Glucose 93, Calcium 8.8, Total Bilirubin 0.8, AST 50 H D, ALT 145 H D, Alkaline Phosphatase 156 H, Total Protein 6.1 L, Albumin 3.3 L D, Globulin 2.8, Albumin/Globulin Ratio 1.2 I & O for Last 24 hours: Intake & Output 11/13/23 11/14/23 11/15/23 11/16/23 23:59 23:59 23:59 23:59 Intake Total 280 / 680 1360 / 1360 Output Total 300 / 300 0 / 0 Balance -20 / 380 1360 / 1360 Weight 71.668 kg 71.668 kg 71.668 kg Constitutional Constitutional: no acute distress *Routine HEENT Exam Head: Present normocephalic Eye: Present EOMI and PERRL ENT: Present mucous membranes moist *Routine Neck Exam Neck: Present supple; Absent lymphadenopathy *Routine Respiratory Exam Respiratory: Present CTA bilaterally *Routine Cardiovascular Exam Cardiovascular: Present RRR *Routine Abdominal Exam Abdominal: Present soft, normoactive bowel sounds and tenderness (Epigastric) *Routine Rectal Exam Patient deferred: visual exam *Routine Exam Patient deferred: external exam *Routine Extremities Exam Extremities: Absent cyanosis, clubbing or edema *Routine Skin Exam Skin: Present warm; Absent rash *Routine Neurological Exam Neurological: Present alert and oriented X3 Results Data Completed and Pending Labs on day of discharge: Labs from last 24 hours 11/16/23 05:26 WBC 10.5 D RBC 4.42 Hgb 13.2 Hct 42.1 MCV 95.3 MCH 30.0 MCHC 31.4 L RDW 13.0 Plt Count 261 MPV 9.7 Neut % (Auto) 71.9 Lymph % (Auto) 18.0 [place] % (Auto) 6.2 Eos % (Auto) 3.6 Baso % (Auto) 0.3 Neut # (Auto) 7.6 Lymph # (Auto) 1.9 [place] # (Auto) 0.7 Eos # (Auto) 0.4 Baso # (Auto) 0.0 Sodium 137 Potassium 3.8 Chloride 106 Carbon Dioxide 30 Anion Gap 4.8 L BUN 9 D Creatinine 0.50 L Estimated Creat Clear 162 Estimated GFR 134 Est GFR ( Amer) 162 Glucose 93 Calcium 8.8 Total Bilirubin 0.8 AST 50 H D ALT 145 H D Alkaline Phosphatase 156 H Total Protein 6.1 L Albumin 3.3 L D Globulin 2.8 Albumin/Globulin Ratio 1.2 DS: Diagnosis Discharge Diagnosis (1) Status post endoscopic retrograde cholangiopancreatography: Status: Acute Code(s): Z98.890 - Other specified postprocedural states (2) Right upper quadrant abdominal pain: Status: Acute Code(s): R10.11 - Right upper quadrant pain Meds Home Medications and Allergies Home Medications ?Medication ?Instructions ?Recorded ?Confirmed ?Type sertraline 50 mg tablet (Zoloft) 50 mg PO DAILY 09/17/23 11/15/23 History atogepant 60 mg tablet (Qulipta) 60 mg PO DAILY 11/15/23 11/15/23 History ubrogepant 50 mg tablet (Ubrelvy) 50 mg PO DAILYP PRN Migraine 11/15/23 11/15/23 History Headache ketorolac 10 mg tablet 10 mg PO Q8H PRN pain 4 days #12 11/16/23 Rx tabs omeprazole 40 mg capsule,delayed 40 mg PO DAILY #20 caps 11/16/23 Rx release New Prescriptions to Start Prescriptions: ketorolac Simone May omeprazole Simone May Allergies Allergy/AdvReac Type Severity Reaction Status Date / Time No Known Allergies Allergy Verified 10/22/23 08:01 Discharge Plan Disposition Patient Disposition: Home, Self-Care Condition: Fair Follow up Plan Follow up with: Delonte Castro MD [Staff Physician] - 01/07/24 2:30 pm (ERCP) Glendy Brar APRN [Primary Care Provider] - Enter time for follow up Prescriptions/Medication Reconciliation: New omeprazole 40 mg capsule,delayed release(DR/EC) 40 mg PO DAILY Qty: 20 0RF ketorolac 10 mg tablet 10 mg PO Q8H PRN (Reason: pain) 4 Days Qty: 12 0RF Rx Instructions: maximum total duration of 5 days from all oral, intranasal, or parenteral formulations. Tolerated IV formulation during admission Continued sertraline [Zoloft] 50 mg tablet 50 mg PO DAILY Patient Comments: TAKE ONE TABLET BY MOUTH EVERY DAY Ubrelvy 50 mg tablet 50 mg PO DAILYP PRN (Reason: Migraine Headache) Patient Comments: FOR MIGRAINE; TAKE 1 TABLET BY MOUTH AT ONSET OF SYMPTOMS. MAY REPEAT AFTER TWO HOURS IF SYMPTOMS PERSIST. MAX 200 MG IN 24 HOURS. Qulipta 60 mg tablet 60 mg PO DAILY Patient Comments: TAKE ONE TABLET BY MOUTH EVERY DAY Problem Reconciliation Problems Reviewed?: Yes Patient Discharge Instructions ACTIVITY: Continue current activity DIET: continue same diet Patient Instructions: DI for Abdominal Pain-Adult Print Language: Wolof Providers Primary Care Provider: Glendy Brar Admit Provider: Simone May Attending Provider: Simone May
--- NOTE | 2023-11-17 14:06 | CARE MANAGER ---
Spoke with patient for post-discharge phone interview, patient has new medications and is aware of follow-up appointment.
== END 2023-11-16 18:08 | disposition home or self-care (01) ==
LOC: ER 11-15 02:21 → ICU 11-15 03:07
PROVIDERS: Emergency Medicine; Nurse Practitioner Family; Admitting Provider Internal Medicine Adolescent Medicine; Emergency Provider Student in an Organized Health Care Education/Training Program; PCP Nurse Practitioner Family; Visit Provider Internal Medicine Adolescent Medicine
DX: R10.11 Right upper quadrant pain (principal); R11.2 Nausea with vomiting, unspecified; D72.829 Elevated white blood cell count, unspecified; K83.09 Other cholangitis; Z98.890 Other specified postprocedural states; R74.01 Elevation of levels of liver transaminase levels
CPT/HCPCS: 36415; 74177; 80053; 82150; 82977; 83605; 83690; 85025; 93005; 99253; 99285; G0378; J0713; J1170; J1650; J1885; J2270; J2405; J2550; J7120; Q9967

== ENCOUNTER 2023-12-08 12:08 | Outpatient (CLI) | payer BC, SELFPAY ==
[2023-12-08 12:52] LABS: Basophils # 0.1 K/mm3 (0-0.2); Basophils % 0.6 % (0.1-2.0); Eosinophils # 0.2 K/mm3 (0.0-0.4); Eosinophils % 2.3 % (0.1-12.0); Hemoglobin 14.1 g/dL (12.2-16.2); Lymphocytes # 2.4 K/mm3 (0.7-4.5); Lymphocytes % 22.3 % (10-50); Mean Corpuscular HGB Conc 34.5 g/dL (31.8-35.4); Mean Corpuscular Hemoglobin 30.6 pg (27.0-31.2); Mean Corpuscular Volume 88.7 fl (81-99); Mean Platelet Volume 9.2 fl (7.4-10.4); Monocytes # 0.6 K/mm3 (0.1-1.0); Monocytes % 5.2 % (1.7-9.3); Neutrophils # 7.5 K/mm3 (1.8-7.8); Neutrophils % 69.6 % (37.0-80.0); Platelet Count 242 K/mm3 (142-424); Red Blood Count 4.62 M/mm3 (4.20-5.40); Red Cell Distribution Width 12.6 % (11.5-17.5); White Blood Count 10.8 K/mm3 (4.8-10.8)
[2023-12-08 13:39] LABS: Alanine Aminotransferase 17 U/L (12-78); Albumin Level 3.8 g/dl (3.5-5.0); Albumin/Globulin Ratio 1.4 (1.1-1.8); Alkaline Phosphatase 126 U/L (38-126); Amylase 45 U/L (30-110); Aspartate Amino Transferase 25 U/L (14-36); Bilirubin,Total 0.5 mg/dl (0.2-1.3); Blood Urea Nitrogen 11 mg/dl (7-17); Calcium 9.5 mg/dl (8.4-10.2); Carbon Dioxide 26 mmol/L (22.0-30.0); Chloride 104 mmol/L (98-107); Estimated Glomerular Filt Rate 133 ml/min (>60); GFR (African American) 161 ML/MIN (>60); Globulin 2.7 g/dL (1.3-3.2); Glucose 130 mg/dl (74-100); Lipase 122 U/L (23-300); Sodium 135 mmol/L (136-145); Total Protein,Serum 6.5 g/dl (6.3-8.2)
== END 2023-12-08 23:59 | disposition home or self-care (01) ==
LOC: LAB 12:09
PROVIDERS: PCP Nurse Practitioner Family; Visit Provider Nurse Practitioner Family
DX: K85.90 Acute pancreatitis without necrosis or infection, unspecified (principal); R11.0 Nausea; R10.11 Right upper quadrant pain; Z98.890 Other specified postprocedural states
CPT/HCPCS: 36415; 80053; 82150; 83690; 85025

== ENCOUNTER 2024-01-07 16:01 | Observation (INO) | payer BC, SELFPAY ==
[2024-01-05 13:42] VITALS: BMI 30.2
[2024-01-07] VITALS (14 sets, daily range): BP systolic 99–139; BP diastolic 61–84; PULSE 61–98; RESP 16–18; TEMP 36.3–36.9; O2SAT 95–100; BMI 30.2; BMI 31.9
[2024-01-07 13:27] LABS: Urine Pregnancy, HCG Qual. Negative (Negative)
--- NOTE | 2024-01-07 13:52 | P.PNANES_ITS ---
[facility] Disclaimer: The information contained in this section may have been updated after the patient was seen, as this information can be updated by other users. Medical History PFO (patent foramen ovale) Sinusitis Gallstones BMI 29.0-29.9,adult Sinusitis Body mass index (BMI) of 30.0 to 30.9 in adult Cervicogenic headache Migraine Sinus tachycardia PFO (patent foramen ovale) Chest pain Establishing care with new doctor, encounter for BMI 31.0-31.9,adult Chest pain at rest Asthma Migraine Anxiety and depression SIRS (systemic inflammatory response syndrome) Ovarian cyst Vertigo Sinusitis Abdominal pain Sciatica Surgical History Hx laparoscopic cholecystectomy History of ERCP H/O tubal ligation Family History Father Cancer lung Diabetes Mother Hypertension FHx: mental illness COPD (chronic obstructive pulmonary disease) Social History Smoking Status: Never smoker alcohol intake: current alcohol intake frequency: holidays/special occasions only substance use type: denies use current occupational status: employed Travel in the last 8 weeks: None household members: spouse and children housing: house marital status: number of children: 3 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 Anesthesia Checklist Patient Identification Patient Identification: Arm Band and Family Structural Data Admitted From: Home Planned Operative Procedure/s: ERCP Consent for Planned Operative Procedure(s) Verified: Yes Verified Documents: Surgical Consent and History and Physical NPO Status Verified Time NPO: 00:00 Additional verifications Patient : No Anesthesia Reactions: No Hx Blood Transfusions: No Blood Transfusion Reaction: No Cephalosporin Allergy: No Previous Colonoscopy: Yes Airway Assessment Mallampati Score:: Class I C-Spine Mobility Assessed: Yes Dentition: Good Dentition Neurological Assessment Level of Consciousness: Awake, Alert, Appropriate and Follows Commands Hx Seizures: No Numbness or tingling in extremities: No Anesthesia Plan Anesthesia Risk discussed: Yes ASA Class: II Anesthesia Type: MAC Preoperative Comments Pre-Operative Comments: PFO with complications. ERCP to remove stent.
--- NOTE | 2024-01-07 14:07 | P.HP_ITS ---
History of Present Illness *Admission Date: 01/07/24 *Reason for visit:: History of choledocholithiasis and biliary stent *History of present illness: Mrs. Morris is a 43-year-old female who is here for clearance of the biliary system. The patient did have cholecystectomy on October 15, 2023. She also had subsequent choledocholithiasis and went to the emergency department on 11/03/2023 but returned on 11/09/2023 with abdominal pain. ERCP was performed and there were [address] Hayward removed some of the stones and placed a biliary stent. She is here for removal of stent and clearance of the biliary system. The examination is deemed medically necessary for ERCP. The patient has been seen, interviewed and examined prior to the procedure by both myself and the anesthesia provider. [facility] Disclaimer: The information contained in this section may have been updated after the patient was seen, as this information can be updated by other users. Medical History (Updated 01/07/24 @ 14:09 by Delonte Castro II, MD) PFO (patent foramen ovale) Sinusitis Gallstones BMI 29.0-29.9,adult Sinusitis Body mass index (BMI) of 30.0 to 30.9 in adult Cervicogenic headache Migraine Sinus tachycardia PFO (patent foramen ovale) Chest pain Establishing care with new doctor, encounter for BMI 31.0-31.9,adult Chest pain at rest Asthma Migraine Anxiety and depression SIRS (systemic inflammatory response syndrome) Ovarian cyst Vertigo Sinusitis Abdominal pain Sciatica Surgical History Hx laparoscopic cholecystectomy History of ERCP H/O tubal ligation Family History Father Cancer lung Diabetes Mother Hypertension FHx: mental illness COPD (chronic obstructive pulmonary disease) Social History Smoking Status: Never smoker alcohol intake: current alcohol intake frequency: holidays/special occasions only substance use type: denies use current occupational status: employed Travel in the last 8 weeks: None household members: spouse and children housing: house marital status: number of children: 3 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 Other Medical History Have you received the Flu Vaccine for this season: No Have you received the Pneumonia Vaccine: No Review of Systems Review of Systems Review of systems (narrative): Negative *Cardiovascular Comments: Negative *Gastrointestinal Comments: Negative *Genitourinary Comments: Negative *Musculoskeletal Comments: Negative *Neurologic Comments: Negative Meds Home Medications and Allergies Home Medications ?Medication ?Instructions ?Recorded ?Confirmed ?Type sertraline 50 mg tablet (Zoloft) 50 mg PO DAILY 09/17/23 01/05/24 History atogepant 60 mg tablet (Qulipta) 60 mg PO DAILY 11/15/23 01/05/24 History ubrogepant 50 mg tablet (Ubrelvy) 50 mg PO DAILYP PRN Migraine 11/15/23 01/05/24 History Headache omeprazole 40 mg capsule,delayed 40 mg PO DAILY #30 caps 12/03/23 01/05/24 Rx release Nurtec ODT 75 mg disintegrating 75 mg PO Q OTHER DAY PRN migraine 12/13/23 01/05/24 Rx tablet (rimegepant) headache #30 tabs New Prescriptions to Start Prescriptions: Allergies Allergy/AdvReac Type Severity Reaction Status Date / Time No Known Allergies Allergy Verified 01/07/24 13:15 Exam Data for Last 24 hours Vital signs and Labs for Last 24 Hours: Temp Pulse Resp BP Pulse Ox O2 Del Method 97.3 F L 98 H 18 117/81 96 Room Air 01/07/24 13:18 01/07/24 13:18 01/07/24 13:18 01/07/24 13:18 01/07/24 13:18 01/07/24 13:18 Laboratory Results - last 24 hr 01/07/24 13:15: Urine HCG, Qual Negative I & O for Last 24 hours: Intake & Output 01/04/24 01/05/24 01/06/24 01/07/24 23:59 23:59 23:59 23:59 Weight 160 lb 160 lb *Routine HEENT Exam Head: Present normocephalic Eye: Present EOMI and PERRL ENT: Present mucous membranes moist *Routine Neck Exam Neck: Present supple *Routine Respiratory Exam Respiratory: Present CTA bilaterally *Routine Cardiovascular Exam Cardiovascular: Present RRR *Routine Abdominal Exam Abdominal: Present soft and normoactive bowel sounds; Absent tenderness *Routine Rectal Exam Rectal:: deferred *Routine Genitalia Exam Genitalia:: deferred *Routine Extremities Exam Extremities: Absent cyanosis, clubbing or edema *Routine Skin Exam Skin: Present warm; Absent rash *Routine Neurological Exam Neurological: Present alert and oriented X3 Assessment and Plan *Assessment and plan (1) Choledocholithiasis: Status: Acute Category: Medical Code(s): K80.50 - Calculus of bile duct without cholangitis or cholecystitis without obstruction (2) Status post endoscopic retrograde cholangiopancreatography: Status: Acute Category: Surgical Code(s): Z98.890 - Other specified postprocedural states Plan A/P: 1. Choledocholithiasis and prior partial clearance of CBD with biliary stent placement is the preprocedural diagnosis. ERCP is performed to remove stent and provide clearance of CBD. The patient will be anesthetized/sedated using MAC sedation. The patient has been seen and examined. Cardiac and lung assessment prior to the examination is stable. Proceed with planned ERCP
--- NOTE | 2024-01-07 14:10 | P.PCN_ITS ---
[facility] Procedure Note Date: 01/07/24 Time: 15:06 Procedure Note:: ERCP procedure Report: Endoscopic retrograde cholangiopancreatography with removal of biliary stent, extension of biliary sphincterotomy, sphincteroplasty (TTS balloon dilation) and balloon extraction Endoscopist: Delonte Castro II, MD Referring Physician: SALVADOR Hurd Date of Procedure: January 07, 2024 Equipment: Olympus 180 side viewing endoscope duodenoscope Sedation: MAC sedation Indication: Mrs. Morris is a 43-year-old female who is here for ERCP with biliary stent removal and clearance of the biliary system after she had an initial ERCP on 11/13 or 11/15/2023. The initial ERCP with Dr. Constantine Hayward showed 3 biliary stones which were removed. Dr. Hayward did place a biliary stent. She did return with abdominal pain and was admitted to the [facility]. She was admitted with post ERCP abdominal pain without post ERCP pancreatitis. She was discharged in good condition and I did recommend that we bring her back at 6 to 8 weeks with removal of the plastic biliary stent and clearance of the biliary system. Presently she has no abdominal complaints. Procedure: Prior to the procedure, a history and physical exam was performed, and patient's medications and allergies were reviewed. The risks, benefits and alternatives of the sedation and procedure were discussed with the patient. All questions were answered and informed consent was obtained. The patient was brought to the fluoroscopic radiology room. Patient identification and proposed procedure were verified by the physician and the nurse. The patient was placed in a swimmer's position between left lateral decubitus and prone position and the scope was passed under direct vision. Throughout the procedure, the patient's blood pressure, pulse, and oxygen saturations were monitored continuously. The ERCP was accomplished without difficulty. The patient tolerated the procedure well. Findings: The duodenoscope was passed directly into the upper esophagus and advanced to the second portion of the duodenum. The esophagus was normal. There was some bile reflux in the stomach with mild reactive gastropathy. The bulb, first portion and second portion of duodenum were normal. There was a small adjacent duodenal diverticulum which was periampullary. The plastic biliary stent was identified and grasped with a snare and removed in a retrograde fashion out the oropharynx. The scope was then advanced again into the esophagus and passed to the second portion of the duodenum. The ampulla was well-visualized and the biliary system was freely cannulated. There was some sludge type filling defect in the biliary system but no large stones. Next, extension of the biliary sphincterotomy was performed with the sphincterotome of approximately 2 or 3 mm. Next, the dilating balloon was utilized to do ampullary orifice dilation/distal CBD dilation to 8 mm with a TTS hydrostatic balloon (HurriCaine balloon). Lastly, a sweeping balloon was placed at the hilum 3 times and swept to the biliary system with the passage of small amount of sludge and rodriguez bile. There was complete clearance of the biliary system and the procedure was then ended. The pancreatic duct was not cannulated intentionally. Impression: 1. Sludge/minor choledocholithiasis status post stent removal, small extension of biliary sphincterotomy, sphincteroplasty and balloon sweep with complete clearance of the biliary system Plan: I will discuss the findings with the patient and family. She will not need further follow-up ERCP.
--- NOTE | 2024-01-07 15:14 | SUR.OPER ---
1512- disposable distal tip broken and disposed of.
[2024-01-07] MEDS: ONDANSETRON 4MG/2ML VIAL 4 MG IV ×2 (15:25→20:18)
--- NOTE | 2024-01-07 15:28 | FL_ITS ---
PROCEDURE INFORMATION: Exam: FL or XR Cholangiogram And/Or Pancreatography; Interpretation Only Exam date and time: 01/07/2024 3:28 PM Age: 43 years old Clinical indication: Device placement; Other: Ercp; Additional info: Ercp. 1.1 kelli. 30.98 mgy TECHNIQUE: Imaging protocol: Cholangiogram and/or pancreatography. Image interpretation only. The interpreting radiologist was not present during procedure. Total images: 1 COMPARISON: No relevant prior studies available. FINDINGS: Procedure summary: See separate operative report for detailed procedure summary. Procedural imaging: A single image was taken during the procedure. IMPRESSION: Fluoroscopy provided for cholangiography.
[2024-01-07] MEDS: LORazepam 2MG/ML VIAL 1 MG IV (15:36)
[2024-01-07] MEDS: DICYCLOMINE 20 MG/2ML VIAL 10 MG IM (15:58)
[2024-01-07] MEDS: LORazepam 2MG/ML VIAL 2 MG IV (15:59)
--- NOTE | 2024-01-07 16:07 | SUR.PHASEII ---
1550: Decision to admit for observation per Dr. Castro. Pt still reporting pain at a 5-6 in upper abdomen. 1600: Report given to Karlos Meyers RN. 1607: Pt transported to room 203 per Martha Ling RN and Aviva Cox RN.
--- NOTE | 2024-01-07 16:19 | P.HP_ITS ---
History of Present Illness *Admission Date: 01/07/24 *Reason for visit:: abdominal pain *History of present illness: Mrs. Morris is a 43-year-old female who recently underwent cholecystectomy in September of this year. She subsequently had choledocholithiasis and underwent ERCP with 3 gallstones removed and placement of a biliary stent in [place]. She had pain afterward that necessitated inpatient management and gradually improved. She presented today as an outpatient for repeat ERCP, removal of stent, and sphincterotomy. After her procedure, patient had some pain. Concern for high risk of returning to the ER after her procedure given her recent history and recurrent symptoms with her abdomen. Medicine consulted for admission and observation overnight. With no emesis. Stable on room air. Afebrile. On evaluation, appears comfortable after receiving antiemetics and anxiety medication. at bedside, able to obtain history and review of systems from him. Does not appear in any acute distress at this time. Tolerated removal of stent well today. Mild sludge drained from common bile duct. [facility] Disclaimer: The information contained in this section may have been updated after the patient was seen, as this information can be updated by other users. Medical History PFO (patent foramen ovale) Sinusitis Gallstones BMI 29.0-29.9,adult Sinusitis Body mass index (BMI) of 30.0 to 30.9 in adult Cervicogenic headache Migraine Sinus tachycardia PFO (patent foramen ovale) Chest pain Establishing care with new doctor, encounter for BMI 31.0-31.9,adult Chest pain at rest Asthma Migraine Anxiety and depression SIRS (systemic inflammatory response syndrome) Ovarian cyst Vertigo Sinusitis Abdominal pain Sciatica Surgical History Hx laparoscopic cholecystectomy History of ERCP H/O tubal ligation Family History Father Cancer Diabetes Mother Hypertension FHx: mental illness COPD (chronic obstructive pulmonary disease) Social History Smoking Status: Never smoker alcohol intake: current alcohol intake frequency: holidays/special occasions only substance use type: denies use current occupational status: employed Travel in the last 8 weeks: None household members: spouse and children housing: house marital status: number of children: 3 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 Other Medical History Have you received the Flu Vaccine for this season: No Have you received the Pneumonia Vaccine: No Review of Systems Review of Systems Review of systems (narrative): 14 point review of systems performed, pertinent positives and negatives as per HPI Meds Home Medications and Allergies Home Medications ?Medication ?Instructions ?Recorded ?Confirmed ?Type sertraline 50 mg tablet (Zoloft) 50 mg PO DAILY 09/17/23 01/05/24 History atogepant 60 mg tablet (Qulipta) 60 mg PO DAILY 11/15/23 01/05/24 History ubrogepant 50 mg tablet (Ubrelvy) 50 mg PO DAILYP PRN Migraine 11/15/23 01/05/24 History Headache omeprazole 40 mg capsule,delayed 40 mg PO DAILY #30 caps 12/03/23 01/05/24 Rx release Nurtec ODT 75 mg disintegrating 75 mg PO Q OTHER DAY PRN migraine 12/13/23 01/05/24 Rx tablet (rimegepant) headache #30 tabs New Prescriptions to Start Prescriptions: Allergies Allergy/AdvReac Type Severity Reaction Status Date / Time No Known Allergies Allergy Verified 01/07/24 16:43 Exam Data for Last 24 hours Vital signs and Labs for Last 24 Hours: Temp Pulse Resp BP Pulse Ox O2 Del Method 97.5 F L 69 16 130/73 98 Room Air 01/07/24 15:12 01/07/24 16:02 01/07/24 16:02 01/07/24 16:02 01/07/24 16:02 01/07/24 16:02 Laboratory Results - last 24 hr 01/07/24 13:15: Urine HCG, Qual Negative I & O for Last 24 hours: Intake & Output 01/04/24 01/05/24 01/06/24 01/07/24 23:59 23:59 23:59 23:59 Weight 72.575 kg 72.575 kg Constitutional Constitutional: no acute distress, obese and cooperative *Routine HEENT Exam Head: Present normocephalic Eye: Present EOMI and PERRL ENT: Present mucous membranes moist *Routine Neck Exam Neck: Present supple *Routine Respiratory Exam Respiratory: Present CTA bilaterally; Absent rhonchi, wheezes or crackles *Routine Cardiovascular Exam Cardiovascular: Present RRR *Routine Abdominal Exam Abdominal: Present soft and normoactive bowel sounds; Absent tenderness *Routine Rectal Exam Rectal:: deferred *Routine Genitalia Exam Genitalia:: deferred *Routine Extremities Exam Extremities: Absent cyanosis, clubbing or edema *Routine Skin Exam Skin: Present intact and warm; Absent rash *Routine Neurological Exam Neurological: Present alert, oriented X3 and moving all extremities; Absent altered mental status Assessment and Plan *Assessment and plan (1) Choledocholithiasis: Status: Acute Category: Medical Code(s): K80.50 - Calculus of bile duct without cholangitis or cholecystitis without obstruction (2) Recurrent acute pancreatitis: Status: Acute Category: Medical Code(s): K85.90 - Acute pancreatitis without necrosis or infection, unspecified (3) Nausea: Status: Acute Category: Medical Code(s): R11.0 - Nausea (4) Obesity (BMI 30-39.9): Status: Acute Category: Medical Code(s): E66.9 - Obesity, unspecified (5) Anxiety and depression: Status: Chronic Category: Medical Code(s): F41.9 - Anxiety disorder, unspecified; F32.A - Depression, unspecified Plan 43-year-old female with recent cholecystectomy, history of choledocholithiasis and stent placement. Presented for removal of biliary stent and sphincterotomy. Discussed case with nutrition counselor, request admission for monitoring overnight and treatment of pain given recent complications from cholecystectomy and stent placement. I agreed to admit for further management. Appears stable at this time. Will observe overnight. Problems addressed as follows: Status post ERCP with removal of biliary stent, extension of biliary sphincterotomy, sphincteroplasty (TTS balloon dilation) and balloon extraction. Tolerated procedure well but did have some mild pain afterward. -Slowly advance diet. - Bentyl 10 mg p.o. 4 times a day as needed for abdominal pain. Continue Toradol 15 mg IV as needed every 6 hours for pain. Received Ativan after procedure, responded well to anxiolytic component. Continue Zofran 4 mg every 8 hours as needed for nausea. Pantoprazole 40 mg p.o. tonight -CV C, CMP, lipase, magnesium ordered for the morning. Depression/anxiety: Continue home Zoloft 50 mg daily If does well overnight and able to tolerate diet, anticipate discharge tomorrow Full code Full liquid diet Holding on anticoagulation due to independent mobility and Brian score of 0
[2024-01-07] MEDS: KETOROLAC 30MG/ML VIAL 15 MG IV (20:18)
[2024-01-07] MEDS: PANTOPRAZOLE 40MG TABLET 40 MG PO (21:21)
[2024-01-08] VITALS: BP 129/74; PULSE 100; RESP 18; TEMP 36.9; O2SAT 97
--- NOTE | 2024-01-08 02:32 | EXP.EVENT.NO ---
Patient reported pain to the nurse earlier in the shift. .Having taking care of her in the past used the same medication exam exam abdominal pain post stent removal plan. Used Zofran and Toradol IV. , Checked on the patient a couple hours later she was sound asleep
[2024-01-08 04:00] VITALS: BP 108/63; PULSE 117; RESP 18; TEMP 38.3; O2SAT 95; BMI 31.9
[2024-01-08] MEDS: KETOROLAC 30MG/ML VIAL 15 MG IV (04:07)
[2024-01-08 05:53] VITALS: TEMP 37.7
[2024-01-08] MEDS: ACETAMINOPHEN 325MG TAB 650 MG PO (06:59)
[2024-01-08 07:15] LABS: Alanine Aminotransferase 249 U/L (12-78); Albumin Level 3.6 g/dl (3.5-5.0); Albumin/Globulin Ratio 1.3 (1.1-1.8); Alkaline Phosphatase 166 U/L (38-126); Anion Gap 8.6 mEq/L (5-15); Aspartate Amino Transferase 284 U/L (14-36); Bilirubin,Total 1.4 mg/dl (0.2-1.3); Blood Urea Nitrogen 7 mg/dl (7-17); Calcium 8.8 mg/dl (8.4-10.2); Carbon Dioxide 26 mmol/L (22.0-30.0); Chloride 104 mmol/L (98-107); Creatinine Clearance Estimated 144 mL/min (50-200); Estimated Glomerular Filt Rate 108 ml/min (>60); GFR (African American) 131 ML/MIN (>60); Globulin 2.7 g/dL (1.3-3.2); Glucose 114 mg/dl (74-100); Lipase 48 U/L (23-300); Magnesium 1.6 mg/dl (1.6-2.3); Potassium 3.6 mmoL/L (3.5-5.1); Sodium 135 mmol/L (136-145); Total Protein,Serum 6.3 g/dl (6.3-8.2)
[2024-01-08 07:24] LABS: Basophils % 0.2 % (0.1-2.0); Hematocrit 38.4 % (37.0-47.0); Hemoglobin 13.6 g/dL (12.2-16.2); Lymphocytes # 0.8 K/mm3 (0.7-4.5); Lymphocytes % 4.3 % (10-50); Mean Corpuscular HGB Conc 35.4 g/dL (31.8-35.4); Mean Corpuscular Hemoglobin 30.9 pg (27.0-31.2); Mean Corpuscular Volume 87.1 fl (81-99); Mean Platelet Volume 8.8 fl (7.4-10.4); Monocytes # 0.8 K/mm3 (0.1-1.0); Neutrophils # 17.8 K/mm3 (1.8-7.8); Neutrophils % 91.5 % (37.0-80.0); Platelet Count 204 K/mm3 (142-424); Red Blood Count 4.41 M/mm3 (4.20-5.40); Red Cell Distribution Width 12.8 % (11.5-17.5); White Blood Count 19.4 K/mm3 (4.8-10.8)
[2024-01-08 07:28] LABS: MANUAL DIFFERENTIAL MANUAL DIFFERENTIAL (MANUAL DIFF)
--- NOTE | 2024-01-08 07:47 | HMH.PHAINT1 ---
Pharmacy Intervention Comments: Home medication list verified using list from outpatient pharmacy and pt interview
[2024-01-08 07:49] VITALS: BP 104/61; PULSE 120; RESP 16; TEMP 37.8; O2SAT 95
--- NOTE | 2024-01-08 07:51 | P.DS_ITS ---
General Admission date:: 01/07/24 Discharge date: 01/08/24 HPI HPI HPI: Mrs. Morris is a 43-year-old female who recently underwent cholecystectomy in September of this year. She subsequently had choledocholithiasis and underwent ERCP with 3 gallstones removed and placement of a biliary stent in [place]. She had pain afterward that necessitated inpatient management and gradually improved. She presented today as an outpatient for repeat ERCP, removal of stent, and sphincterotomy. After her procedure, patient had some pain. Concern for high risk of returning to the ER after her procedure given her recent history and recurrent symptoms with her abdomen. Medicine consulted for admission and observation overnight. With no emesis. Stable on room air. Afebrile. On evaluation, appears comfortable after receiving antiemetics and anxiety medication. at bedside, able to obtain history and review of systems from him. Does not appear in any acute distress at this time. Tolerated removal of stent well today. Mild sludge drained from common bile duct. Hospital Course Hospital Course Hospital Course: 43-year-old female with recent cholecystectomy, history of choledocholithiasis and stent placement. Presented for removal of biliary stent and sphincterotomy. Discussed case with airfreight operations agent, request admission for monitoring overnight and treatment of pain given recent complications from cholecystectomy and stent placement. I agreed to admit for further management. Remained stable overnight. Able to advance diet. Minimal pain overnight. Discharged home with outpatient follow-up plan with GI. Problems addressed as follows: Status post ERCP with removal of biliary stent, extension of biliary sphincterotomy, sphincteroplasty (TTS balloon dilation) and balloon extraction. Tolerated procedure well but did have some mild pain afterward. -Advance diet. Tolerated well. Administered Toradol and Bentyl with good control of pain. Received a dose of Ativan after procedure which helped her rest. Did well overnight. Repeat labs in the morning with bilirubin 1.4, AST 284, ALT 249, alkaline phosphatase 166. Kidney function remained normal. Reactive leukocytosis the following morning but no concern for infection. Stable to discharge home and advance to regular diet. Depression/anxiety: Continue home Zoloft 50 mg daily No acute events overnight. No significant pain. Mild expected bump in liver enzymes, tolerating p.o. intake. Plan for close follow-up with GI as an outpatient. Stable to discharge home. Exam Data for Last 24 hours Vital signs and Labs for Last 24 Hours: Temp Pulse Resp BP Pulse Ox O2 Del Method 100.0 F H 120 H 16 104/61 L 95 Room Air 01/08/24 07:49 01/08/24 07:49 01/08/24 07:49 01/08/24 07:49 01/08/24 07:49 01/08/24 07:49 Laboratory Results - last 24 hr 01/07/24 13:15: Urine HCG, Qual Negative 01/08/24 06:41: WBC 19.4 H, RBC 4.41, Hgb 13.6, Hct 38.4, MCV 87.1, MCH 30.9, MCHC 35.4, RDW 12.8, Plt Count 204, MPV 8.8, Neut % (Auto) 91.5 H, Lymph % (Auto) 4.3 L, [place] % (Auto) 4.0, Eos % (Auto) 0.0 L, Baso % (Auto) 0.2, Neut # (Auto) 17.8 H, Lymph # (Auto) 0.8, [place] # (Auto) 0.8, Eos # (Auto) 0.0, Baso # (Auto) 0.0, Sodium 135 L, Potassium 3.6, Chloride 104, Carbon Dioxide 26, Anion Gap 8.6, BUN 7, Creatinine 0.60, Estimated Creat Clear 144, Estimated GFR 108, Est GFR ( Amer) 131, Glucose 114 H, Calcium 8.8, Magnesium 1.6, Total Bilirubin 1.4 H, AST 284 H, ALT 249 H, Alkaline Phosphatase 166 H, Total Protein 6.3, Albumin 3.6, Globulin 2.7, Albumin/Globulin Ratio 1.3, Lipase 48 I & O for Last 24 hours: Intake & Output 01/05/24 01/06/24 01/07/24 01/08/24 23:59 23:59 23:59 23:59 Intake Total 180 / 180 Output Total 0 / 0 0 / 0 Balance 0 / 180 180 / 180 Weight 72.575 kg 76.742 kg 76.793 kg Constitutional Constitutional: no acute distress *Routine HEENT Exam Head: Present normocephalic Eye: Present EOMI and PERRL ENT: Present mucous membranes moist *Routine Neck Exam Neck: Present supple; Absent lymphadenopathy *Routine Respiratory Exam Respiratory: Present CTA bilaterally *Routine Cardiovascular Exam Cardiovascular: Present RRR *Routine Abdominal Exam Abdominal: Present soft and normoactive bowel sounds; Absent tenderness *Routine Rectal Exam Patient deferred: visual exam *Routine Exam Patient deferred: external exam *Routine Extremities Exam Extremities: Absent cyanosis, clubbing or edema *Routine Skin Exam Skin: Present warm; Absent rash *Routine Neurological Exam Neurological: Present alert and oriented X3 Results Data Completed and Pending Labs on day of discharge: Labs from last 24 hours 01/08/24 01/07/24 06:41 13:15 WBC 19.4 H RBC 4.41 Hgb 13.6 Hct 38.4 MCV 87.1 MCH 30.9 MCHC 35.4 RDW 12.8 Plt Count 204 MPV 8.8 Neut % (Auto) 91.5 H Lymph % (Auto) 4.3 L [place] % (Auto) 4.0 Eos % (Auto) 0.0 L Baso % (Auto) 0.2 Neut # (Auto) 17.8 H Lymph # (Auto) 0.8 [place] # (Auto) 0.8 Eos # (Auto) 0.0 Baso # (Auto) 0.0 Sodium 135 L Potassium 3.6 Chloride 104 Carbon Dioxide 26 Anion Gap 8.6 BUN 7 Creatinine 0.60 Estimated Creat Clear 144 Estimated GFR 108 Est GFR ( Amer) 131 Glucose 114 H Calcium 8.8 Magnesium 1.6 Total Bilirubin 1.4 H AST 284 H ALT 249 H Alkaline Phosphatase 166 H Total Protein 6.3 Albumin 3.6 Globulin 2.7 Albumin/Globulin Ratio 1.3 Lipase 48 Urine HCG, Qual Negative DS: Diagnosis Discharge Diagnosis (1) Choledocholithiasis: Status: Acute Code(s): K80.50 - Calculus of bile duct without cholangitis or cholecystitis without obstruction (2) Recurrent acute pancreatitis: Status: Acute Code(s): K85.90 - Acute pancreatitis without necrosis or infection, unspecified (3) Nausea: Status: Acute Code(s): R11.0 - Nausea (4) Obesity (BMI 30-39.9): Status: Acute Code(s): E66.9 - Obesity, unspecified (5) Anxiety and depression: Status: Chronic Code(s): F41.9 - Anxiety disorder, unspecified; F32.A - Depression, unspecified Meds Home Medications and Allergies Home Medications ?Medication ?Instructions ?Recorded ?Confirmed ?Type sertraline 50 mg tablet (Zoloft) 50 mg PO DAILY 09/17/23 01/05/24 History atogepant 60 mg tablet (Qulipta) 60 mg PO DAILY 11/15/23 01/05/24 History ubrogepant 50 mg tablet (Ubrelvy) 50 mg PO DAILYP PRN Migraine 11/15/23 01/05/24 History Headache omeprazole 40 mg capsule,delayed 40 mg PO DAILY #30 caps 12/03/23 01/05/24 Rx release Nurtec ODT 75 mg disintegrating 75 mg PO Q OTHER DAY PRN migraine 12/13/23 01/05/24 Rx tablet (rimegepant) headache #30 tabs New Prescriptions to Start Prescriptions: Allergies Allergy/AdvReac Type Severity Reaction Status Date / Time No Known Allergies Allergy Verified 01/07/24 16:43 Discharge Plan Disposition Patient Disposition: Home, Self-Care Condition: Good Follow up Plan Follow up with: Delonte Castro II, MD [Staff Physician] - 01/26/24 3:00 pm Prescriptions/Medication Reconciliation: Continued omeprazole 40 mg capsule,delayed release(DR/EC) 40 mg PO DAILY Qty: 30 2RF Nurtec ODT 75 mg tablet,disintegrating 75 mg PO Q OTHER DAY PRN (Reason: migraine headache) Qty: 30 5RF Rx Instructions: 1 tablet as needed for episodic migraine. sertraline [Zoloft] 50 mg tablet 50 mg PO DAILY Patient Comments: TAKE ONE TABLET BY MOUTH EVERY DAY Ubrelvy 50 mg tablet 50 mg PO DAILYP PRN (Reason: Migraine Headache) Patient Comments: FOR MIGRAINE; TAKE 1 TABLET BY MOUTH AT ONSET OF SYMPTOMS. MAY REPEAT AFTER TWO HOURS IF SYMPTOMS PERSIST. MAX 200 MG IN 24 HOURS. Qulipta 60 mg tablet 60 mg PO DAILY Patient Comments: TAKE ONE TABLET BY MOUTH EVERY DAY Problem Reconciliation Problems Reviewed?: Yes Patient Discharge Instructions ACTIVITY: Continue current activity DIET: continue same diet Patient Instructions: DI for Endoscopic Retrograde Cholangiopancreatography, DI for Abdominal Pain-Adult Print Language: Bahraini Providers Primary Care Provider: Glendy Brar Admit Provider: Simone May Attending Provider: Simone May
[2024-01-08 08:27] LABS: Lymphocytes % 5 % (10-50); Monocytes % 7 % (2-9); Neutrophils % 88 % (42-76); Platelet Estimate Normal; RBC Morphology Normal; Total Cells Counted 100
[2024-01-08] MEDS: UBROGEPANT 50MG TABLET 50 MG PO (08:33)
[2024-01-08] MEDS: SERTRALINE 50MG TABLET 50 MG PO (08:41)
--- NOTE | 2024-01-11 14:27 | CARE MANAGER ---
Contacted patient related to hospital discharge. She states she is doing well and is aware of follow up appointment. Denies questions or concerns. SARAH Sam
== END 2024-01-08 09:00 | disposition home or self-care (01) ==
LOC: 2ND 16:02
PROVIDERS: Internal Medicine Gastroenterology; Admitting Provider Internal Medicine Adolescent Medicine; PCP Nurse Practitioner Family; Visit Provider Internal Medicine Adolescent Medicine
PROC: (CPT 43264; principal; 2024-01-07 14:30)
DX: K80.50 Calculus of bile duct without cholangitis or cholecystitis without obstruction (principal); K85.90 Acute pancreatitis without necrosis or infection, unspecified; Z79.899 Other long term (current) drug therapy
CPT/HCPCS: 43264; 43275; 36415; 74330; 80053; 81025; 83690; 83735; 85007; 85025; 85027; C1726; C1889; G0378; J0500; J1100; J1885; J2060; J2250; J2405; J3010

== ENCOUNTER 2025-01-10 14:20 | Outpatient (CLI) | payer BC, SELFPAY ==
--- OUTSIDE RECORDS SUMMARY | 2024-01-14 11:30 | XMS_ITS ---
Author Organization [facility] Address [address] [facility] [address] SARAH King [id number] Care Team Providers Care Ob Nurse Name Role Phone Yoko Kaye Unavailable [phone] Allergies No Known Allergies REASON FOR VISIT discuss anxiety Medications Medication SIG (Take, Route, Frequency, Duration) Notes Start Date End Date Status Venlafaxine HCl ER 37.5 MG 1 tablet with food Orally Once a day; Duration: 30 day(s) 01/14/2024 Active Qulipta 60 MG 1 tablet Orally Once a day; Duration: 30 day(s) Active Ubrelvy 50 MG 1 tablet as needed, may take second dose at least 2 hours after first dose up to 4 tablets per day as needed Orally Once a day; Duration: 30 day(s) Active Problems Problem Type SNOMED Code ICD Code Onset Dates Problem Status W/U Status Risk Notes Problem Mixed anxiety and depressive disorder (091604285) Depression with anxiety (F41.8) Active confirmed Vital Signs Blood pressure systolic 120 mm Hg 01/14/20 24 Blood pressure diastolic 64 mm Hg 024 Heart Rate 76 /min 01/14/2024 Weight 162.8 lbs 01/14/2024 Encounters Encounter Location Date Provider Diagnosis [facility] [address] SARAH King [id number] 01/14/2024 Yoko Kaye Depression with anxi ety F41.8 Assessments Encounter Date Diagnosis (ICD Code) Assessment Notes Treatment Notes Treatment Clinical Notes Section Notes 01/14/2024 Depression with anxiety (ICD-10 - F41.8) Plan Of Treatment Medication Medication Name Sig Start Date Stop Date Notes Venlafaxine HCl ER 37.5 MG 1 tablet with food Orally Once a day; Duration: 30 day(s) 01/14/2024 Zoloft 50 MG 1 tablet Orally Once a day Next Appt Details Follow Up: 1 month, Reason: Progress Notes * Ward BAINSaDOB: 9 (44 yo F)Acc No.[id number]:01/14/2024 Progress Notes Patient: Diomedes HARDIN Provider: PETERSON Johnson :1980 A ge:43 Y S ex:Female Date:01/14/2024 [address] [place], [place] [id number] Subjective: * Chief Complaints: * 1 . Discuss anxiety. * HPI: P sychology: 43 year old female presents with c/o Anxiety P t is here today to discuss anxiety. Zoloft does not seem to be helping.. * ROS: R ESPIRATORY: no C hest pain. n o C ough. C ARDIOLOGY: no C hest pain. n o L eg edema. n o S hortness of breath. C ONSTITUTIONAL: Weight gain y es. n o W eakness. E NT: no C ough. n o S ore throat. G ASTROENTEROLOGY: no N ausea. n o V omiting. n o A bdominal pain. * Medical History: M edical History Verified. * Surgical History: G allbladder removal 10/2023, ERCP with stent placement 11/2023, ERCP with stent removal 01/2024, Tubal ligation 12/2010. * Family History: F ather: , diagnosed with Diabetes, Cancer. M other: alive 69 yrs, diagnosed with Hypertension, Heart Disease, Stroke, Mental Illness. P aternal Grand Father: . 1 brother(s) - healthy. 3 son(s) - healthy. . * Social History: C URRENT TOBACCO USE: No . * Medications: T aking Qulipta 60 MG Tablet 1 tablet Orally Once a day , Taking Ubrelvy 50 MG Tablet 1 tablet as needed, may take second dose at least 2 hours after first dose up to 4 tablets per day as needed Orally Once a day , Taking Zoloft 50 MG Tablet 1 tablet Orally Once a day , Discontinued Lipitor 40 MG Tablet 1 tablet Orally Once a day , Medication List reviewed and reconciled with the patient * Allergies: N .K.D.A. Objective: * Vitals: W t:162.8, Temp:97.9, BP:120/64, HR:76, O2 Sat:97% on RA, Nurse:EWELINA. * Examination: P sychology: General Appearance: N AD. G rooming : a dequate.?Eye contact : n ormal. M ood : p leasant. G eneral Examination: General Appearance: N AD. H EENT: u nremarkable.?Oral cavity: n o lesions, mucosa moist and WNL, no erythema. N thiago: s upple, no lymphadenopathy. C hest: n ormal shape and expansion. H eart: R SR. L ungs: c lear to auscultation. A bdomen: bowel sounds present, soft and nontender. N eurologic Exam: alert and oriented. Assessment: * Assessment: 1. D epression with anxiety - F41.8 (Primary) Plan: * Treatment: * Procedure Codes: 9 4760 PULSE OX * Follow Up: 1 month * Images: Billing Information: * Visit Code: 19519 Office Visit, New Pt., Level 3. * Procedure Codes: 75365 PULSE OX. * Electronic signature of PETERSON Hawkins on 01/10/2025 at 02:27 PM EST Sign off status: Pending * Provider: PETERSON Johnson Date: 03/15/2023 Generated for Tarii efraín/Kathy/eTransmitting on: 03/12/2024 02:27 PM EST History and Physical Notes * HPI (History of Present Illness) Category Sub-Category Detail Notes Category Not es Psychology Anxiety Pt is here today to discuss anxiety. Zoloft does not seem to be helping. Examination Category Sub-Category Detail Notes Category Not es General Examination HEENT: unremarkable Heart: RSR Lungs: clear to auscultatio n Abdomen: bowel sounds present , soft and nontender General Appearance: NAD Neurologic Exam: alert and oriented Neck: supple, no lymphaden opathy Oral cavity: no lesions, mucosa m oist and WNL, no erythema Chest: normal shape and exp ansion Psychology General Appearance: NAD Grooming : adequate Eye contact : normal Mood : pleasant
--- OUTSIDE RECORDS SUMMARY | 2024-02-25 08:00 | XMS_ITS ---
Author Organization [facility] Address [address] [facility] [facility] [address] [place] [id number] Care Team Providers Care Press Brake Operator Name Role Phone Fidel Trevizo Unavailable [phone] Allergies No Known Allergies Results Component Value Reference Range Notes Influenza Screen (in house) Reviewed date:02/25/2024 03:37:30 PM Interpretation:neg Performing Lab: Notes/Report: neg results neg P-CBC with Diff plus Absolut e Counts Reviewed date:03/01/2024 04:29:52 PM Interpretation:rdw 38.3, lymph 9.9, abs lymph 0.7, abs gran 0.04 Performing Lab: Notes/Report: Test performed by [facility] [employer] [address] [place] [address] , [address], [place] [address] Diego Crouch MD, Industrial Green Systems Designer CLIA: [id number] WBC 7.4 3.8-11.5 K/uL Red Blood Cell Count (RBC) 4.75 3.60-5.30 M/mm 3 Hemoglobin (Hgb) 13.9 11.5-15.5 gm/dL Hematocrit (HCT) 42.0 35.2-46.4 % MCV 88.4 79.0-99.0 fL MCH 29.3 26.9-35.0 pg MCHC 33.1 30.4-34.8 g/dL RDW 38.3 38.6-53.8 fL Platelet Count 195 137-397 K/cumm Neutrophils Automated 76.4 41.0-77.0 % Lymphocytes Automated 9.9 14.0-48.0 % Monocytes Automated 12.3 4.0-13.0 % Eosinophils Automated 0.5 0.0-8.0 % Basophils Automated 0.4 0.0-1.5 % Immature Granulocyte Automated 0.5 0.0-1.0 % Absolute Neutrophil Count 5.6 2.0-8.2 K/uL Absolute Lymphocyte Count 0.7 0.9-3.6 K/uL Absolute Monocyte Count 0.9 0.3-1.0 K/uL Absolute Eosinophil Count 0.0 0.0-0.6 K/uL Absolute Basophil Count 0.0 0.0-0.1 K/uL Absolute Immature Granulocyte 0.04 0.00-0.03 K /uL Covid test (in house) Reviewed date:02/25/2024 03:37:22 PM Interpretation:neg Performing Lab: Notes/Report: neg Result: neg REASON FOR VISIT fever,cough chills Medications Medication SIG (Take, Route, Frequency, Duration) Notes Start Date End Date Status Azithromycin 500 MG 1 tablet Orally once daily Active Ventolin HFA 108 (90 Base) MCG/ACT 2 inhalations needed Inhalation four times a day as needed 02/25/2024 Active Emgality 120 MG/ML 240 mg Subcutaneous once daily 02/10/2024 Active Ubrelvy 50 MG 1 tablet as needed, may take second dose at least 2 hours after first dose up to 4 tablets per day as needed Orally Once a day; Duration: 30 day(s) Active Qulipta 60 MG 1 tablet Orally Once a day; Duration: 30 day(s) Active Venlafaxine HCl ER 37.5 MG Take 1 tablet by mouth once daily with food; Duration: 30 Active Vital Signs Blood pressure systolic 110 mm Hg 02/25/20 24 Blood pressure diastolic 70 mm Hg 024 Heart Rate 120 /min 02/25/2024 Weight 162.2 lbs 02/25/2024 Encounters Encounter Location Date Provider Diagnosis [facility] [address] [facility] [address] [place], [place] [id number] 02/25/2024 Fidel Trevizo Bronchitis J40 Assessments Encounter Date Diagnosis (ICD Code) Assessment Notes Treatment Notes Treatment Clinical Notes Section Notes 02/25/2024 Bronchitis (ICD-10 - J40) Plan Of Treatment Medication Medication Name Sig Start Date Stop Date Notes Azithromycin 500 MG 1 tablet Orally once daily 02/25/2024 Ventolin HFA 108 (90 Base) MCG/ACT 2 inhalations needed Inhalation four times a day as needed 02/25/2024 Next Appt Details Follow Up: prn, Reason: Progress Notes * Ward BAINSaDOB: 9 (44 yo F)Acc No.[id number]:02/25/2024 Progress Notes Patient: Diomedes HARDIN Provider: Fidel Trevizo M.D. :1980 A ge:43 Y S ex:Female Date:02/25/2024 Address:[address] [place], [place] [id number] Subjective: * Chief Complaints: * 1 . Fever,cough chills. * HPI: E NT/respiratory: 43 year old female presents with c/o sore throat. c/o cough. c/o Fever. c/o ear pain. c/o headache. c/o body aches. Pt sts her symptoms started yesterday. * ROS: R ESPIRATORY: no C hest [...] needed Orally Once a day , Taking Emgality 120 MG/ML Solution Auto-injector 240 mg Subcutaneous once daily , Taking Venlafaxine HCl ER 37.5 MG Tablet Extended Release 24 Hour Take 1 tablet by mouth once daily with food , Medication List reviewed and reconciled with the patient * Allergies: N .K.D.A. Objective: * Vitals: W t:162.2, Temp:100.5, BP:110/70, HR:120, Nurse:EWELINA. * Examination: G eneral Examination: General Appearance: N AD. H EENT: TM's normal.?Oral cavity: n o lesions, mucosa moist and WNL, no erythema. N thiago: s upple, no lymphadenopathy. C hest: n ormal shape and expansion. H eart: R SR. L ungs: c lear to auscultation, deep cough. A bdomen: soft and nontender. N eurologic Exam: I ntact, gait normal. S kin: n ormal, no rash. P eripheral pulses: n ormal (2+) bilaterally. E xtremities: n o leg edema. Assessment: * Assessment: 1. Kevin huber - Chalo (Primary) Plan: * Treatment: Value Reference Range A bsolute Basophil Count 0.0 0.0-0.1 - K/uL * A bsolute Eosinophil Count 0.0 0.0-0.6 - K/uL * A bsolute Immature Granulocyte 0.04 H 0.00-0.03 - K/uL * A bsolute Lymphocyte Count 0.7 L 0.9-3.6 - K/uL * A bsolute Monocyte Count 0.9 0.3-1.0 - K/uL * A bsolute Neutrophil Count 5.6 2.0-8.2 - K/uL * B asophils Automated 0.4 0.0-1.5 - % * E osinophils Automated 0.5 0.0-8.0 - % * H ematocrit (HCT) 42.0 35.2-46.4 - % * H emoglobin (Hgb) 13.9 11.5-15.5 - gm/dL * I mmature Granulocyte Automated 0.5 0.0-1.0 - % * L ymphocytes Automated 9.9 L 14.0-48.0 - % * M CH 29.3 26.9-35.0 - pg * M CHC 33.1 30.4-34.8 - g/dL * M CV 88.4 79.0-99.0 - fL * M onocytes Automated 12.3 4.0-13.0 - % * P latelet Count 195 137-397 - K/cumm * R ed Blood Cell Count (RBC) 4.75 3.60-5.30 - M/ mm3 * R DW 38.3 L 38.6-53.8 - fL * N eutrophils Automated 76.4 41.0-77.0 - % * W BC 7.4 3.8-11.5 - K/uL * Sheree Mcarthur 03/01/2024 4:29 :46 PM > Dr. Trevizo reviewed results with patient. ?LAB: Influenza Screen (in house) (Collection Date & Time - 02/25/2024)?neg * Value Reference Range r esults neg * Ila Peralta 02/25/2024 1:29 :07 PM > Provider reviewed results while patient in office. ?LAB: Covid test (in house) (Collection Date & Time - 02/25/2024)?neg* Value Reference Range R esult: neg * FabianIla 02/25/2024 1:28 :47 PM > Provider reviewed results while patient in office. * Procedure Codes: 8 7804 Flu Test- Nasal Swab, Modifiers: QW , 65898 COVID TEST IN HOUSE, Modifiers: QW * Follow Up: p rn * Images: Billing Information: * Visit Code: 75380 Office Visit, Est Pt., Level 3. * Procedure Codes: 42243 Flu Test- Nasal Swab. Modifiers: QW 50303 COVID TEST IN HOUSE. Modifiers: QW * Electronic signature of Fidel Trevizo MD on 01/10/2025 at 02:29 PM EST Sign off status: Pending * Provider: Fidel Trevizo M.D. Date: 04/27/2023 Generated for Saul kenny/Kathy/eTransmitting on: 03/12/2024 02:29 PM EST History and Physical Notes * HPI (History of Present Illness) Category Sub-Category Detail Notes Category Not es ENT/respiratory sore throat Pt sts her s ymptoms started yesterday ear pain cough Fever headache body aches Examination Category Sub-Category Detail Notes Category Not es General Examination HEENT: TM's normal Heart: RSR Lungs: clear to auscultatio n, deep cough Abdomen: soft and nontender Extremities: no leg edema General Appearance: NAD Skin: normal, no rash Neurologic Exam: Intact, gait normal Neck: supple, no lymphaden opathy Oral cavity: no lesions, mucosa m oist and WNL, no erythema Peripheral pulses: normal (2+) bilatera lly Chest: normal shape and exp ansion
--- OUTSIDE RECORDS SUMMARY | 2024-04-15 04:15 | XMS_ITS ---
Author Organization [facility] Address [address] [facility] [address] [place] [phone] Care Team Providers Care Teacher Industrial Arts Name Role Phone Fidel Trevizo Unavailable [phone] Results Component Value Reference Range Notes P-CBC with Diff plus Absolut e Counts Reviewed date:04/20/2024 09:56:59 AM Interpretation:Normal Performing Lab: Notes/Report: Test performed by [employer], [address] , [address], [place] [address] Diego Crouch MD, Product Development Director CLIA: [id number] WBC 7.1 3.8-11.5 K/uL Red Blood Cell Count (RBC) 4.77 3.60-5.30 M/mm 3 Hemoglobin (Hgb) 13.8 11.5-15.5 gm/dL Hematocrit (HCT) 42.6 35.2-46.4 % MCV 89.3 79.0-99.0 fL MCH 28.9 26.9-35.0 pg MCHC 32.4 30.4-34.8 g/dL RDW 39.4 38.6-53.8 fL Platelet Count 319 137-397 K/cumm Neutrophils Automated 57.3 41.0-77.0 % Lymphocytes Automated 32.3 14.0-48.0 % Monocytes Automated 9.0 4.0-13.0 % Eosinophils Automated 0.6 0.0-8.0 % Basophils Automated 0.7 0.0-1.5 % Immature Granulocyte Automated 0.1 0.0-1.0 % Absolute Neutrophil Count 4.1 2.0-8.2 K/uL Absolute Lymphocyte Count 2.3 0.9-3.6 K/uL Absolute Monocyte Count 0.6 0.3-1.0 K/uL Absolute Eosinophil Count 0.0 0.0-0.6 K/uL Absolute Basophil Count 0.1 0.0-0.1 K/uL Absolute Immature Granulocyte 0.01 0.00-0.03 K /uL REASON FOR VISIT blood work Medications Medication SIG (Take, Route, Frequency, Duration) Notes Start Date End Date Status Zepbound 2.5 MG/0.5ML 2.5 mg Subcutaneou s once a week 03/23/2024 Active Ajovy 225 MG/1.5ML 1.5 mL Subcutaneous once a month 04/13/2024 Active hydrOXYzine HCl 25 MG 1 tablet as needed Orally every night, prn 03/15/2024 Active Venlafaxine HCl ER 37.5 MG Take 1 tablet by mouth once daily with food; Duration: 30 days Active Azithromycin 500 MG 1 tablet Orally once daily Active Ventolin HFA 108 (90 Base) MCG/ACT 2 inhalations needed Inhalation four times a day as needed 02/25/2024 Active Qulipta 60 MG 1 tablet Orally Once a day; Duration: 30 day(s) Active Ubrelvy 50 MG 1 tablet as needed, may take second dose at least 2 hours after first dose up to 4 tablets per day as needed Orally Once a day; Duration: 30 day(s) Active Encounters Encounter Location Date Provider Diagnosis [facility] [address] [facility] [address] [id number] 04/15/2024 Fidel Trevizo Bronchitis J40 Assessments Encounter Date Diagnosis (ICD Code) Assessment Notes Treatment Notes Treatment Clinical Notes Section Notes 04/15/2024 Bronchitis (ICD-10 - J40) Plan Of Treatment No Information Progress Notes * Amrik BAINSB: 9 (44 yo F)Acc No.[id number]:04/15/2024 Patient: Diomedes HARDIN Provider: Fidel Trevizo M.D. :1980 A ge:43 Y S ex:Female Date:04/15/2024 Address:[address] [place], [place] [id number] Subjective: * Chief Complaints: * 1 . Blood work. * Medical History: * Medications: T aking Qulipta 60 MG Tablet 1 tablet Orally Once a day , Taking Ubrelvy 50 MG Tablet 1 tablet as needed, may take second dose at least 2 hours after first dose up to 4 tablets per day as needed Orally Once a day , Taking Ventolin HFA 108 (90 Base) MCG/ACT Aerosol Solution 2 inhalations needed Inhalation four times a day as needed , Taking Azithromycin 500 MG Tablet 1 tablet Orally once daily , Taking hydrOXYzine HCl 25 MG Tablet 1 tablet as needed Orally every night, prn , Taking Venlafaxine HCl ER 37.5 MG Tablet Extended Release 24 Hour Take 1 tablet by mouth once daily with food , Taking Zepbound 2.5 MG/0.5ML Solution Auto-injector 2.5 mg Subcutaneous once a week , Taking Ajovy 225 MG/1.5ML Solution Prefilled Syringe 1.5 mL Subcutaneous once a month , Medication List reviewed and reconciled with the patient Objective: * Vitals: Assessment: * Assessment: 1. B cecile Fidel (Primary) Plan: * Treatment: Value Reference Range A bsolute Basophil Count 0.1 0.0-0.1 - K/uL * A bsolute Eosinophil Count 0.0 0.0-0.6 - K/uL * A bsolute Immature Granulocyte 0.01 0.00-0.03 - K/uL * A bsolute Lymphocyte Count 2.3 0.9-3.6 - K/uL * A bsolute Monocyte Count 0.6 0.3-1.0 - K/uL * A bsolute Neutrophil Count 4.1 2.0-8.2 - K/uL * B asophils Automated 0.7 0.0-1.5 - % * E osinophils Automated 0.6 0.0-8.0 - % * H ematocrit (HCT) 42.6 35.2-46.4 - % * H emoglobin (Hgb) 13.8 11.5-15.5 - gm/dL * I mmature Granulocyte Automated 0.1 0.0-1.0 - % * L ymphocytes Automated 32.3 14.0-48.0 - % * M CH 28.9 26.9-35.0 - pg * M CHC 32.4 30.4-34.8 - g/dL * M CV 89.3 79.0-99.0 - fL * M onocytes Automated 9.0 4.0-13.0 - % * P latelet Count 319 137-397 - K/cumm * R ed Blood Cell Count (RBC) 4.77 3.60-5.30 - M/ mm3 * R DW 39.4 38.6-53.8 - fL * N eutrophils Automated 57.3 41.0-77.0 - % * W BC 7.1 3.8-11.5 - K/uL * Sheree Mcarthur 04/18/2024 5:38: 57 PM > Sent to patient to notify of normal test results. * Images: Billing Information: * Visit Code: * Procedure Codes: * Electronic signature of Fidel Trevizo MD on 01/10/2025 at 02:29 PM EST Sign off status: Pending * Provider: Fidel Trevizo M.D. Date: 0 04/15/2024 Generated for Saul kenny/Kathy/eTransmitting on: 1 03/12/2024 02:29 PM EST
--- OUTSIDE RECORDS SUMMARY | 2024-04-29 11:15 | XMS_ITS ---
Author Organization [facility] Address [address] [facility] [address] [place] [phone] Care Team Providers Care Pipeline Gang Supervisor Name Role Phone Yoko Kaye Unavailable [phone] Allergies No Known Allergies Results Component Value Reference Range Notes P-Vitamin B12 Reviewed date:05/04/2024 08:35:51 AM Interpretation:Normal Performing Lab: Notes/Report: Test performed by [email or web address] [address] [place] [address] , [address], [place] [address] Diego Crouch MD, Client Resolution Specialist CLIA: [id number] Vitamin B12 215 291-9109 pg/mL P-Comprehensive Metabolic Pa meghann (CMP) Reviewed date:05/04/2024 08:35:51 AM Interpretation:gluc 110 Performing Lab: Notes/Report: Test performed by [email or web address] [address] [place] [address] , [address], [place] [address] Diego Crouch MD, Client Resolution Specialist CLIA: [id number] Sodium 142 135-145 mmol/L Potassium 4.3 3.5-5.3 mmol/L Chloride 106 97-108 mmol/L CO2 25 22-32 mmol/L Glucose 110 65-99 mg/dL BUN 7 6-20 mg/dL Creatinine 0.68 0.50-1.00 mg/dL Calcium 9.6 8.6-10.4 mg/dL eGFR by Creatinine 109 >59 mL/min/1.73m2 Protein 7.1 6.0-8.3 g/dL Albumin 4.5 3.5-5.3 g/dL Alkaline Phosphatase 91 35-121 IU/L ALT (SGPT) 14 <5-47 IU/L AST (SGOT) 20 <5-40 IU/L Bilirubin, Total 0.2 <0.2-1.2 mg/dL A/G Ratio 1.7 1.1-2.5 P-TSH reflex to FT4 Reviewed date:05/04/2024 08:35:51 AM Interpretation:Normal Performing Lab: Notes/Report: Test performed by [facility] [address] , [address], [place] [address] Diego Crouch MD, Client Resolution Specialist CLIA: [id number] TSH reflex to FT4 1.17 0.43-5.25 mU/L P-Vitamin D 25-Hydroxy Reviewed date:05/04/2024 08:35:51 AM Interpretation:13.9 Performing Lab: Notes/Report: Test performed by [email or web address] [address] [place] [address] , [address], [place] [address] Diego Crouch MD, Client Resolution Specialist CLIA: [id number] Vitamin D 25-Hydroxy 13.9 30.0-100.0 ng/mL Interpretation of Vitamin D 25 OH: < 20 ng/mL - Deficiency 20 - 29 ng/mL - Insufficiency 30 - 100 ng/mL - Sufficiency > 100 ng/mL - Super-therapeutic- toxicity may occur above this level. Clinical correlation required. REASON FOR VISIT tired, no energy; just labs Encounters Encounter Location Date Provider Diagnosis [facility] [address] [facility] [address] [place] [phone] 04/29/2024 Yoko Mikki Other fatigue R53.83 Assessments Encounter Date Diagnosis (ICD Code) Assessment Notes Treatment Notes Treatment Clinical Notes Section Notes 04/29/2024 Other fatigue (ICD-10 - R53.83) Plan Of Treatment Pending Test Test Name Order Date CBC Venipuncture (in house) 04/29/2024 Progress Notes * Amrik BIANSB: 9 (44 yo F)Acc No.[id number]:04/29/2024 Patient: Diomedes HARDIN Provider: PETERSON Johnson :1980 A ge:43 Y S ex:Female Date:04/29/2024 Address:[address] [place] [address] [facility] Subjective: * Chief Complaints: * 1 . Tired, no energy; just labs. * HPI: E NT/respiratory: tired no energy. * ROS: R ESPIRATORY: no C hest [...] Medical History: M edical History Verified. * Allergies: N .K.D.A. Objective: * Vitals: Assessment: * Assessment: 1. O ther fatigue - R53.83 (Primary) Plan: * Treatment: Value Reference Range V itamin B12 023 630-6690 - pg/mL * Yoko Kaye 05/04/2024 8:3 5:37 AM > see TE ?LAB: P-Comprehensive Metabolic Panel (CMP) (Collection Date & Time - 04/29/2024 01:54 PM)?gluc 110* Value Reference Range A /G Ratio 1.7 1.1-2.5 - * A lbumin 4.5 3.5-5.3 - g/dL * A lkaline Phosphatase 91 35-121 - IU/L * A LT (SGPT) 14 <5-47 - IU/L * A ST (SGOT) 20 <5-40 - IU/L * B ilirubin, Total 0.2 <0.2-1.2 - mg/dL * B UN 7 6-20 - mg/dL * C alcium 9.6 8.6-10.4 - mg/dL * C hloride 106 97-108 - mmol/L * C O2 25 22-32 - mmol/L * C reatinine 0.68 0.50-1.00 - mg/dL * G lucose 110 H 65-99 - mg/dL * P otassium 4.3 3.5-5.3 - mmol/L * S odium 142 135-145 - mmol/L * P rotein 7.1 6.0-8.3 - g/dL * e GFR by Creatinine 109 >59 - mL/min/1.73m2 * HenrikdonYoko Nasim 05/04/2024 8:3 5:37 AM > see TE ?LAB: P-TSH reflex to FT4 (Collection Date & Time - 04/29/2024 01:54 PM)? Normal* Value Reference Range T SH reflex to FT4 1.17 0.43-5.25 - mU/L * MikkiYoko S 05/04/2024 8:3 5:37 AM > see TE ?LAB: P-Vitamin D 25-Hydroxy (Collection Date & Time - 04/29/2024 01:54 PM)? 13.9* Value Reference Range V itamin D 25-Hydroxy 13.9 L 30.0-100.0 - ng/mL * MikkiYoko Nasim 05/04/2024 8:3 5:37 AM > see TE * Procedure Codes: 8 5025 CBC WITH AUTO DIFF, 39019 VENIPUNCT, ROUTINE* * Images: Billing Information: * Visit Code: * Procedure Codes: 71814 CBC WITH AUTO DIFF. 33642 VENIPUNCT, ROUTINE*. * Electronic signature of PETERSON Hawkins on 01/10/2025 at 02:27 PM EST Sign off status: Pending * Provider: PETERSON Johnson Date: 0 04/29/2024 Generated for Saul ng/Vinnieg/eTransmitting on: 1 03/12/2024 02:27 PM EST History and Physical Notes * HPI (History of Present Illness) Category Sub-Category Detail Notes Category Not es ENT/respiratory tired no vinicio rgy
--- OUTSIDE RECORDS SUMMARY | 2024-06-13 08:30 | XMS_ITS ---
Author Organization [facility] Address 12[address] [facility] [address] [place] [id number] Care Team Providers Care Wall Taper Name Role Phone Sourav Ramirez Unavailable [phone] Allergies No Known Allergies Results Component Value Reference Range Notes CBC Fingerstick (in house) Reviewed date:06/13/2024 03:35:53 PM Interpretation: Performing Lab: Notes/Report: wbc 8.9 3.5 - 10 lym 25.4% 15 - 50 mid 5.3% 2 - 15 gran 69.3% 35 - 80 rbc 4.82 3.5 - 5.5 hgb 15.6 11.5 - 16.5 hct 43.1 35 - 55 mcv 89.4 75 - 100 mch 32.5 25 - 35 mchc 36.3 31 - 38 plat 202 100 - 400 REASON FOR VISIT possible sinus infection Medications Medication SIG (Take, Route, Frequency, Duration) Notes Start Date End Date Status Zepbound 7.5 MG/0.5ML INJECT 1 SYRINGE SUBCUTANEOUSLY ONCE A WEEK; Duration: 28 Active Zithromax Z-Christian 250 MG as directed Orall y once daily; Duration: 5 day(s) 06/13/2024 Active hydrOXYzine HCl 25 MG TAKE 1 TABLET BY M OUTH ONCE DAILY AT NIGHT NEEDED; Duration: 30 Active Ajovy 225 MG/1.5ML as directed Subcutan eous once a month 05/09/2024 Active Ondansetron 4 MG 1 tablet on the tong ue and allow to dissolve Orally three times a day as needed 05/23/2024 Acti ve Vitamin D3 1.25 MG (40786 UT) 1 capsule Orally Once weekly 05/03/2024 Active Venlafaxine HCl ER 37.5 MG Take 1 tablet by mouth once daily with food; Duration: 30 days Active Ventolin HFA 108 (90 Base) MCG/ACT 2 inhalations needed Inhalation four times a day as needed 02/25/2024 Active Ubrelvy 50 MG 1 tablet as needed, may take second dose at least 2 hours after first dose up to 4 tablets per day as needed Orally Once a day; Duration: 30 day(s) Active Qulipta 60 MG 1 tablet Orally Once a day; Duration: 30 day(s) Active Vital Signs Blood pressure systolic 120 mm Hg 06/14/19 25 Blood pressure diastolic 78 mm Hg 025 Heart Rate 98 /min 06/13/2024 Weight 142 lbs 06/13/2024 Encounters Encounter Location Date Provider Diagnosis [facility] [address] [place], [place] [phone] 06/13/2024 Sourav Ramirez Acute URI J06.9 Assessments Encounter Date Diagnosis (ICD Code) Assessment Notes Treatment Notes Treatment Clinical Notes Section Notes 06/13/2024 Acute URI (ICD-10 - J06.9) Plan Of Treatment Medication Medication Name Sig Start Date Stop Date Notes Zithromax Z-Christian 250 MG as directed Orall y once daily; Duration: 5 day(s) 06/13/2024 Next Appt Details Follow Up: prn, Reason: Progress Notes * Amrik BAINSB: 9 (44 yo F)Acc No.[id number]:06/13/2024 Progress Notes Patient: Diomedes HARDIN Provider: Kevin Ramirez M.D. :1980 A ge:43 Y S ex:Female Date:06/13/2024 Address:[address] [place] [address] Subjective: * Chief Complaints: * 1 . Possible sinus infection. * HPI: E NT/respiratory: 43 year old female presents with c/o chest congestion P t complains of chest congestion with production of sputum that started Thursday. Pt states she have a ma cough once in a while but feels like all of the congestion is going into her chest. * ROS: D ERMATOLOGY: no R srikanth. n o H parth. G ASTROENTEROLOGY: no N ausea. n o V omiting. U ROLOGY: no D ifficulty urinating. n o B lood in urine. * Medical History: M igraine headache, Vitamin D deficiency. * Surgical History: C holecystectomy 10/2023, ERCP with stent placement 11/2023, ERCP with stent removal 01/2024, Tubal ligation 12/2010. * Hospitalization/Major Diagno stic Procedure: D enies Past Hospitalization. * Family History: F ather: , diagnosed with Cancer, Diabetes. M other: alive 70 yrs, diagnosed with Hypertension, Heart Disease, Stroke, [...] times a day as needed , Taking Venlafaxine HCl ER 37.5 MG Tablet Extended Release 24 Hour Take 1 tablet by mouth once daily with food , Taking Vitamin D3 1.25 MG (64875 UT) Capsule 1 capsule Orally Once weekly , Taking hydrOXYzine HCl 25 MG Tablet TAKE 1 TABLET BY MOUTH ONCE DAILY AT NIGHT NEEDED , Taking Ondansetron 4 MG Tablet Disintegrating 1 tablet on the tongue and allow to dissolve Orally three times a day as needed , Taking Ajovy 225 MG/1.5ML Solution Auto-injector as directed Subcutaneous once a month , Taking Zepbound 7.5 MG/0.5ML Solution Auto-injector INJECT 1 SYRINGE SUBCUTANEOUSLY ONCE A WEEK , Discontinued Azithromycin 500 MG Tablet 1 tablet Orally once daily , Discontinued Ajovy 225 MG/1.5ML Solution Prefilled Syringe 1.5 mL Subcutaneous once a month , Discontinued Tamiflu 75 MG Capsule 1 capsule Orally once daily , Notes to Pharmacist: Preventive Dosing, Medication List reviewed and reconciled with the patient * Allergies: N .K.D.A. Objective: * Vitals: W t:142, Temp:98.5, BP:120/78, HR:98, Nurse:jermain. * Examination: E NT/Respiratory: General Appearance: N AD. E yes: P ERRLA, sclera clear. O ral cavity : erythema without exudate on pharynx. N thiago : n o cervical lymphadenopathy. H eart : R RR, normal S1 S2. L ungs: c lear to auscultation bilaterally. Assessment: * Assessment: 1. Ros triplett URI - J06.9 (Primary) Plan: * Treatment: Value Reference Range w bc 8.9 3.5 - 10 * l ym 25.4% 15 - 50 * m id 5.3% 2 - 15 * g ran 69.3% 35 - 80 * r bc 4.82 3.5 - 5.5 * h gb 15.6 11.5 - 16.5 * h ct 43.1 35 - 55 * m cv 89.4 75 - 100 * m ch 32.5 25 - 35 * m chc 36.3 31 - 38 * p lat 202 100 - 400 * Eva Nam 06/13/2024 1:32:48 PM > , Provider reviewed results while patient in office. * Procedure Codes: 3 6416 CAPILLARY BLOOD DRAW, 34457 CBC WITH AUTO DIFF * Follow Up: p rn * Images: Billing Information: * Visit Code: 38803 Office Visit, Est Pt., Level 3. * Procedure Codes: 64259 CAPILLARY BLOOD DRAW. 36077 CBC WITH AUTO DIFF. * Electronic signature of Kayla Ramirez MD on 01/10/2025 at 02:28 PM EST Sign off status: Pending * Provider: Kevin Ramirez M.D. Date: 0 06/13/2024 Generated for Saul kenny/Kathy/eTalbertasmitting on: 1 03/12/2024 02:28 PM EST History and Physical Notes * HPI (History of Present Illness) Category Sub-Category Detail Notes Category Not es ENT/respiratory chest congestion Pt complains of chest congestion with production of sputum that started Thursday. Pt states she have a ma cough once in a while but feels like all of the congestion is going into her chest Examination Category Sub-Category Detail Notes Category Not es ENT/Respiratory Oral cavity : erythema without exudate on pharynx Neck : no cervical lymphade nopathy Heart : RRR, normal S1 S2 Lungs: clear to auscultatio n bilaterally General Appearance: NAD Eyes: PERRLA, sclera clear
--- OUTSIDE RECORDS SUMMARY | 2024-07-06 03:30 | XMS_ITS ---
Author Organization [facility] Address [address] [facility] [address] [place] [id number] Care Team Providers Care Press Smith Helper Name Role Phone Sourav Ramirez Unavailable [phone] Results Component Value Reference Range Notes CBC Venipuncture (in house) Reviewed date:07/07/2024 08:18:19 AM Interpretation: Normal Performing Lab: Notes/Report: Normal wbc 7.4 3.5 - 10 lymph 25.2 15 - 50 mid 6.3 2 - 15 gran 68.5 35 - 80 rbc 4.30 3.5 - 5.5 hgb 14.1 11.5 - 16.5 hct 39.7 35 - 55 mcv 92.3 75 - 100 mch 32.9 25 - 35 mchc 35.6 31 - 38 platlet 282 100 - 400 P-Comprehensive Metabolic Pa meghann (CMP) Reviewed date:07/07/2024 08:18:19 AM Interpretation: Normal Performing Lab: Notes/Report: Test performed by [employer] [employer] [address] [place] [address] , [address], [place] [address] Diego Crouch MD, Service Control Operator CLIA: [id number] Sodium 139 135-145 mmol/L Potassium 4.2 3.5-5.3 mmol/L Chloride 104 97-108 mmol/L CO2 24 22-32 mmol/L Glucose 83 65-99 mg/dL BUN 11 6-20 mg/dL Creatinine 0.51 0.50-1.00 mg/dL Calcium 9.5 8.6-10.4 mg/dL eGFR by Creatinine 117 >59 mL/min/1.73m2 Protein 6.9 6.0-8.3 g/dL Albumin 4.3 3.5-5.3 g/dL Alkaline Phosphatase 104 35-121 IU/L ALT (SGPT) 11 <5-47 IU/L AST (SGOT) 17 <5-40 IU/L Bilirubin, Total 0.4 <0.2-1.2 mg/dL A/G Ratio 1.7 1.1-2.5 P-Prothrombin Time (PT) Reviewed date:07/07/2024 08:18:19 AM Interpretation: Normal Performing Lab: Notes/Report: Test performed by [facility] [employer] [address] [place] [address] [place] [address] Diego Crouch MD, Service Control Operator CLIA: [id number] PT 10.9 9.5-12.2 sec INR 1.0 0.9-1.2 INR Reference Ranges for patients on anticoagulant therapy: RANGES: 2.0 - 3.0: Indications: Treatment of venous thrombosis or pulmonary embolism. Prevention of systemic embolism. Tissue heart valves. Acute myocardial infarction. Atrial fibrillation. 2.5 - 3.5: Indications: Recurrent embolism. Mechanical heart valves. Antiphospholipid antibodies. INR IS FOR USE IN STABILIZED ANTICOAGULATED PATIENTS. Elevated coagulation studies may be seen in patients with hematocrit of greater than 55%. Reference: Practical Diagnosis of Hematological Disorders. 3rd Edition. 2000. p 853. P-Partial Thromboplastin Ruslan e (PTT) Reviewed date:07/07/2024 08:18:19 AM Interpretation: Normal Performing Lab: Notes/Report: Test performed by [facility] [address] [place] [address] [place] [address] Diego Crouch MD, Service Control Operator CLIA: [id number] Partial Thromboplastin Time (PTT) 28.0 23.9-33.0 sec Heparin therapeutic range has not been validated for this assay. P-Vitamin D 25-Hydroxy Reviewed date:07/07/2024 08:18:19 AM Interpretation: Normal Performing Lab: Notes/Report: Test performed by [facility] [address] [place] [address] [place] [address] Diego Crouch MD, Service Control Operator CLIA: [id number] Vitamin D 25-Hydroxy 69.6 30.0-100.0 ng/mL Interpretation of Vitamin D 25 OH: < 20 ng/mL - Deficiency 20 - 29 ng/mL - Insufficiency 30 - 100 ng/mL - Sufficiency > 100 ng/mL - Super-therapeutic- toxicity may occur above this level. Clinical correlation required. REASON FOR VISIT blood work Medications Medication SIG (Take, Route, Frequency, Duration) Notes Start Date End Date Status Ondansetron 4 MG 1 tablet on the tong ue and allow to dissolve Orally three times a day as needed 05/23/2024 Active Zepbound 10 MG/0.5ML 0.5 mL Subcutaneous once a week; Duration: 30 days 06/27/2024 Active Venlafaxine HCl ER 37.5 MG 1 capsule wit h food Orally Once a day; Duration: 30 days 06/22/2024 Active Zithromax Z-Christian 250 MG as directed Orall y once daily; Duration: 5 day(s) 06/13/2024 Active Ajovy 225 MG/1.5ML as directed Subcutan eous once a month 05/09/2024 Active hydrOXYzine HCl 25 MG TAKE 1 TABLET BY M OUTH ONCE DAILY AT NIGHT NEEDED; Duration: 30 Active Vitamin D3 1.25 MG (99757 UT) 1 capsule Orally Once weekly 05/03/2024 Active Ventolin HFA 108 (90 Base) MCG/ACT [...] Problem Status W/U Status Risk Notes Problem Vitamin D deficiency (03692591) Vitamin D deficiency (E55.9) Active confirmed Encounters Encounter Location Date Provider Diagnosis [facility] [address] [place], [place] [id number] 07/06/2024 Sourav Jackson Easy bruising R23.3 and Vitamin D deficiency E55.9 Assessments Encounter Date Diagnosis (ICD Code) Assessment Notes Treatment Notes Treatment Clinical Notes Section Notes 07/06/2024 Easy bruising (ICD-10 - R23.3) 07/06/2024 Vitamin D deficiency (ICD-10 - E55.9) Plan Of Treatment No Information Progress Notes * Mundo BAINS: 9 (44 yo F)Acc No.[id number]:07/06/2024 Patient: Diomedes HARDIN Provider: Kevin Ramirez M.D. :1980 A ge:43 Y S ex:Female Date:07/06/2024 Address:[address] [place], [place] [phone] Subjective: * Chief Complaints: * 1 . [...] times a day as needed , Taking Vitamin D3 1.25 MG (68015 UT) Capsule 1 capsule Orally Once weekly , Taking hydrOXYzine HCl 25 MG Tablet TAKE 1 TABLET BY MOUTH ONCE DAILY AT NIGHT NEEDED , Taking Ondansetron 4 MG Tablet Disintegrating 1 tablet on the tongue and allow to dissolve Orally three times a day as needed , Taking Ajovy 225 MG/1.5ML Solution Auto-injector as directed Subcutaneous once a month , Taking Zithromax Z-Christian 250 MG Tablet as directed Orally once daily , Taking Venlafaxine HCl ER 37.5 MG Capsule Extended Release 24 Hour 1 capsule with food Orally Once a day , Taking Zepbound 10 MG/0.5ML Solution Auto-injector 0.5 mL Subcutaneous once a week , Medication List reviewed and reconciled with the patient Objective: * Vitals: Assessment: * Assessment: 1. E asy bruising - R23.3 (Primary) 2 . V itamin D deficiency - E55.9 ? Plan: * Treatment: Value Reference Range A /G Ratio 1.7 1.1-2.5 - * A lbumin 4.3 3.5-5.3 - g/dL * A lkaline Phosphatase 104 35-121 - IU/L * A LT (SGPT) 11 <5-47 - IU/L * A ST (SGOT) 17 <5-40 - IU/L * B ilirubin, Total 0.4 <0.2-1.2 - mg/dL * B UN 11 6-20 - mg/dL * C alcium 9.5 8.6-10.4 - mg/dL * C hloride 104 97-108 - mmol/L * C O2 24 22-32 - mmol/L * C reatinine 0.51 0.50-1.00 - mg/dL * G lucose 83 65-99 - mg/dL * P otassium 4.2 3.5-5.3 - mmol/L * S odium 139 135-145 - mmol/L * P rotein 6.9 6.0-8.3 - g/dL * e GFR by Creatinine 117 >59 - mL/min/1.73m2 * Evelyn Sheth 07/07/2024 08:1 8:08 AM > pt informed of results ?LAB: P-Prothrombin Time (PT) (Collection Date & Time - 07/06/2024 08:17 AM) ?Normal* Value Reference Range I NR 1.0 0.9-1.2 - * P T 10.9 9.5-12.2 - sec * Evelyn Sheth 07/07/2024 08:1 8:08 AM > pt informed of results ?LAB: P-Partial Thromboplastin Time (PTT) (Collection Date & Time - 07/06/2024 08:17 AM)?Normal* Value Reference Range P artial Thromboplastin Time (PTT) 28.0 23.9-33 .0 - sec * Evelyn Sheth 07/07/2024 08:1 8:08 AM > pt informed of results ?LAB: CBC Venipuncture (in house) (Collection Date & Time - 07/06/2024)? Normal* Value Reference Range w bc 7.4 3.5 - 10 * l ymph 25.2 15 - 50 * m id 6.3 2 - 15 * g ran 68.5 35 - 80 * r bc 4.30 3.5 - 5.5 * h gb 14.1 11.5 - 16.5 * h ct 39.7 35 - 55 * m cv 92.3 75 - 100 * m ch 32.9 25 - 35 * m chc 35.6 31 - 38 * p latlet 282 100 - 400 * Ila Peralta 07/06/2024 04:39 :55 PM > DomenicEvelyn 07/07/2024 08:18:08 AM > pt informed of results 2.?Vitamin D deficiency?LAB: P-Vitamin D 25-Hydroxy (Collection Date & Time - 07/06/2024 08:17 AM)? Normal* Value Reference Range V itamin D 25-Hydroxy 69.6 30.0-100.0 - ng/mL * Evelyn Sheth 07/07/2024 08:1 8:08 AM > pt informed of results * Procedure Codes: 8 5025 CBC WITH AUTO DIFF * Images: Billing Information: * Visit Code: * Procedure Codes: 10199 CBC WITH AUTO DIFF. * Electronic signature of Kayla Ramirez MD on 01/10/2025 at 02:28 PM EST Sign off status: Pending * Provider: Kevin Ramirez M.D. Date: 0 07/06/2024 Generated for Saul kenny/Kathy/Chasity on: 1 03/12/2024 02:28 PM EST
--- OUTSIDE RECORDS SUMMARY | 2024-07-13 10:45 | XMS_ITS ---
Author Organization [facility] Address 12[address] [facility] [address] [place] [id number] Care Team Providers Care Anchor Operator Name Role Phone Yoko Kaye Unavailable [phone] Allergies No Known Allergies REASON FOR VISIT neck pain, headaches Medications Medication SIG (Take, Route, Frequency, Duration) Notes Start Date End Date Status Medrol 4 MG as directed Orally Active Zepbound 10 MG/0.5ML 0.5 mL Subcutaneous once a week; Duration: 30 days 06/27/2024 Active Venlafaxine HCl ER 37.5 MG 1 capsule wit h food Orally Once a day; Duration: 30 days 06/22/2024 Active Zithromax Z-Christian 250 MG as directed Orall y once daily; Duration: 5 day(s) 06/13/2024 Active Cyclobenzaprine HCl 5 MG 1 tablet Orally Three times a day, prn; Duration: 30 days 07/13/2024 Active Ajovy 225 MG/1.5ML as directed Subcutan eous once a month 05/09/2024 Active Ondansetron 4 MG 1 tablet on the tong ue and allow to dissolve Orally three times a day as needed 05/23/2024 Active hydrOXYzine HCl 25 MG TAKE 1 TABLET BY M OUTH ONCE DAILY AT NIGHT NEEDED; Duration: 30 Active Vitamin D3 1.25 MG (19739 UT) 1 capsule Orally Once weekly 05/03/2024 [...] day(s) Active Vital Signs Blood pressure systolic 118 mm Hg 07/14/19 25 Blood pressure diastolic 76 mm Hg 025 Heart Rate 88 /min 07/13/2024 Weight 138 lbs 07/13/2024 Encounters Encounter Location Date Provider Diagnosis [facility] [address] [place] [id number] 07/13/2024 Yoko Kaye Neck muscle spasm M62.838 Assessments Encounter Date Diagnosis (ICD Code) Assessment Notes Treatment Notes Treatment Clinical Notes Section Notes 07/13/2024 Neck muscle spasm (ICD-10 - M62.838) Plan Of Treatment Medication Medication Name Sig Start Date Stop Date Notes Medrol 4 MG as directed Orally Cyclobenzaprine HCl 5 MG 1 tablet Orally Three times a day, prn; Duration: 30 days 07/13/2024 Next Appt Details Follow Up: prn, Reason: Progress Notes * Ward BAINSAdamB: 9 (44 yo F)Acc No.[id number]:07/13/2024 Progress Notes Patient: Diomedes HARDIN Provider: PETERSON Johnson :1980 A ge:43 Y S ex:Female Date:07/13/2024 Address:[address] [place], [place] [phone] Subjective: * Chief Complaints: * 1 . Neck pain, headaches. * HPI: N eurology: 43 year old female presents with c/o headache P t presents today with c/o neck pain that may be causing headaches. 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 Pt has tried multiple migraine medications without relief. * ROS: D ERMATOLOGY: no R srikanth. [...] diagnosed with Diabetes, Cancer. M other: alive 70 yrs, diagnosed with Hypertension, Stroke, Mental Illness, Heart Disease. P ateesaul Grand Father: . 1 brother(s) - healthy. [...] needed , Taking Vitamin D3 1.25 MG (01662 UT) Capsule 1 capsule Orally Once weekly [...] Allergies: N .K.D.A. Objective: * Vitals: W t: 138, Temp: 98.4, BP: 118/76, HR: 88, Nurse: GEMMA. * Examination: G eneral Examination: General Appearance: N AD. N thiago: t tp along the bilateral trapezius muscles, significant trigger point on the left side, pain with flexion and extension of neck. C hest: n ormal shape and expansion. H eart: R SR. L ungs: c lear to auscultation. Assessment: * Assessment: 1. N thiago muscle spasm - M62.838 (Primary) Plan: * Treatment: * Follow Up: p rn * Images: Billing Information: * Visit Code: 46940 Office Visit, Est Pt., Level 3. * Procedure Codes: * Electronic signature of PETERSON Hawkins on 01/10/2025 at 02:28 PM EST Sign off status: Pending * Provider: PETERSON Johnson Date: 0 07/13/2024 Generated for Saul kenny/Kathy/Chasity on: 1 03/12/2024 02:28 PM EST History and Physical Notes * HPI (History of Present Illness) Category Sub-Category Detail Notes Category Not es Neurology headache Pt presents toda y with c/o neck pain that may be causing headaches. 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 Pt has tried multiple migraine medications without relief Examination Category Sub-Category Detail Notes Category Not es General Examination Heart: RSR Lungs: clear to auscultatio n General Appearance: NAD Neck: ttp along the bilate ral trapezius muscles, significant trigger point on the left side, pain with flexion and extension of neck Chest: normal shape and exp ansion
--- OUTSIDE RECORDS SUMMARY | 2024-08-01 09:15 | XMS_ITS ---
Author Organization [facility] Address 12[address] [facility] [address] [place] [id number] Care Team Providers Care Php Mysql Web Developer Name Role Phone Cele Grant Unavailable [phone] Allergies No Known Allergies REASON FOR VISIT earache Medications Medication SIG (Take, Route, Frequency, Duration) Notes Start Date End Date Status Cyclobenzaprine HCl 5 MG 1 tablet Orally Three times a day, prn; Duration: 30 days 07/13/2024 Not-Taking Medrol 4 MG as directed Orally Not-Taking Vitamin D3 1.25 MG (62010 UT) Take 1 capsule by mouth once a week; Duration: 91 Active Zepbound 10 MG/0.5ML 0.5 mL Subcutaneous once a week; Duration: 30 days 06/27/2024 Active Venlafaxine HCl ER 37.5 MG 1 capsule wit h food Orally Once a day; Duration: 30 days 06/22/2024 Active Ventolin HFA 108 (90 Base) MCG/ACT 2 inhalations needed Inhalation four times a day as needed 02/25/2024 Active hydrOXYzine HCl 25 MG TAKE 1 TABLET BY M OUTH ONCE DAILY AT NIGHT NEEDED; Duration: 30 Active Ajovy 225 MG/1.5ML as directed Subcutaneous once a month 05/09/2024 Active Ondansetron 4 MG 1 tablet on the tong ue and allow to dissolve Orally three times a day as needed 05/23/2024 Active Zithromax Z-Christian 250 MG as directed Orall y once daily; Duration: 5 day(s) 06/13/2024 Not-Taking Ubrelvy 50 MG 1 tablet as needed, may take second dose at least 2 hours after first dose up to 4 tablets per day as needed Orally Once a day; Duration: 30 day(s) Active Qulipta 60 MG 1 tablet Orally Once a day; Duration: 30 day(s) Active Ciprofloxacin-dexAMETHason e 0.3-0.1 % 4 gtts into right eat Otic Twice a day; Duration: 7 days 08/01/2024 Active Vital Signs Blood pressure systolic 120 mm Hg 08/02/19 25 Blood pressure diastolic 70 mm Hg 025 Heart Rate 98 /min 08/01/2024 Weight 137 lbs 08/01/2024 Encounters Encounter Location Date Provider Diagnosis [facility] [address] [place], [place] [phone] 08/01/2024 Cele Grant Otalgia H92.0 9 Assessments Encounter Date Diagnosis (ICD Code) Assessment Notes Treatment Notes Treatment Clinical Notes Section Notes 08/01/2024 Otalgia (ICD-10 - H92.09) Start antibiotic ear drops, start taking a claritin Plan Of Treatment Medication Medication Name Sig Start Date Stop Date Notes Ciprofloxacin-dexAMETHasone 0.3-0.1 % 4 gtts into right eat Otic Twice a day; Duration: 7 days 08/01/2024 Treatment Notes Assessment Notes Otalgia Start antibiotic ear drops, start taking a claritin Next Appt Details Follow Up: prn, 1 week if no t better, Reason: Progress Notes * Amrik BAINSB: 9 (44 yo F)Acc No.[id number]:08/01/2024 Progress Notes Patient: Diomedes HARDIN Provider: SALVADOR Capellan :1980 A ge:43 Y S ex:Female Date:08/01/2024 Address:[address] [place], [place] [phone] Subjective: * Chief Complaints: * 1 . Earache. * HPI: E NT/respiratory: 43 year old female presents with c/o nasal congestion. c/o ear pain P t sts she has pain in her rt ear, and sts she is afraid something may flew in inside of it . c/o post nasal drainage. c/o headache. Denies : cough. D enies : Fever. D enies : smoking.? * ROS: D ERMATOLOGY: no R srikanth. [...] other: alive 70 yrs, diagnosed with Hypertension, Mental Illness, Stroke, Heart Disease. P aternal Grand Father: . 1 brother(s) [...] times a day as needed , Taking hydrOXYzine HCl 25 MG Tablet TAKE 1 TABLET BY MOUTH ONCE DAILY AT NIGHT NEEDED , Taking Ondansetron 4 MG Tablet Disintegrating 1 tablet on the tongue and allow to dissolve Orally three times a day as needed , Taking Ajovy 225 MG/1.5ML Solution Auto-injector as directed Subcutaneous once a month , Taking Venlafaxine HCl ER 37.5 MG Capsule Extended Release 24 Hour 1 capsule with food Orally Once a day , Taking Zepbound 10 MG/0.5ML Solution Auto-injector 0.5 mL Subcutaneous once a week , Taking Vitamin D3 1.25 MG (21466 UT) Capsule Take 1 capsule by mouth once a week , Not-Taking Zithromax Z-Christian 250 MG Tablet as directed Orally once daily , Not- Taking Medrol 4 MG Tablet Therapy Pack as directed Orally , Not-Taking Cyclobenzaprine HCl 5 MG Tablet 1 tablet Orally Three times a day, prn , Medication List reviewed and reconciled with the patient * Allergies: N .K.D.A. Objective: * Vitals: W t: 137, Temp: 98.5, BP: 120/70, HR: 98, Nurse: [facility]. * Examination: G eneral Examination: General Appearance: N AD, alert, pleasant. O ral cavity: n ormal. N thiago: n o lymphadenopathy. C hest: n ormal. H eart: R RR.?Lungs: n ormal, clear to auscultation. E NT/Respiratory: General Appearance: N AD. E yes: P ERRLA, sclera clear. E ars: e jennifer right canal. S inuses : n on tender bilaterally. O ral cavity : n o erythema or exudate seen on pharynx. Assessment: * Assessment: 1. O talgia - H92.09 (Primary) S pecify :right ear Plan: * Treatment: * Procedure Codes: 1 036F TOBACCO NON-USER, G8783 BP SCR PRFRM RCMDD DEFIND SCR INTVL, G8752 MOST RECENT SYSTOLIC BP < 140MM HG, G8754 MOST RECENT DIASTOLIC BP < 90MM HG * Follow Up: p rn, 1 week if not better * Images: Billing Information: * Visit Code: 80093 Office Visit, Est Pt., Level 3. * Procedure Codes: 1036F TOBACCO NON-USER. G8783 BP SCR PRFRM RCMDD DEFIND SCR INTVL. G8752 MOST RECENT SYSTOLIC BP < 140MM HG. G8754 MOST RECENT DIASTOLIC BP < 90MM HG. * Electronic signature of Constance Grant APRN on 01/10/2025 at 02:28 PM EST Sign off status: Pending * Provider: SALVADOR Capellan Date: 0 08/01/2024 Generated for Saul kenny/Kathy/Marcusitting on: 03/12/2024 02:28 PM EST History and Physical Notes * HPI (History of Present Illness) Category Sub-Category Detail Notes Category Not es ENT/respiratory ear pain Pt sts she has p ain in her rt ear, and sts she is afraid something may flew in inside of it cough Fever post nasal drainage headache nasal congestion smoking Examination Category Sub-Category Detail Notes Category Not es ENT/Respiratory Oral cavity : no erythema or exudate s een on pharynx Sinuses : non tender bilateral ly Ears: edema right canal General Appearance: NAD Eyes: PERRLA, sclera clear General Examination Heart: RRR Lungs: normal, clear to aus cultation General Appearance: NAD, alert, pleasant Neck: no lymphadenopathy Oral cavity: normal Chest: normal
--- OUTSIDE RECORDS SUMMARY | 2024-09-07 11:15 | XMS_ITS ---
Author Organization [facility] Address 1210 [facility] [address] [id number] Care Team Providers Care Clinical Laboratory Technologist Name Role Phone Yoko Kaye Unavailable [phone] Allergies No Known Allergies REASON FOR VISIT nose ring infection Medications Medication SIG (Take, Route, Frequency, Duration) Notes Start Date End Date Status Cephalexin 500 MG 1 tablet Orally twic e a day; Duration: 10 days 09/07/2024 Active Zepbound 12.5 MG/0.5ML 0.5 mL Subcutaneo us once a week; Duration: 30 days 08/15/2024 Active Ondansetron 4 MG 1 tablet on the tong ue and allow to dissolve Orally 3 times a day prn; Duration: 15 days Active Vitamin D3 1.25 MG (53078 UT) Take 1 capsule by mouth once a week; Duration: 91 Active Ciprofloxacin-dexAMETHason e 0.3-0.1 % 4 gtts into right eat Otic Twice a day; Duration: 7 days 08/01/2024 Active Venlafaxine HCl ER 37.5 MG 1 capsule wit h food Orally Once a day; Duration: 30 days 06/22/2024 Active Ajovy 225 MG/1.5ML as directed Subcutaneous once a month 05/09/2024 Active Zithromax Z-Christian 250 MG as directed Orall y once daily; Duration: 5 day(s) 06/13/2024 Not-Taking Medrol 4 MG as directed Orally Not-Taking Cyclobenzaprine HCl 5 MG 1 tablet Orally Three times a day, prn; Duration: 30 days 07/13/2024 Not-Taking Ventolin HFA 108 (90 Base) MCG/ACT 2 inhalations needed Inhalation four times a day as needed 02/25/2024 Active hydrOXYzine HCl 25 MG TAKE 1 TABLET BY M OUTH ONCE DAILY AT NIGHT NEEDED; Duration: 30 Active Qulipta 60 MG 1 tablet Orally Once a day; Duration: 30 day(s) Active Ubrelvy 50 MG 1 tablet as needed, may take second dose at least 2 hours after first dose up to 4 tablets per day as needed Orally Once a day; Duration: 30 day(s) Active Vital Signs Blood pressure systolic 122 mm Hg 09/08/19 25 Blood pressure diastolic 80 mm Hg 025 Heart Rate 85 /min 09/07/2024 Weight 132.4 lbs 09/07/2024 Encounters Encounter Location Date Provider Diagnosis [facility] [address] [place], [place] [phone] 09/07/2024 Yoko Kaye Puncture wound witho ut foreign body of nose, initial encounter S01.23XA and Local infection of the skin and subcutaneous tissue, unspecified L08.9 Assessments Encounter Date Diagnosis (ICD Code) Assessment Notes Treatment Notes Treatment Clinical Notes Section Notes 09/07/2024 Puncture wound without foreign body of nose, initial encounter (ICD-10 - S01.23XA) 09/07/2024 Local infection of the skin and subcutaneous tissue, unspecified (ICD-10 - L08.9) Plan Of Treatment Medication Medication Name Sig Start Date Stop Date Notes Cephalexin 500 MG 1 tablet Orally twic e a day; Duration: 10 days 09/07/2024 Next Appt Details Follow Up: prn, Reason: Progress Notes * Ward BAINSAdamB: 9 (44 yo F)Acc No.[id number]:09/07/2024 Progress Notes Patient: Diomedes HARDIN Provider: PETERSON Johnson :1980 A ge:43 Y S ex:Female Date:09/07/2024 Address:[address] [place] [address], [id number] Subjective: * Chief Complaints: * 1 . Nose ring infection. * HPI: D ermatology: Nose ring looks infected. * ROS: D ERMATOLOGY: no R srikanth. n o H parth. G ASTROENTEROLOGY: no N ausea. n o V omiting. n o D iarrhea.? U ROLOGY: no D ifficulty urinating. n [...] ONCE DAILY AT NIGHT NEEDED , Taking Ajovy 225 MG/1.5ML Solution Auto-injector as directed Subcutaneous once a month , Taking Venlafaxine HCl ER 37.5 MG Capsule Extended Release 24 Hour 1 capsule with food Orally Once a day , Taking Vitamin D3 1.25 MG (73958 UT) Capsule Take 1 capsule by mouth once a week , Taking Ciprofloxacin-dexAMETHasone 0.3-0.1 % Suspension 4 gtts into right eat Otic Twice a day , Taking Zepbound 12.5 MG/0.5ML Solution Auto-injector 0.5 mL Subcutaneous once a week , Taking Ondansetron 4 MG Tablet Disintegrating 1 tablet on the tongue and allow to dissolve Orally 3 times a day prn , Not-Taking Zithromax Z-Christian 250 MG Tablet as directed Orally once daily , Not-Taking Medrol 4 MG Tablet Therapy Pack as directed Orally , Not-Taking Cyclobenzaprine HCl 5 MG Tablet 1 tablet Orally Three times a day, prn * Allergies: N .K.D.A. Objective: * Vitals: W t: 132.4, Temp: 98.6, BP: 122/80, HR: 85, Nurse: alec. * Examination: G eneral Examination: General Appearance: N AD. S kin: n ose ring is barely visible with a pustule and surrounding erythema. Assessment: * Assessment: 1. P uncture wound without foreign body of nose, initial encounter - S01.23XA (Primary) ? 2 . L ocal infection of the skin and subcutaneous tissue, unspecified - L08.9 ? Plan: * Treatment: * Follow Up: p rn * Images: Billing Information: * Visit Code: 07265 Office Visit, Est Pt., Level 3. * Procedure Codes: * Electronic signature of PETERSON Hawkins on 01/10/2025 at 02:29 PM EST Sign off status: Pending * Provider: PETERSON Johnson Date: 0 09/07/2024 Generated for Saul kenny/Kathy/Chasity on: 1 03/12/2024 02:29 PM EST History and Physical Notes * Examination Category Sub-Category Detail Notes Category Not es General Examination General Appearance: NAD Skin: nose ring is barely visible with a pustule and surrounding erythema
--- OUTSIDE RECORDS SUMMARY | 2024-11-04 11:15 | XMS_ITS ---
[facility] Address [address] [facility] [address] [id number] Care Team Providers Care Plant Assigner Name Role Phone Yoko Kaye Unavailable [phone] Allergies No Known Allergies Results Component Value Reference Range Notes CBC Venipuncture (in house) Reviewed date:11/04/2024 05:38:21 PM Interpretation: Performing Lab: Notes/Report: wbc 6.9 3.5 - 10 lymph 26.6 15 - 50 mid 7.2 2 - 15 gran 66.2 35 - 80 rbc 4.57 3.5 - 5.5 hgb 13.7 11.5 - 16.5 hct 40.3 35 - 55 mcv 88.1 75 - 100 mch 29.9 25 - 35 mchc 33.9 31 - 38 platlet 328 100 - 400 P-Comprehensive Metabolic Pa meghann (CMP) Reviewed date:11/07/2024 05:45:41 PM Interpretation:Normal Performing Lab: Notes/Report: CLIA: [id number] Diego Crouch MD, Coil Finisher [address] [place] [address] , [address], [place] [address] Test performed by [facility], [employer] Sodium 140 135-145 mmol/L Potassium 3.6 3.5-5.3 mmol/L Chloride 102 97-108 mmol/L CO2 27 20-32 mmol/L Glucose 85 65-99 mg/dL BUN 8 6-20 mg/dL Creatinine 0.61 0.50-1.00 mg/dL Calcium 9.7 8.6-10.4 mg/dL eGFR by Creatinine 112 >59 mL/min/1.73m2 Protein 6.7 6.0-8.3 g/dL Albumin 4.4 3.5-5.3 g/dL Alkaline Phosphatase 88 35-121 IU/L ALT (SGPT) 17 <5-47 IU/L AST (SGOT) 23 <5-40 IU/L Bilirubin, Total 0.3 <0.2-1.2 mg/dL A/G Ratio 1.9 1.1-2.5 P-CPK Reviewed date:11/07/2024 05:45:41 PM Interpretation:Normal Performing Lab: Notes/Report: Test performed by [facility] [address] , [facility], [place] [address] Diego Crouch MD, Coil Finisher CLIA: [id number] Creatine Kinase 31 20-180 U/L P-Magnesium Reviewed date:11/07/2024 05:45:41 PM Interpretation:Normal Performing Lab: Notes/Report: Test performed by [facility] [address] , [place] [address] Diego Crouch MD, Coil Finisher CLIA: [id number] Magnesium 2.2 1.6-2.4 mg/dL P-TSH reflex to FT4 Reviewed date:11/07/2024 05:45:41 PM Interpretation:Normal Performing Lab: Notes/Report: [facility] , [place] [address] Diego Crouch MD, Coil Finisher CLIA: [id number] TSH reflex to FT4 0.82 0.43-5.25 mU/L P-Vitamin D 25-Hydroxy Reviewed date:11/07/2024 05:45:41 PM Interpretation:High Performing Lab: Notes/Report: Test performed by [facility] [address] , [address], [place] [address] Diego Crouch MD, Coil Finisher CLIA: [id number] Vitamin D 25-Hydroxy 109.0 30.0-100.0 ng/mL Interpretation of Vitamin D 25 OH: < 20 ng/mL - Deficiency 20 - 29 ng/mL - Insufficiency 30 - 100 ng/mL - Sufficiency > 100 ng/mL - Super-therapeutic- toxicity may occur above this level. Clinical correlation required. REASON FOR VISIT chest spasm; pain in back left shoulder blade Medications Medication SIG (Take, Route, Frequency, Duration) Notes Start Date End Date Status Ajovy 225 MG/1.5ML as directed Subcutan eous once a month 05/09/2024 Active Ubrelvy 50 MG 1 tablet as needed, may take second dose at least 2 hours after first dose up to 4 tablets per day as needed Orally Once a day; Duration: 30 day(s) Active hydrOXYzine HCl 25 MG TAKE 1 TABLET BY M OUTH ONCE DAILY AT NIGHT NEEDED; Duration: 30 Active Qulipta 60 MG 1 tablet Orally Once a day; Duration: 30 day(s) Active Zepbound 12.5 MG/0.5ML INJECT 1 SYRINGE SUBCUTANEOUSLY ONCE A WEEK; Duration: 28 Active Venlafaxine HCl ER 37.5 MG 1 capsule with food Orally Once a day; Duration: 30 days 06/22/2024 Active Vitamin D3 1.25 MG (85044 UT) Take 1 capsule by mouth once a week; Duration: Active Ondansetron 4 MG 1 tablet on the tong ue and allow to dissolve Orally 3 times a day prn; Duration: 15 days Active Encounters Encounter Location Date Provider Diagnosis [facility] [address] [id number] 11/04/2024 Yoko Kaye Chest wall pain R07. 89 ; Muscle spasm M62.838 and Vitamin D deficiency E55.9 Assessments Encounter Date Diagnosis (ICD Code) Assessment Notes Treatment Notes Treatment Clinical Notes Section Notes 11/04/2024 Chest wall pain (ICD-10 - R07.89) 11/04/2024 Muscle spasm (ICD-10 - M62.838) 11/04/2024 Vitamin D deficiency (ICD-10 - E55.9) Plan Of Treatment Next Appt Details Follow Up: via phone to repo rt test results, Reason: Progress Notes * Amrik BAINSB: 9 (44 yo F)Acc No.[id number]:11/04/2024 Progress Notes Patient: Diomedes HARDIN Provider: PETERSON Johnson :1980 A ge:43 Y S ex:Female Date:11/04/2024 Address:[address] [place] [id number] Subjective: * Chief Complaints: * 1 . Chest spasm; pain in back left shoulder blade. * HPI: C ardiology: 43 year old female presents with c/o Chest Pain P t also has c/o having chest spasms, she has them off and on but the one she recently had radiated to her back, she does not think it is cardiac in nature. She has lost a lot of weight and is wondering if she could be deficient in something. She would like labs. . * ROS: D ERMATOLOGY: no R srikanth. [...] needed Orally Once a day , Taking hydrOXYzine HCl 25 MG Tablet TAKE 1 TABLET BY MOUTH ONCE DAILY AT NIGHT NEEDED , Taking Ajovy 225 MG/1.5ML Solution Auto-injector as directed Subcutaneous once a month , Taking Venlafaxine HCl ER 37.5 MG Capsule Extended Release 24 Hour 1 capsule with food Orally Once a day , Taking Vitamin D3 1.25 MG (40415 UT) Capsule Take 1 capsule by mouth once a week , Taking Ondansetron 4 MG Tablet Disintegrating 1 tablet on the tongue and allow to dissolve Orally 3 times a day prn , Taking Zepbound 12.5 MG/0.5ML Solution Auto-injector INJECT 1 SYRINGE SUBCUTANEOUSLY ONCE A WEEK * Allergies: N .K.D.A. Objective: * Vitals: W t: Not Taken - No Medical Need, Temp: 98.7, Nurse: alec. * Examination: G eneral Examination: General Appearance: N AD. C hest: n ormal shape and expansion, no ttp. H eart: R SR. L ungs: c lear to auscultation. ? Assessment: * Assessment: 1. C hest wall pain - R07.89 (Primary) 2 . M uscle spasm - M62.838 ? 3 . V itamin D deficiency - E55.9 Plan: * Treatment: Value Reference Range A /G Ratio 1.9 1.1-2.5 - * A lbumin 4.4 3.5-5.3 - g/dL * A lkaline Phosphatase 88 35-121 - IU/L * A LT (SGPT) 17 <5-47 - IU/L * A ST (SGOT) 23 <5-40 - IU/L * B ilirubin, Total 0.3 <0.2-1.2 - mg/dL * B UN 8 6-20 - mg/dL * C alcium 9.7 8.6-10.4 - mg/dL * C hloride 102 97-108 - mmol/L * C O2 27 20-32 - mmol/L * C reatinine 0.61 0.50-1.00 - mg/dL * G lucose 85 65-99 - mg/dL * P otassium 3.6 3.5-5.3 - mmol/L * S odium 140 135-145 - mmol/L * P rotein 6.7 6.0-8.3 - g/dL * e GFR by Creatinine 112 >59 - mL/min/1.73m2 * Evelyn Sheth 11/07/2024 05:4 5:33 PM EDT > See phone encounter ?LAB: P-TSH reflex to FT4 (Collection Date & Time - 11/04/2024 01:53 PM)? Normal* Value Reference Range T SH reflex to FT4 0.82 0.43-5.25 - mU/L * Evelyn Sheth 11/07/2024 05:4 5:33 PM EDT > See phone encounter ?LAB: CBC Venipuncture (in house) (Collection Date & Time - 11/04/2024)* Value Reference Range w bc 6.9 3.5 - 10 * l ymph 26.6 15 - 50 * m id 7.2 2 - 15 * g ran 66.2 35 - 80 * r bc 4.57 3.5 - 5.5 * h gb 13.7 11.5 - 16.5 * h ct 40.3 35 - 55 * m cv 88.1 75 - 100 * m ch 29.9 25 - 35 * m chc 33.9 31 - 38 * p latlet 328 100 - 400 * Ila Peralta 11/04/2024 03:20 :24 PM EDT > 2.?Muscle spasm?LAB: P-CPK (Collection Date & Time - 11/04/2024 01:53 PM)?Normal* Value Reference Range C reatine Kinase 31 20-180 - U/L * Evelyn Sheth 11/07/2024 05:4 5:33 PM EDT > See phone encounter ?LAB: P-Magnesium (Collection Date & Time - 11/04/2024 01:53 PM)?Normal* Value Reference Range M agnesium 2.2 1.6-2.4 - mg/dL * Evelyn Sheth 11/07/2024 05:4 5:33 PM EDT > See phone encounter 3.?Vitamin D deficiency?LAB: P-Vitamin D 25-Hydroxy (Collection Date & Time - 11/04/2024 01:53 PM)? High* Value Reference Range V itamin D 25-Hydroxy 109.0 H 30.0-100.0 - ng/mL * Evelyn Sheth 11/07/2024 05:4 5:33 PM EDT > See phone encounter * Procedure Codes: 8 5025 CBC WITH AUTO DIFF, 97971 VENIPUNCT, ROUTINE* * Follow Up: v ia phone to report test results * Images: Billing Information: * Visit Code: 44280 Office Visit, Est Pt., Level 3. * Procedure Codes: 64719 CBC WITH AUTO DIFF. 13084 VENIPUNCT, ROUTINE*. * Electronic signature of PETERSON Hawkins on 01/10/2025 at 02:28 PM EST Sign off status: Pending * Provider: PETERSON Johnson Date: 0 11/04/2024 Generated for Printi ng/Kathy/eTransmitting on: 1 03/12/2024 02:28 PM EST History and Physical Notes * HPI (History of Present Illness) Category Sub-Category Detail Notes Category Not es Cardiology Chest Pain Pt also has c/o having chest spasms, she has them off and on but the one she recently had radiated to her back, she does not think it is cardiac in nature. She has lost a lot of weight and is wondering if she could be deficient in something. She would like labs. Examination Category Sub-Category Detail Notes Category Not es General Examination Heart: RSR Lungs: clear to auscultatio n General Appearance: NAD Chest: normal shape and exp ansion, no ttp
--- NOTE | 2025-01-10 14:24 | MM_ITS ---
PROCEDURE INFORMATION: Exam: MG Bilateral Screening 3D Mammography Exam date and time: 01/10/2025 2:25 PM Age: 44 years old Clinical indication: Screening examination. Her maternal aunt had breast cancer. TECHNIQUE: Imaging protocol: Bilateral Screening tomosynthesis and 2D mammography including computer-aided detection (CAD) when performed. COMPARISON: 1. MG MM DIG SCREENING MAMM BI W/CAD 04/14/2022 12:56 PM 2. MG MAMMO SCREENING DIGITAL TOMOSYNTHESIS BILATERAL W CAD 12/26/2019 2:33 PM 3. US BREAST LEFT LIMITED 01/06/2020 8:12 AM FINDINGS: MAMMOGRAPHY: Breast composition: The breasts are heterogeneously dense, which may obscure small masses. Mass: None. Architectural distortion: None. Calcifications: No suspicious calcifications. Asymmetric density: No developing asymmetry. Skin thickening: None. Axillary adenopathy: None. IMPRESSION: No mammographic evidence of malignancy. Annual screening is recommended unless otherwise clinically indicated. ASSESSMENT: BI-RADS Category 1: Negative.
--- OUTSIDE RECORDS SUMMARY | 2025-01-10 14:29 | XMS_ITS | Clinical Summary ---
Author Organization [facility] ([place], [place], [place], [place], [place]) Address [address] [place] [address] Care Team Providers Care Manager Union Name Role Phone Unavailable Primary Care Provider Unavailabl e Allergies No known active allergies Medications atogepant (Qulipta) 10 mg Tab Take 10 mg by mouth daily. 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 No 01/08/2023 Lack of Transportation (Non-Medical) Not on file 01/08/2023 Food Insecurity Answer Date Recorded Food run out past 12 months Not on file 03/02 Food did not last past 12 months Not on file 03/13/2023 Employment Answer Date Recorded Help finding and keeping a job Not on file 0 03/13/2023 Family and Community Support Answer Fernando e Recorded Help with Day to Day Activities Not on file 03/13/2023 Feeling Lonely or Isolated Not on file 03/13 Educational Attainment Answer Date Walt rded Speak language other than Bangladeshi at home Not on file 03/13/2023 Want help with school or training Not on file 03/13/2023 Substance Use Answer Date Recorded Used prescription meds for non-medical reasons N ot on file 03/13/2023 Used illegal drugs past 12 months Not on file 03/13/2023 Comments No Sex and Gender Information Value Date Recorded Sex Assigned at Not on file Legal Sex Female 4:47 PM CDT Gender Identity Not on file Sexual Orientation Not on file Last Filed Vital Signs Vital Sign Reading Time Taken Comments Blood Pressure 131/85 01/09/2023 11:03 AM EST Pulse 81 01/09/2023 11:03 AM EST Temperature 37.1 C (98.8 F) 01/09/2023 11:03 AM EST Respiratory Rate 18 01/09/2023 8:11 AM EST Oxygen Saturation 97% 01/09/2023 11:03 AM EST Inhaled Oxygen Concentration - - Weight 71.2 kg (157 lb) 01/09/2023 9:46 AM EST Height 154.9 cm (5' 1 ) 01/09/2023 9:46 AM EST Body Mass Index 29.66 01/09/2023 9:46 AM EST Plan of Treatment Health Maintenance Due Date Last Done Comments CT Colonography 1978 Colonoscopy 1978 Colorectal Cancer Screening 1978 FOBT/FIT 1978 Fit-DNA (Cologuard) 1978 Sigmoidoscopy 1978 Depression Screening (12+) 1990 HIV Screening 1993 Hepatitis C Screening 1996 DTAP/TDAP/TD VACCINES (1 - Tdap) 1997 Pap Smear 12/02/1999 Breast Cancer Screening 2018 Tobacco Cessation Counseling and Screening (12+) 01/09/2024 01/08/2023 COVID-19 VACCINE (2 - 2024-2 6 season) 2024 05/12/2020 Influenza Vaccine (#1) 2024 Lipid Panel 01/09/2028 01/08/2023 Pneumococcal Vaccine: 0-49 Years Aged Out No longer eligible based on patient's age to complete this topic Procedures Procedure Name Priority Date/Time Associated Diagnosis Comments LIPID PANEL STAT 01/08/2023 4:44 PM EST from Last 3 Months or Most Recently Relevant to Health Maintenance Results * Lipid panel (01/08/2023 4:44 PM EST) Triglycerides 77 0 - 249 mg/dL 01/08/2023 5:20 PM EST [facility] Cholesterol 144 0 - 199 mg/dL 01/08/2023 5:20 PM EST [facility] Comment: 200 to 239 mg/dL = Moderate (borderline) >239 mg/dL = High HDL Cholesterol 53 >=40 mg/dL 5:20 PM EST [facility] Comment: >=60 mg/dL = Desirable <40 mg/dL = Increased Risk All other components are listed individually or are calculations VLDL Cholesterol 15.4 5 - 40 mg/dL 01/08/2023 5:20 PM EST [facility] Cholesterol/HDL ratio 2.7 0.0 - 3.2 01/08/2023 5:20 PM EST [facility] LDl/HDL Ratio 1 0 - 4 01/08/2023 5:20 PM EST [facility] RISK COMP 3 01/08/2023 5:20 PM [facility] LDL Cholesterol, Calculated 76 0 - 99 mg/dL 01/08/2023 5:20 PM [facility] Blood Venipuncture / Unknown 01/08/2023 4:44 PM EST 01/08/2023 4:44 PM EST us Jacques Motley MD LAB BLOOD ORDERABLES Final Resu lt [facility] [address] [place] [address], [facility] [phone] from Last 3 Months or Most Recently Relevant to Health Maintenance [id number] MEDICAID [facility] Advance Directives For more information, please contact: [phone] * Full Code (Latest Code Status on File) Date Activated Date Inactivated Comments 01/08/2023 3:54 PM 01/09/2023 6:22 PM
--- OUTSIDE RECORDS SUMMARY | 2025-01-10 14:29 | XMS_ITS | Clinical Summary ---
[facility] Organization [facility] Address [address] [place] [address] Care Team Providers Care Supervisor Telephone Answering Service Name Role Phone Bryan Coe MD Primary Care Provider + Family History Medical History Relation Name Comments Breast cancer Neg Hx Ovarian cancer Neg Hx Social History Tobacco Use Types Packs/Day Years Used Date Smoking Tobacco: Never Assessed Abuse Screen Answer Date Recorded Unsafe at Home or Work/School Not on file Feels Threatened by Someone? Not on file 10/2022 Does Anyone Keep You from Co ntacting Others or Doint Things Outside the Home? Not on file 12/08/2022 Physical Sign of Abuse Present Not on file 1 Housing Stability Answer Date Recorded Current Living Arrangements Not on file 10/2022 Potentially Unsafe Housing Conditions Not on jeimy e 12/08/2022 Family and Community Support Answer Fernando e Recorded Help with Day-to-Day Activities Not on file 12/08/2022 Lonely or Isolated Not on file 12/08/2022 Employment Answer Date Recorded Do you want help finding or keeping work or a shakira b? Not on file 12/08/2022 Disabilities Answer Date Recorded Concentrating, Remembering, or Making Decisions Difficulty Not on file 12/08/2022 Doing Errands Independently Difficulty Not on fi le 12/08/2022 Education Answer Date Recorded Help with school or training? Not on file Preferred Language Not on file 12/08/2022 Comments No Sex and Gender Information Value Date Recorded Sex Assigned at Not on file Legal Sex Female 11:36 AM EDT Gender Identity Not on file Sexual Orientation Not on file Plan of Treatment Health Maintenance Due Date Last Done Comments ANNUAL PHYSICAL 1980 Annual Gynecologic Pelvic an d Breast Exam 1980 HEPATITIS C SCREENING 1978 TDAP/TD VACCINES (1 - Tdap) 1997 MAMMOGRAM 12/25/2021 12/26/2019 COLOGUARD 12/02/2023 COLON CANCER SCREENING 5 YEA R SIGMOIDOSCOPY 12/02/2023 COLONOSCOPY 12/02/2023 COLORECTAL CANCER SCREENING 12/02/2023 CT COLONOGRAPHY 12/02/2023 FECAL OCCULT BLOOD TEST 12/02/2023 FIT Testing (1 year) 12/02/2023 INFLUENZA VACCINE 09/30/2024 Pneumococcal Vaccine 0-49 Aged Out No longer eligible based on patient's age to complete this topic Procedures Procedure Name Priority Date/Time Associated Diagnosis Comments MAMMO SCREENING DIGITAL TOMOSYNTHESIS BILATERAL W CAD Routine 12/26/2019 2:24 PM EDT Visit for screening mammogram from Last 3 Months or Most Recently Relevant to Health Maintenance Results * (ABNORMAL) Mammo Screening Digital Tomosynthesis Bilateral With CAD (12/26/2019 2:24 PM EDT) Anatomical Region Laterality Modality Breast N/A Mammography 12/30/2019 12:2 0 PM EDT Impressions 12/30/2019 3:33 PM EDT Findings left breast for which ultrasound evaluation is recommended. ACR BI-RADS CATEGORY: 0, INCOMPLETE: NEEDS ADDITIONAL IMAGING EVALUATION. RECOMMENDATION: Recommend ultrasound evaluation of a 1.0 cm mass in the left upper outer quadrant. CAD was utilized. The standard false-negative rate of mammography is between 10% and 25%. Complex patterns or increased breast density will markedly elevate the false-negative rate of mammography. A letter, in lay terminology, with the results of this exam will be mailed to the patient. The patient will be contacted by our office to schedule for the additional imaging evaluation. Please accept this as sufficient order for the additional imaging evaluation. Physicians Order Diagnostic Breast Ultrasound Diagnosis: Abnormal Screening Mammogram This report was finalized on 12/30/2019 3:[address] Ashley Stephens MD. Narrative 12/30/2019 3:33 PM EDT BILATERAL DIGITAL SCREENING MAMMOGRAM WITH TOMOSYNTHESIS: CLINICAL INDICATION: 39-year-old patient presents for her baseline screening mammogram. She has no reported breast complaints. She reports no family history of breast cancer. TECHNIQUE: Low dose full field digital breast tomosynthesis imaging was performed with 2D and 3D acquisitions consisting of bilateral CC and MLO views. In addition, bilateral exaggerated lateral CC views were obtained. COMPARISON: NONE. FINDINGS:The breasts are heterogeneously dense, which may obscure small masses. RIGHT BREAST: There is no evidence of mass, architectural distortion or suspicious calcifications. LEFT BREAST: There is a 1.0 cm oval isodense mass with partially obscured borders present in the anterior upper outer quadrant. The borders of the mass appear more circumscribed on the tomographic views. No spiculated masses, architectural distortion or suspicious calcifications are seen. Mindi DIAZ IMG MAMMOGRAPHY ORDERAB LES Final Result from Last 3 Months or Most Recently Relevant to Health Maintenance Insurance [facility] Care Teams Supervisor Telephone Answering Service Relationship Specialty Start Date End Date Bryan Coe MD PCP - General Family Medicine 12/26/19
--- OUTSIDE RECORDS SUMMARY | 2025-01-10 14:29 | XMS_ITS | Patient Health Record ---
Author Organization [facility] [address] [facility] [address] SARAH King [id number] Care Team Providers Care Stack Supervisor Name Role Phone Fidel Trevizo Unavailable [phone] Sourav Ramirez Unavailable [phone] Cele Grant Unavailable [phone] Yoko Kaye Unavailable [phone] Allergies No Known Allergies Results Component Value Reference Range Notes P-Vitamin B12 Reviewed date:05/04/2024 08:35:51 AM Interpretation:Normal Performing Lab: Notes/Report: Test performed by [facility] [employer] [address] [place] [address] , [address], [place] [address] Diego Crouch MD, Skin Toggler CLIA: [id number] Vitamin B12 [phone] pg/mL P-Comprehensive Metabolic Pa meghann (CMP) Reviewed date:05/04/2024 08:35:51 AM Interpretation:gluc 110 Performing Lab: Notes/Report: Test performed by [facility] [employer] [address] [place] [address] , [address], [place] [address] Diego Crouch MD, Skin Toggler CLIA: [id number] Sodium 142 135-145 mmol/L Potassium 4.3 3.5-5.3 [...] Interpretation:Normal Performing Lab: Notes/Report: Test performed by [facility] [employer] [address] [place] [address] , [place] [address] Diego Crouch MD, Skin Toggler CLIA: [id number] TSH reflex to FT4 1.17 0.43-5.25 mU/L P-Vitamin D 25-Hydroxy Reviewed date:05/04/2024 08:35:51 AM Interpretation:13.9 Performing Lab: Notes/Report: Test performed by [facility] [employer] [address] [place] [address] , [place] [address] Diego Crouch MD, Skin Toggler CLIA: [id number] Vitamin D 25-Hydroxy 13.9 30.0-100.0 ng/mL Interpretation of Vitamin D 25 OH: < 20 ng/mL - Deficiency 20 - 29 ng/mL - Insufficiency 30 - 100 ng/mL - Sufficiency > 100 ng/mL - Super-therapeutic- toxicity may occur above this level. Clinical correlation required. CBC Fingerstick (in house) Reviewed date:06/13/2024 03:35:53 [...] - 38 plat 202 100 - 400 CBC Venipuncture (in house) Reviewed date:07/07/2024 08:18:19 [...] Normal Performing Lab: Notes/Report: Test performed by [facility] [employer] [address] [place] [address] , [place] [address] Diego Crouch MD, Skin Toggler CLIA: [id number] Sodium 139 135-145 mmol/L Potassium 4.2 3.5-5.3 [...] Normal Performing Lab: Notes/Report: Test performed by [facility] [employer] [address] [place] [address] , [address], [place] [address] Diego Crouch MD, Skin Toggler CLIA: [id number] PT 10.9 9.5-12.2 sec INR 1.0 0.9-1.2 [...] Normal Performing Lab: Notes/Report: Test performed by [facility] [employer] [address] [place] [address] , [address], [place] [address] Diego Crouch MD, Skin Toggler CLIA: [id number] Partial Thromboplastin Time (PTT) 28.0 23.9-33.0 sec Heparin therapeutic range has not been validated for this assay. P-Vitamin D 25-Hydroxy Reviewed date:07/07/2024 08:18:19 AM Interpretation: Normal Performing Lab: Notes/Report: Test performed by [facility] [employer] [address] [place] [address] , [address], [place] [address] Diego Crouch MD, Skin Toggler CLIA: [id number] Vitamin D 25-Hydroxy 69.6 30.0-100.0 ng/mL Interpretation of Vitamin D 25 OH: < 20 ng/mL - Deficiency 20 - 29 ng/mL - Insufficiency 30 - 100 ng/mL - Sufficiency > 100 ng/mL - Super-therapeutic- toxicity may occur above this level. Clinical correlation required. CBC Venipuncture (in house) Reviewed date:11/04/2024 05:38:21 [...] Interpretation:Normal Performing Lab: Notes/Report: Test performed by [facility] [employer] [address] [place], [place] [address]TM[place] [address], [place] [id number] Diego Crouch MD, Skin Toggler CLIA: [id number] Sodium 140 135-145 mmol/L Potassium 3.6 3.5-5.3 [...] Interpretation:Normal Performing Lab: Notes/Report: Test performed by [facility] [address] [place] [address] Diego Crouch MD, Skin Toggler CLIA: [id number] Creatine Kinase 31 20-180 U/L P-Magnesium Reviewed date:11/07/2024 05:45:41 PM Interpretation:Normal Performing Lab: Notes/Report: Test performed by [facility] [address] , [place] [address] Diego Crouch MD, Skin Toggler CLIA: [id number] Magnesium 2.2 1.6-2.4 mg/dL P-TSH reflex to FT4 Reviewed date:11/07/2024 05:45:41 PM Interpretation:Normal Performing Lab: Notes/Report: Test performed by [facility] [address] [place] [address] [place] [address] Diego Crouch MD, Skin Toggler CLIA: [id number] TSH reflex to FT4 0.82 0.43-5.25 mU/L P-Vitamin D 25-Hydroxy Reviewed date:11/07/2024 05:45:41 PM Interpretation:High Performing Lab: Notes/Report: Test performed by [facility] [address] [facility] [place] [address] Diego Crouch MD, Skin Toggler CLIA: [id number] Vitamin D 25-Hydroxy 109.0 30.0-100.0 ng/mL Interpretation of Vitamin D 25 OH: < 20 ng/mL - Deficiency 20 - 29 ng/mL - Insufficiency 30 - 100 ng/mL - Sufficiency > 100 ng/mL - Super-therapeutic- toxicity may occur above this level. Clinical correlation required. Covid test (in house) Reviewed date:02/25/2024 03:37:22 PM Interpretation:neg Performing Lab: Notes/Report: neg Result: neg P-CBC with Diff plus Absolut e Counts Reviewed date:03/01/2024 04:29:52 PM Interpretation:rdw 38.3, lymph 9.9, abs lymph 0.7, abs gran 0.04 Performing Lab: Notes/Report: Test performed by [employer], [address] , [address], [place] [address] Diego Crouch MD, Skin Toggler CLIA: [id number] WBC 7.4 3.8-11.5 K/uL Red Blood Cell [...] Absolute Immature Granulocyte 0.04 0.00-0.03 K /uL Influenza Screen (in house) Reviewed date:02/25/2024 03:37:30 PM Interpretation:neg Performing Lab: Notes/Report: neg results neg P-CBC with Diff plus Absolut e Counts Reviewed date:04/20/2024 09:56:59 AM Interpretation:Normal Performing Lab: Notes/Report: Test performed by [employer] [facility], [address] , [address], [place] [address] Diego Crouch MD, Skin Toggler CLIA: [id number] WBC 7.1 3.8-11.5 K/uL Red Blood Cell [...] Absolute Immature Granulocyte 0.01 0.00-0.03 K /uL Reason For Referral No Information Medications Medication SIG (Take, Route, Frequency, Duration) Notes Start Date End Date Status Zepbound 15 MG/0.5ML 0.5 mL Subcutaneous once a week; Duration: 30 days 01/09/2025 Active Ajovy 225 MG/1.5ML as directed Subcutan [...] DAILY AT NIGHT NEEDED; Duration: 30 Active DULoxetine HCl 30 MG 1 capsule Orally On ce a day; Duration: 90 days Active Qulipta 60 MG 1 tablet Orally Once a day; Duration: 30 day(s) Active Venlafaxine HCl ER 37.5 MG 1 capsule wit h food Orally Once a day; Duration: 30 days 06/22/2024 Active Vitamin D3 1.25 MG (09620 UT) Take 1 capsule by mouth once a week; Duration: Active Ondansetron 4 MG 1 tablet on the tong ue and allow to dissolve Orally 3 times a day prn; Duration: 15 days Active Problems Problem Type SNOMED Code ICD Code Onset Dates Problem Status W/U Status Risk Notes Problem Vitamin D deficiency (42870796) Vitamin D deficiency (E55.9) Active confirmed Problem Mixed anxiety and depressive disorder (032042594) Depression with anxiety (F41.8) Active confirmed Vital Signs Heart Rate 85 /min 09/07/2024 Blood pressure diastolic 80 mm Hg 09/07/2024 Blood pressure systolic 122 mm Hg 09/07/2024 Weight 132.4 lbs 09/07/2024 Encounters Encounter Location Date Provider Diagnosis [facility] [address] [facility] [address] [place] [id number] 01/14/2024 Yoko Kaye Depression with anxiety F41.8 [facility] [address] [facility] [address] [place] [id number] 02/25/2024 J Fausto Santhosh Bronchitis J40 [facility] [address] [facility] [address] [place] [id number] 04/15/2024 J Fausto Santhosh Bronchitis J40 [facility] [address] [facility] [address] [place] [id number] 04/29/2024 Yoko Kaye Other fatigue R53.83 [facility] [address] [place] [id number] 06/13/2024 Sourav [place] Acute URI J06.9 [facility] [address] [place] [id number] 07/06/2024 Sourav [place] Easy bruising R23.3 and Vitamin D deficiency E55.9 [facility] [address] [place] [id number] 07/13/2024 Yoko Crowdy Neck muscle spasm M62.838 [facility] [address] [place] [id number] 08/01/2024 Cele Grant Otalgia H92.09 [facility] [address] [place] [id number] 09/07/2024 Yoko Crowdy Puncture wound witho ut foreign body of nose, initial encounter S01.23XA and Local infection of the skin and subcutaneous tissue, unspecified L08.9 [facility] [address] [place] [id number] 11/04/2024 Yoko Crowdy Chest wall pain R07. 89 ; Muscle spasm M62.838 and Vitamin D deficiency E55.9 [facility] [address] [place] [id number] 01/15/2024 Yoko Crowdy [facility] [address] [place] [id number] 02/08/2024 Yoko Crowdy [facility] [address] [place] [id number] 02/11/2024 Yoko Crowdy [facility] [address] [place] [id number] 03/14/2024 Yoko Crowdy [facility] [address] [place] [id number] 03/15/2024 Yoko Crowdy [facility] [address] [place] [id number] 03/16/2024 Yoko Crowdy [facility] [address] [place] [id number] 03/23/2024 Yoko Crowdy [facility] [address] [place] [id number] 04/13/2024 Yoko Crowdy [facility] [address] [place] [id number] 04/18/2024 Yoko Crowdy [facility] [address] [place] [id number] 05/03/2024 Sourav [place] [facility] [address] [place] [id number] 05/04/2024 Yoko Crowdy [facility] [address] [place] [id number] 05/09/2024 Yoko Crowdy [facility] [address] [place] [id number] 05/10/2024 Yoko Crowdy [facility] [address] [place] [id number] 05/12/2024 Yoko Crowdy [facility] [address] [place] [id number] 05/23/2024 Yoko Crowdy [facility] [address] [place] [id number] 06/03/2024 Yoko Crowdy [facility] [address] [place] [id number] 06/20/2024 Yoko Crowdy [facility] [address] [place] [id number] 06/27/2024 Yoko Crowdy [facility] [address] [place] [id number] 07/04/2024 Sourav [place] [facility] [address] [place] [id number] 07/11/2024 Yoko Crowdy [facility] [address] [place] [id number] 07/20/2024 Yoko Crowdy [facility] [address] [place] [id number] 08/15/2024 Yoko Crowdy [facility] [address] [place] [id number] 09/19/2024 Yoko Crowdy [facility] [address] [place] [id number] 09/29/2024 Yoko Crowdy [facility] [address] [place] [id number] 10/18/2024 Yoko Crowdy [facility] [address] [place] [id number] 11/07/2024 Yoko Crowdy [facility] [address] [place] [id number] 11/08/2024 Yoko Crowdy [facility] [address] [place] [id number] 12/07/2024 Yoko Crowdy [facility] [address] [place] [id number] 12/15/2024 Yoko Crowdy [facility] [address] [place] [id number] 12/21/2024 Yoko Crowdy [facility] [address] [place] [id number] 01/09/2025 Ykoo Crowdy Assessments Encounter Date Diagnosis (ICD Code) Assessment Notes Treatment Notes Treatment Clinical Notes Section Notes 01/14/2024 Depression with anxiety (ICD-10 - F41.8) 02/25/2024 Bronchitis (ICD-10 - J40) 04/15/2024 Bronchitis (ICD-10 - J40) 04/29/2024 Other fatigue (ICD-10 - R53.83) 06/13/2024 Acute URI (ICD-10 - J06.9) 07/06/2024 Vitamin D deficiency (ICD-10 - E55.9) 07/06/2024 Easy bruising (ICD-10 - R23.3) 07/13/2024 Neck muscle spasm (ICD-10 - M62.838) 08/01/2024 Otalgia (ICD-10 - H92.09) Start antibiotic ear drops, start taking a claritin 09/07/2024 Local infection of the skin and subcutaneous tissue, unspecified (ICD-10 - L08.9) 09/07/2024 Puncture wound without foreign body of nose, initial encounter (ICD-10 - S01.23XA) 11/04/2024 Chest wall pain (ICD-10 - R07.89) 11/04/2024 Muscle spasm (ICD-10 - M62.838) 11/04/2024 Vitamin D deficiency (ICD-10 - E55.9) Plan Of Treatment Pending Test Test Name Order Date Ultrasound : Breast, left 12/29/2024 CBC Venipuncture (in house) 04/29/2024 Mammogram 12/21/2024 Insurance Providers Payer Name Payer Address Payer Phone Subscriber Number Group Number Insured Name Patient Relationship to Insured Coverage Start Date Coverage End Date [facility] [employer] [address] [place] [address] [id number] Diomedes Morris Self - patient is the insured Medical (General) History Medical History History ICD Code migraine headache Vitamin D deficiency Surgical History Surgery Date(Month/Year) Cholecystectomy 10/2023 ERCP with stent placement 11/2023 ERCP with stent removal 01/2024 Tubal ligation 12/2010
--- OUTSIDE RECORDS SUMMARY | 2025-01-10 14:29 | XMS_ITS | Patient Health Record ---
Author Organization [facility] Address [address] [facility] [address] [place] [address] Care Team Providers Care Power Distribution Engineer Name Role Phone Trinh Torres Unavailable [phone] Reason For Referral No Information Social History Social History Additional Details Category Social Info Options Details Miscellaneous: Sexually active: SEXUAL AC TIV: Current Caffeine: CAFFEINE USE: 1- 3 /day Problems Problem Type SNOMED Code ICD Code Onset Dates Problem Status W/U Status Risk Notes Problem Human papilloma virus deoxyribonucleic acid test positive, 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 (509394693677812) ASCUS with positive high risk HPV cervical (R87.810) 2021 Active confirmed CERV HIGH RISK HUMAN PAPILLOMAVIRUS DNA TEST POS Problem Gynecological examination normal (520895062265810) Cervical smear, as part of routine gynecological examination (Z01.419) 2019 Active confirmed Annual without abnormal findings Problem Complex cyst of left ovary (66531646898102801 ) Complex cyst of left ovary (N83.292) 2020 Active confirmed Other ovarian cyst, left side Problem Body mass index 30.00 to 34.99 (412984543605114) Adult BMI 32.0-32.9 kg/sq m (Z68.32) 2019 Active confirmed BMI 32-32.9 adult Plan Of Treatment No Information Insurance Providers Payer Name Payer Address Payer Phone Subscriber Number Group Number Insured Name Patient Relationship to Insured Coverage Start Date Coverage End Date [employer] [address] [address] [place], [place] [id number] Diomedes Morris Self - patient is the insured Medical (General) History Medical History History ICD Code MENSTR FLOW: Heavy ABORTIONS: 1 A Routine Abnormal Pap Acid Reflux Anxiety Asthma Bacterial Vaginosis Depression Diabetes Endometriosis Irritable Bowel ov cysts
--- OUTSIDE RECORDS SUMMARY | 2025-01-10 14:29 | XMS_ITS | Referral Summary ---
Author Organization [employer] ([place], [place], [place], [place], [place]) Address [address] [place] [address] Care Team Providers Care Sprinkling System Installer Name Role Phone Unavailable Primary Care Provider [...] Date Walt rded Speak language other than Monegasque at home Not on file 03/13/2023 Want [...] 01/09/2023 9:46 AM EST Plan of Treatment Not on file Procedures Procedure Name Priority Date/Time Associated Diagnosis Comments LIPID PANEL STAT 01/08/2023 4:44 PM EST from Last 3 Months or Most Recently Relevant to Health Maintenance Results * Lipid panel (01/08/2023 4:44 PM EST) Triglycerides 77 0 - 249 mg/dL 01/08/2023 5:20 PM [facility] Cholesterol 144 0 - 199 mg/dL 01/08/2023 5:20 PM [facility] Comment: 200 to 239 mg/dL = Moderate (borderline) >239 mg/dL = High HDL Cholesterol 53 >=40 mg/dL 5:20 PM [facility] Comment: >=60 mg/dL = Desirable <40 mg/dL = Increased Risk All other components are listed individually or are calculations VLDL Cholesterol 15.4 5 - 40 mg/dL 01/08/2023 5:20 PM [facility] Cholesterol/HDL ratio 2.7 0.0 - 3.2 01/08/2023 5:20 PM EST [facility] LDl/HDL Ratio 1 0 - 4 01/08/2023 5:20 PM EST [facility] RISK COMP 3 01/08/2023 5:20 PM EST [facility] LDL Cholesterol, Calculated 76 0 - 99 mg/dL 01/08/2023 5:20 PM EST [facility] Blood Venipuncture / Unknown 01/08/2023 4:44 PM EST 01/08/2023 4:44 PM EST us Jacques Motley MD LAB BLOOD ORDERABLES Final Resu lt [facility] [address] [place] [address], [facility] [phone] from Last 3 Months or Most Recently Relevant to Health Maintenance Insurance [place] Advance Directives For more information, please contact: [phone] * Full Code (Latest Code Status on File) Date Activated Date Inactivated Comments 01/08/2023 3:54 PM 01/09/2023 6:22 PM
== END 2025-01-10 23:59 | disposition home or self-care (01) ==
LOC: RAD 14:21
PROVIDERS: PCP Physician Assistant; Visit Provider Physician Assistant
DX: Z12.31 Encounter for screening mammogram for malignant neoplasm of breast (principal); R92.333 Mammographic heterogeneous density, bilateral breasts; Z80.3 Family history of malignant neoplasm of breast
CPT/HCPCS: 77063; 77067